=== PATIENT | female | born 1990 | race Caucasian/White ===

== ENCOUNTER 2019-11-03 09:09 | Outpatient (CLI) | payer OTHER, SELFPAY ==
[2019-11-03 09:45] LABS: Hemoglobin A1C 5.3 % (<5.7)
[2019-11-03 09:54] LABS: Cholesterol 170 mg/dL (0-200); HDL Direct 34 mg/dL; Triglycerides 166 mg/dL (<150)
[2019-11-03 10:05] LABS: LDL Cholesterol Direct 104 mg/dL
[2019-11-05 09:59] LABS: DHEA-Sulfate 110 mcg/dL (18-391)
[2019-11-05 21:03] LABS: FSH 3.7 mIU/mL (***); LH <0.2 mIU/mL (***); Progesterone 0.2 ng/mL (***); Prolactin 37.9 ng/mL (***)
[2019-11-06 15:07] LABS: Testosterone Free 1.1 pg/mL (0.1-6.4); Testosterone Total 6 ng/dL (2-45)
[2019-11-09 20:38] LABS: Estriol <0.10 ng/mL
== END 2019-11-03 09:10 | disposition home or self-care (01) ==
PROVIDERS: Visit Provider Obstetrics & Gynecology
DX: N92.1 Excessive and frequent menstruation with irregular cycle (principal)
CPT/HCPCS: 36415; 80061; 82627; 82677; 83001; 83002; 83036; 84144; 84146; 84402; 84403; 84443

== ENCOUNTER 2019-11-14 11:41 | Emergency (ER) | payer OTHER, SELFPAY ==
[2019-11-14 11:50] VITALS: BP 127/78; PULSE 91; RESP 16; TEMP 36.8; O2SAT 99
--- NOTE | 2019-11-14 12:21 | ED.EYEPROB ---
HPI - Eye Problem General Chief complaint: Eye Problems Stated complaint: eye redness Time Seen by Provider: 11/14/19 12:22 Source: patient and RN notes reviewed Mode of arrival: ambulatory Limitations: no limitations History of Present Illness HPI Narrative: 28 year old female who presents to [facility] care with 3 day history of redness and irritation to her right eye. Patient states that she has increase watering of her right eye but has not noted any purulent drainage. Patient states some burning and aching to her right eye but denies any acute sharp pain or decrease in her vision. Patient states that she does wear soft contact lens and removed them when she noticed the redness and irritation and has been wearing her glasses. MD chief complaint: eye pain, eye redness and other (watering) Onset (ago): day(s) (3) Onset description: gradual Duration: constant Location: right eye Eye Symptoms: burning, redness, pain and discharge Place: home Mechanism: none Severity: mild Severity scale (1-10): 3 If Pain, Quality: burning and aching Context: contact lens use Treatments Prior to Arrival: removed contact lens Related Data Patient tetanus UTD: Yes Home Medications Medication Instructions Recorded Confirmed vit no.[id number] 1 tablet PO DAILY 04/06/19 11/14/19 [Alive ] Allergies Allergy/AdvReac Type Severity Reaction Status Date / Time amoxicillin Allergy THROAT Verified 05/01/19 12:14 SWELLING cefadroxil [From Duricef] Allergy throat Verified 05/01/19 12:14 swelling Penicillins Allergy THROAT Verified 05/01/19 12:14 SWELLING POTASSIUM CLAVULANATE Allergy Mild throat Uncoded 05/01/19 12:14 swelling Review of Systems Review of Systems: Narrative: CONSTITUTIONAL: Denies fever, chills, or sweats. EYES: Denies visual changes,positive redness, and increase tearing of right eye ENT: Denies rhinorrhea, congestion, sore throat, or otalgia. CARDIOVASCULAR: Denies chest pain, palpitations, or edema. RESPIRATORY: Denies cough or dyspnea. GASTROINTESTINAL: Denies abdominal pain, nausea, vomiting, or diarrhea. GENITOURINARY: Denies dysuria or hematuria. SKIN: Denies rash or itching. MUSCULOSKELETAL: Denies back pain, joint pain, or myalgia. NEUROLOGIC: Denies headache, numbness, or weakness. PSYCHIATRIC: positive for history of anxiety or depression. All systems reviewed & are unremarkable except as noted in HPI and below PMFSH Past Medical History Medical History (Updated 11/15/19 @ 14:58 by Margarita John NP) Anxiety Asthma History of narcotic addiction in treatment now Migraine Surgical History Surgical History (Updated 11/15/19 @ 14:56 by Margarita John NP) Hx of myringotomy [place] teeth extracted Family History Family History Grandparent Breast cancer Mother Multiple sclerosis Parkinsonism Social History Social History (Updated 11/14/19 @ 13:02 by Margarita John NP) Smoking status: Former smoker Smoking end date: 02/04/19 Substance use: former Substance use type: amphetamines and opiates Living arrangements: with family Gender identity (if verbalized by the patient): Female Comments At time of signature, agree with nursing past medical, surgical, social history. There is no relevant family history pertinent to the presenting complaint Exam Narrative: Exam Narrative: GENERAL: Well-appearing, well-nourished, and in no acute distress. HEAD: Normocephalic, atraumatic. EYES: PERRLA and EOMI.redness to sclera of right eye and mild redness to conjunctiva of red eye, excessive watering with no purulent drainage noted ENT: Nares clear, no rhinorrhea or epistaxis. Mucous membranes moist. NECK: Supple. CHEST: Clear to auscultation. No respiratory distress. HEART: Regular rate and rhythm. No murmur heard. Normal peripheral pulses. ABDOMEN: Soft, nontender, nondistended, normal active mario
== END 2019-11-14 12:41 | disposition home or self-care (01) ==
PROVIDERS: Emergency Provider Registered Nurse
DX: H10.9 Unspecified conjunctivitis (principal); Z87.891 Personal history of nicotine dependence; J45.909 Unspecified asthma, uncomplicated
CPT/HCPCS: 99213; G0463

== ENCOUNTER 2020-01-29 16:49 | Outpatient (CLI) | payer OTHER, SELFPAY ==
[2020-01-29 18:31] LABS: Alanine Aminotransferase 23 U/L (4-35); Albumin Level 4.3 g/dL (3.5-5.1); Alkaline Phosphatase 103 U/L (38-126); Anion Gap 10 mmol/L (8-16); Aspartate Amino Transferase 28 U/L (14-36); Bilirubin,Total 0.3 mg/dL (0.2-1.3); Blood Urea Nitrogen 15 mg/dL (7-17); Carbon Dioxide 27 mmol/L (22-30); Chloride 104 mmol/L (98-107); Estimated Glomerular Filt Rate > 60; Glucose 101 mg/dL (65-105); Potassium 3.8 mmol/L (3.4-5.0); Sodium 141 mmol/L (137-145)
== END 2020-01-29 16:50 | disposition home or self-care (01) ==
PROVIDERS: Visit Provider Obstetrics & Gynecology
DX: M54.5 Low back pain (principal)
CPT/HCPCS: 36415; 80053

== ENCOUNTER 2020-06-12 15:50 | Emergency (ER) | payer OTHER, SELFPAY ==
[2020-06-12 16:00] VITALS: BP 116/72; PULSE 97; RESP 12; TEMP 36.8; O2SAT 99
--- NOTE | 2020-06-12 16:00 | ED.URI ---
HPI - URI/Sore Throat General Chief Complaint: Upper Respiratory Infection Stated Complaint: sore throat/earache Time Seen by Provider: 06/12/20 16:00 Source: patient and RN notes reviewed Mode of arrival: ambulatory Limitations: no limitations History of Present Illness HPI Narrative: 29 year old female who presents to [facility] care with complaints of sore throat, sinus drainage, and sinus pressure for the past 3-5 days with feelings of tightness in her chest with breathing today. Patient states that she has history of asthma and she has had to use her inhaler more for the past few days. Patient denies any fevers, chills, or sweats, denies any acute shortness of breath but tightness with deep inspiration, lungs clear to auscultation with SAO2 99% on room air. Patient states that her throat is increasingly sore with sinus pressure maxillary and frontal headache, has not taken any OTC pain medication or any sinus Meds. MD elicited complaint: sore throat, nasal congestion and sinus pain Pertinent past history: asthma Onset (ago): day(s) (3-5) Consistency: progressively worsening Severity: moderate Pain scale (0-10): 3 Description of mucous: clear Able to tolerate fluids by mouth: Yes Exacerbating factors: swallowing and deep breaths Relieving factors: nothing Associated symptoms: headache, rhinorrhea, nasal congestion, sore throat, cough and other (tight with breathing) Treatments prior to arrival: other (inhaler) Related Data Home Medications Medication Instructions Recorded Confirmed vit no.[id number] 1 tablet PO DAILY 04/06/19 11/14/19 [Alive ] albuterol sulfate INHALATION 06/12/20 fluticasone propion-salmeterol INHALATION 06/12/20 [Wixela Inhub] Allergies Allergy/AdvReac Type Severity Reaction Status Date / Time amoxicillin Allergy THROAT Verified 05/01/19 12:14 SWELLING cefadroxil [From Duricef] Allergy throat Verified 05/01/19 12:14 swelling Penicillins Allergy THROAT Verified 05/01/19 12:14 SWELLING POTASSIUM CLAVULANATE Allergy Mild throat Uncoded 05/01/19 12:14 swelling Review of Systems Review of Systems: Narrative: CONSTITUTIONAL: Denies fever, chills, or sweats. EYES: Denies visual changes, redness, or discharge. ENT: Positive rhinorrhea, congestion, sore throat, bilateral ear pressure CARDIOVASCULAR: Denies chest pain, palpitations, or edema, reports chest pressure with breathing RESPIRATORY: occasional dry cough denies acute dyspnea some tightness with deep breaths GASTROINTESTINAL: Denies abdominal pain, nausea, vomiting, or diarrhea. GENITOURINARY: Denies dysuria or hematuria. SKIN: Denies rash or itching. MUSCULOSKELETAL: Denies back pain, joint pain, or myalgia. NEUROLOGIC: Positive frontal headache,no numbness, or weakness. PSYCHIATRIC: Positive history anxiety or depression. All systems reviewed & are unremarkable except as noted in HPI and below PMFSH Past Medical History Medical History (Updated 06/12/20 @ 16:41 by Margarita John NP) Anxiety Asthma History of narcotic addiction in treatment now Migraine Surgical History Surgical History (Updated 06/12/20 @ 16:41 by Margarita John NP) Hx of myringotomy Hx of tonsillectomy [place] teeth extracted Family History Family History Grandparent Breast cancer Mother Multiple sclerosis Parkinsonism Social History Social History (Updated 06/12/20 @ 16:41 by Margarita John NP) Smoking status: Former smoker Smoking end date: 02/04/19 Substance use: former Substance use type: amphetamines and opiates Living arrangements: with family Gender identity (if verbalized by the patient): Female Comments At time of signature, agree with nursing past medical, surgical, social and family history. There is no relevant family history pertinent to the presenting complaint Exam Narrative: Exam Narrative: GENERAL: Well-appe
== END 2020-06-12 16:29 | disposition home or self-care (01) ==
PROVIDERS: Emergency Provider Registered Nurse
DX: J06.9 Acute upper respiratory infection, unspecified (principal); J02.9 Acute pharyngitis, unspecified; J45.20 Mild intermittent asthma, uncomplicated; Z87.891 Personal history of nicotine dependence
CPT/HCPCS: 87081; 87880; 99213; G0463

== ENCOUNTER 2020-08-12 09:38 | Emergency (ER) | payer OTHER, SELFPAY ==
[2020-08-12 09:52] VITALS: BP 117/77; PULSE 92; RESP 16; TEMP 37; O2SAT 99
--- NOTE | 2020-08-12 10:12 | ED.URI ---
HPI - URI/Sore Throat General Chief Complaint: Upper Respiratory Infection Stated Complaint: sinus issues/drainage/nasal pressure Time Seen by Provider: 08/12/20 10:02 Source: patient and RN notes reviewed Mode of arrival: ambulatory Limitations: no limitations History of Present Illness HPI Narrative: Patient presents today complaining of a 3-day history of postnasal drip, body aches, chest congestion, slight dry cough, tickling in the throat, nasal congestion, intermittent shortness of breath. History of asthma and seasonal allergies. States approximately 2 to 3 weeks ago she had similar symptoms for which she took Sudafed. States that that time her symptoms improved and she stopped taking the medication. Symptoms came back after she stopped taking the Sudafed. Denies fever, ear pain, nausea or vomiting, rhinorrhea, headache. States she takes a steroid inhaler for her asthma and Zyrtec daily for her allergies. MD elicited complaint: cough and nasal congestion Related Data Home Medications Medication Instructions Recorded Confirmed albuterol sulfate 90 mcg INHALATION PRN PRN 08/12/20 08/12/20 fluticasone propion-salmeterol 50 inh INHALATION DAILY 08/12/20 08/12/20 [Wixela Inhub] Allergies Allergy/AdvReac Type Severity Reaction Status Date / Time amoxicillin Allergy THROAT Verified 08/12/20 09:48 SWELLING cefadroxil [From Duricef] Allergy throat Verified 08/12/20 09:48 swelling Penicillins Allergy THROAT Verified 08/12/20 09:48 SWELLING POTASSIUM CLAVULANATE Allergy Mild throat Uncoded 08/12/20 09:48 swelling Review of Systems Review of Systems: Narrative: CONSTITUTIONAL: Denies fever, chills, or sweats. + Body aches EYES: Denies visual changes, redness, or discharge. ENT: Denies rhinorrhea, sore throat, or otalgia.+ Scratchy throat, nasal congestion, postnasal drip CARDIOVASCULAR: Denies chest pain, palpitations, or edema. RESPIRATORY:+ Slight dry cough, intermittent shortness of breath, chest congestion GASTROINTESTINAL: Denies abdominal pain, nausea, vomiting, or diarrhea. GENITOURINARY: Denies dysuria or hematuria. SKIN: Denies rash, itching, or wounds. MUSCULOSKELETAL: Denies back pain, joint pain, or myalgia. NEUROLOGIC: Denies headache, numbness, tingling, or weakness. PSYCH: Denies depression or anxiety. [facility] Past Medical History Medical History Anxiety Asthma History of narcotic addiction in treatment now Migraine Surgical History Surgical History Hx of myringotomy Hx of tonsillectomy [place] teeth extracted Family History Family History Grandparent Breast cancer Mother Multiple sclerosis Parkinsonism Social History Social History Smoking status: Former smoker Smoking end date: 02/04/19 Substance use: former Substance use type: amphetamines and opiates Gender identity (if verbalized by the patient): Female Comments At time of signature, I have reviewed and agree with nursing past medical, surgical, social and family history unless otherwise noted. Please see nursing chart for further information. There is no relevant family history pertinent to the presenting complaint Exam Narrative: Exam Narrative: GENERAL: Well-appearing, well-nourished, and in no acute distress. HEAD: Normocephalic, atraumatic. EYES: EOMI. No redness or drainage. Conjunctivae normal. ENT: Mucous membranes pink and moist. Nares mildly congested with rhinorrhea. Nasal turbinates mildly edematous. TMs normal bilaterally. Throat normal. Uvula midline. NECK: Normal AROM. Supple. No lymphadenopathy. CHEST: No respiratory distress. Clear to auscultation. HEART: Regular rate and rhythm. No murmur appreciated. Normal peripheral pulses. EXTRE
== END 2020-08-12 10:24 | disposition home or self-care (01) ==
PROVIDERS: Emergency Provider Nurse Practitioner
DX: J30.9 Allergic rhinitis, unspecified (principal); Z87.891 Personal history of nicotine dependence; J45.909 Unspecified asthma, uncomplicated
CPT/HCPCS: 99213; G0463

== ENCOUNTER 2020-09-09 16:47 | Emergency (ER) | payer OTHER, SELFPAY ==
[2020-09-09 16:56] VITALS: BP 122/81; PULSE 102; RESP 12; TEMP 37.2; O2SAT 99
--- NOTE | 2020-09-09 17:29 | ED.URI ---
HPI - URI/Sore Throat General Chief Complaint: Upper Respiratory Infection Stated Complaint: upper respiratory infection Time Seen by Provider: 09/09/20 17:13 Source: patient, RN notes reviewed and old records reviewed Mode of arrival: ambulatory Limitations: no limitations History of Present Illness HPI Narrative: Patient presents today complaint of a 2-day history of sore throat, congestion, postnasal drip, bilateral ear pressure, fatigue. Pain increases in her throat with swallowing. Currently rates her sore throat 3/10. She has been taking Zyrtec, Flonase, and Sudafed. She also uses a steroid inhaler for her asthma. She was seen 1 month ago at [facility] and diagnosed with allergic rhinitis. MD elicited complaint: sore throat Related Data Home Medications Medication Instructions Recorded Confirmed fluticasone propion-salmeterol 50 inh INHALATION DAILY 08/12/20 08/12/20 [Wixela Inhub] Allergies Allergy/AdvReac Type Severity Reaction Status Date / Time amoxicillin Allergy THROAT Verified 09/09/20 18:12 SWELLING cefadroxil [From Duricef] Allergy throat Verified 09/09/20 18:12 swelling Penicillins Allergy THROAT Verified 09/09/20 18:12 SWELLING POTASSIUM CLAVULANATE Allergy Severe throat Uncoded 09/09/20 18:12 swelling Review of Systems Review of Systems: Narrative: CONSTITUTIONAL: Denies body aches, fever, chills, or sweats.+ Fatigue EYES: Denies visual changes, redness, or discharge. ENT: + Throat, congestion, postnasal drip, bilateral ear pressure CARDIOVASCULAR: Denies chest pain, palpitations, or edema. RESPIRATORY: Denies cough or dyspnea. GASTROINTESTINAL: Denies abdominal pain, nausea, vomiting, or diarrhea. GENITOURINARY: Denies dysuria or hematuria. SKIN: Denies rash, itching, or wounds. MUSCULOSKELETAL: Denies back pain, joint pain, or myalgia. NEUROLOGIC: Denies headache, numbness, tingling, or weakness. PSYCH: Denies depression or anxiety. [facility] Past Medical History Medical History Anxiety Asthma History of narcotic addiction in treatment now Migraine Surgical History Surgical History Hx of myringotomy Hx of tonsillectomy [place] teeth extracted Family History Family History Grandparent Breast cancer Mother Multiple sclerosis Parkinsonism Social History Social History Smoking status: Former smoker Smoking end date: 02/04/19 Substance use: former Substance use type: amphetamines and opiates Gender identity (if verbalized by the patient): Female Comments At time of signature, I have reviewed and agree with nursing past medical, surgical, social and family history unless otherwise noted. Please see nursing chart for further information. There is no relevant family history pertinent to the presenting complaint Exam Narrative: Exam Narrative: GENERAL: Well-appearing, well-nourished, and in no acute distress. HEAD: Normocephalic, atraumatic. EYES: EOMI. No redness or drainage. Conjunctivae normal. ENT: Mucous membranes pink and moist. Nares mildly congested with clear rhinorrhea. Left-sided cerumen impaction. Right TM normal. Throat mildly erythematous without edema or exudate. Uvula midline. NECK: Normal AROM. Supple. No lymphadenopathy. CHEST: No respiratory distress. Clear to auscultation. HEART: Regular rate and rhythm. No murmur appreciated. Normal peripheral pulses. EXTREMITIES: Normal range of motion. No edema. SKIN: Warm, dry, no rash. Capillary refill normal. Normal skin turgor. NEURO: No focal deficits. Alert and oriented x3. Gait steady. PSYCH: Normal affect. No signs of depression or anxiety. Course Vital Signs Vital signs: Vital Signs Temperature 98.9 F 09/09/20 16:56 Pulse R
== END 2020-09-09 17:50 | disposition home or self-care (01) ==
PROVIDERS: Emergency Provider Nurse Practitioner
DX: J02.8 Acute pharyngitis due to other specified organisms (principal); J06.9 Acute upper respiratory infection, unspecified; Z20.822 Contact with and (suspected) exposure to COVID-19
CPT/HCPCS: 87081; 87426; 87880; 99213; C9803; G0463

== ENCOUNTER → 2020-12-02 00:41 | Outpatient (CLI) | payer OTHER, SELFPAY ==
[2020-12-02 17:06] LABS: SARS-CoV-2 RNA PCR Negative
== END ==
PROVIDERS: Visit Provider Otolaryngology
DX: Z01.812 Encounter for preprocedural laboratory examination (principal); Z20.822 Contact with and (suspected) exposure to COVID-19
CPT/HCPCS: C9803; U0003; U0005

== ENCOUNTER 2020-12-03 11:01 | Outpatient (CLI) | payer OTHER, SELFPAY | END 2020-12-03 11:02 | disposition home or self-care (01) | LOC: ANHBWCAUD 11:02 | PROVIDERS: Visit Provider Otolaryngology | DX: H66.90 Otitis media, unspecified, unspecified ear (principal) | CPT/HCPCS: 99199 ==

== ENCOUNTER 2020-12-05 00:32 | Day surgery (SDC) | payer OTHER, SELFPAY ==
[2020-11-27 15:00] VITALS: BMI 42.0
--- NOTE | 2020-12-03 06:38 | PM.HPGS ---
History of Present Illness History of Present Illness Consent: Risks, benefits, and alternatives have been discussed and questions answered. Patient agrees to proceed with procedure. Chief complaint: chronic otitis media Narrative: Yanci Charles is a 30 year old female with tubes present in both ears not functioning Review of Systems Review of Systems: All systems reviewed & are unremarkable except as noted in HPI and below PMFSH Past Medical History Medical History Anxiety Asthma History of narcotic addiction in treatment now Migraine Surgical History Surgical History Hx of myringotomy Hx of tonsillectomy [place] teeth extracted Family History Family History Grandparent Breast cancer Mother Multiple sclerosis Parkinsonism Social History Social History Smoking packs per day: 1 Smoking cigarettes per day: 20.0 Years smoked: 15 Smoking pack-years: 15.00 Smoking status: Current every day smoker Tobacco type: e-cigarettes/vaping Smoking end date: 02/04/19 Additional smoking assessment comments: stop smoking cigarettes jan Alcohol intake: never Substance use: former Substance use type: amphetamines and opiates Last use: 2 years in august Gender identity (if verbalized by the patient): Female Spiritual care concerns: No Meds Home Medications and Allergies Home Medications Medication Instructions Recorded Confirmed Type fluticasone propion-salmeterol 50 inh INHALATION DAILY 08/12/20 11/13/20 History [Wixela Inhub] albuterol sulfate INHALATION 11/27/20 History Allergies Allergy/AdvReac Type Severity Reaction Status Date / Time amoxicillin Allergy THROAT Verified 09/09/20 18:12 SWELLING cefadroxil [From Duricef] Allergy throat Verified 09/09/20 18:12 swelling Penicillins Allergy THROAT Verified 09/09/20 18:12 SWELLING POTASSIUM CLAVULANATE Allergy Severe throat Uncoded 09/09/20 18:12 swelling Exam Narrative: chest clear heart without murmurs abdomen soft tubes present in the ears but not function Assessment and Plan Additional Plan plan is removal tubes both ears
--- NOTE | 2020-12-04 09:46 | PM.HPGS ---
History of Present Illness History of Present Illness Consent: Risks, benefits, and alternatives have been discussed and questions answered. Patient agrees to proceed with procedure. Chief complaint: chronic otitis media Narrative: Yanci Charles is a 30 year old female side tubes for a long period of time with recurring infections having tubes removed Review of Systems Review of Systems: All systems reviewed & are unremarkable except as noted in HPI and below PMFSH Past Medical History Medical History Anxiety Asthma History of narcotic addiction in treatment now Migraine Surgical History Surgical History Hx of myringotomy Hx of tonsillectomy [place] teeth extracted Family History Family History Grandparent Breast cancer Mother Multiple sclerosis Parkinsonism Social History Social History Smoking packs per day: 1 Smoking cigarettes per day: 20.0 Years smoked: 15 Smoking pack-years: 15.00 Smoking status: Current every day smoker Tobacco type: e-cigarettes/vaping Smoking end date: 02/04/19 Additional smoking assessment comments: stop smoking cigarettes jan Alcohol intake: never Substance use: former Substance use type: amphetamines and opiates Last use: 2 years in august Gender identity (if verbalized by the patient): Female Spiritual care concerns: No Meds Home Medications and Allergies Home Medications Medication Instructions Recorded Confirmed Type fluticasone propion-salmeterol 50 inh INHALATION DAILY 08/12/20 11/13/20 History [Hola Inhub] albuterol sulfate INHALATION 11/27/20 History Allergies Allergy/AdvReac Type Severity Reaction Status Date / Time amoxicillin Allergy THROAT Verified 09/09/20 18:12 SWELLING cefadroxil [From Duricef] Allergy throat Verified 09/09/20 18:12 swelling Penicillins Allergy THROAT Verified 09/09/20 18:12 SWELLING POTASSIUM CLAVULANATE Allergy Severe throat Uncoded 09/09/20 18:12 swelling Exam Narrative: chest clear other murmurs abdomen soft sent extremities negative tubes in place on both sides Assessment and Plan Additional Plan removal bilateral myringotomy tubes
--- NOTE | 2020-12-04 14:48 | P.PNAN_ITS ---
Anes - Initial Pre Proc Eval Procedure: Operation Date: 12/05/20 10:15 Proposed Procedures p Removal Bilateral Myringotomy Tubes - Alverto Menon MD Date/Time: 12/04/20 14:48 Surgeon: Alverto Menon MD Pre Op Diagnosis: chronic otitis media Patient Data Age: 30 Gender: F Height: 1.52 m Weight: 97.7 kg Allergies Allergy/AdvReac Type Severity Reaction Status Date / Time amoxicillin Allergy THROAT Verified 12/05/20 08:56 SWELLING cefadroxil [From Duricef] Allergy throat Verified 12/05/20 08:56 swelling Penicillins Allergy THROAT Verified 12/05/20 08:56 SWELLING POTASSIUM CLAVULANATE Allergy Severe throat Uncoded 12/05/20 08:56 swelling Home Medications Medication Instructions Recorded Confirmed Type fluticasone propion-salmeterol 50 inh INHALATION DAILY 08/12/20 12/05/20 History [Wixela Inhub] albuterol sulfate 2 inh INHALATION Q2H PRN 11/27/20 12/05/20 History multivit with min-folic acid 1 tablet PO DAILY 12/05/20 12/05/20 History [Adult Multivitamin Gummies] Patient hx anesthesia problems: none Family hx anesthesia problems: none PMFSH Past Medical History Medical History Anxiety Asthma History of narcotic addiction in treatment now Migraine Surgical History Surgical History Hx of myringotomy Hx of tonsillectomy [place] teeth extracted Family History Family History Grandparent Breast cancer Mother Multiple sclerosis Parkinsonism Social History Social History Smoking packs per day: 1 Smoking cigarettes per day: 20.0 Years smoked: 15 Smoking pack-years: 15.00 Smoking status: Current every day smoker Tobacco type: e-cigarettes/vaping Smoking end date: 02/04/19 Additional smoking assessment comments: stop smoking cigarettes jan Alcohol intake: never Substance use: former Substance use type: amphetamines and opiates Last use: 2 years in august Living arrangements: with family Gender identity (if verbalized by the patient): Female Sexual Orientation (if Verbalized by the Patient): Straight or Heterosexual Spiritual care concerns: No Anes - Eval Final PreProcedure Day of Procedure 12/04/20 14:48 Patient weight: morbidly obese Heart: regular rate and rhythm Lungs: clear to auscultation and normal air movement Airway: Mallampati scale Neurological: alert and oriented Last oral intake: >/= 8 hours ASA classification: III Emergent: no Anesthetic plan: proceed Anesthesia type and monitoring: general GIVS and LMA Informed Consent: The patient's anesthetic plan and its attendant risks and benefits were discussed with the patient/family/POA. Questions were solicited and answers provided to the satisfaction of the patient/family/POA.
[2020-12-05] VITALS (8 sets, daily range): BP systolic 111–128; BP diastolic 64–80; PULSE 77–87; RESP 12–18; TEMP 36.6; O2SAT 98–100
--- NOTE | 2020-12-05 06:10 | WPDHPUPDATE1 ---
History and Physical Update Update Date/Time: 12/05/20 06:10 History and Physical has been reviewed, including an updated exam of the patient. There are NO changes in the patient's condition. Risks, benefits, and alternatives have been discussed and questions answered. Patient agrees to proceed with procedure.
[2020-12-05] MEDS: LACTATED RINGERS 1,000 ML 30 ML IV CONT (08:47)
--- NOTE | 2020-12-05 10:19 | W.PM.PROC2 ---
Procedure Note - Detailed Date of Procedure 12/05/20 Pre-op Diagnosis chronic otitis media Post-op Diagnosis same Procedure Performed removal tubes both sides Surgeon Alverto Menon MD Description of Procedure patient was prepped and draped fashion general anesthesia the right ear was inspected wax and a tube was removed tube had obviously the broken into pieces cell removed the left side wax and a T-tube was removed patient awakened returned to recovery in good condition
== END 2020-12-05 11:46 | disposition home or self-care (01) ==
PROVIDERS: Visit Provider Otolaryngology
PROC: (CPT 69424; principal; 2020-12-05 10:15)
DX: Z45.82 Encounter for adjustment or removal of myringotomy device (stent) (tube) (principal); T85.898A Other specified complication of other internal prosthetic devices, implants and grafts, initial encounter; Y83.8 Other surgical procedures as the cause of abnormal reaction of the patient, or of later complication, without mention of misadventure at the time of the procedure; J45.909 Unspecified asthma, uncomplicated; Z79.51 Long term (current) use of inhaled steroids; F17.290 Nicotine dependence, other tobacco product, uncomplicated; E66.01 Morbid (severe) obesity due to excess calories; Z68.41 Body mass index [BMI] 40.0-44.9, adult
CPT/HCPCS: 69424; J2250; J2405; J2704; J7120

== ENCOUNTER 2020-12-28 15:33 | Emergency (ER) | payer OTHER, SELFPAY ==
[2020-12-28 15:41] VITALS: BP 138/77; PULSE 108; RESP 16; TEMP 36.9; O2SAT 99
--- NOTE | 2020-12-28 16:42 | ED.BACK ---
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 Patient states she still a feeling popping sensation and since has noted some spasm-like sensations when she perform certain motions. Patient states when she flexes it seems to stretch out the most only helped the discomfort. Patient denies loss of bowel or bladder function or saddle paresthesia. Patient denies loss of range of motion. Patient denies any other symptoms or injuries. Related Data Home Medications Medication Instructions Recorded Confirmed fluticasone propion-salmeterol 50 inh INHALATION DAILY 08/12/20 12/28/20 [Wixela Inhub] albuterol sulfate 2 inh INHALATION Q2H PRN 11/27/20 12/28/20 Adult Multivitamin Gummies 1 tablet PO DAILY 12/05/20 12/28/20 Allergies Allergy/AdvReac Type Severity Reaction Status Date / Time amoxicillin Allergy THROAT Verified 12/28/20 15:49 SWELLING cefadroxil [From Duricef] Allergy throat Verified 12/28/20 15:49 swelling Penicillins Allergy THROAT Verified 12/28/20 15:49 SWELLING POTASSIUM CLAVULANATE Allergy Severe throat Uncoded 12/28/20 15:49 swelling Review of Systems Review of Systems: CONSTITUTIONAL: Denies fever, chills, or sweats. EYES: Denies visual changes, redness, or discharge. ENT: Denies rhinorrhea, congestion, sore throat, or otalgia. CARDIOVASCULAR: Denies chest pain, palpitations, or edema. RESPIRATORY: Denies cough or dyspnea. GASTROINTESTINAL: Denies abdominal pain, nausea, vomiting, or diarrhea. GENITOURINARY: Denies dysuria or hematuria. SKIN: Denies rash or itching. MUSCULOSKELETAL: Reports low back pain, denies joint pain, or myalgia. NEUROLOGIC: Denies headache, numbness, dizziness, or weakness. PSYCHIATRIC: Denies anxiety or depression. [facility] Past Medical History Medical History Anxiety Asthma History of narcotic addiction in treatment now Migraine Surgical History Surgical History Hx of myringotomy Hx of tonsillectomy [place] teeth extracted Family History Family History Grandparent Breast cancer Mother Multiple sclerosis Parkinsonism Social History Social History Smoking packs per day: 1 Smoking cigarettes per day: 20.0 Years smoked: 15 Smoking pack-years: 15.00 Smoking status: Current every day smoker Tobacco type: e-cigarettes/vaping Smoking end date: 02/04/19 Additional smoking assessment comments: stop smoking cigarettes jan Alcohol intake: never Substance use: former Substance use type: amphetamines and opiates Last use: 2 years in august Gender identity (if verbalized by the patient): Female Sexual Orientation (if Verbalized by the Patient): Straight or Heterosexual Spiritual care concerns: No Exam Narrative: GENERAL: Well-appearing, well-nourished, and in no acute distress. HEAD: Normocephalic, atraumatic. EYES: PERRLA and EOMI. NECK: Supple. No adenopathy or masses. CHEST: Clear to auscultation. No respiratory distress. No wheezes rales or rhonchi HEART: Regular rate and rhythm. No murmur heard. Normal peripheral pulses. BACK: No step-offs palpated. Flexion and extension intact. Rotation strength. There is diffuse tenderness to palpation to the lumbar area greater on the left side consistent with muscle spasming. EXTREMITIES: Normal range of motion. No edema. SKIN: Warm, dry, no rash. NEURO: No focal deficits. Alert and oriented x3. PSYCH: Ramila
== END 2020-12-28 16:59 | disposition home or self-care (01) ==
PROVIDERS: Emergency Provider General Practice; PCP Emergency Medicine
DX: S39.012A Strain of muscle, fascia and tendon of lower back, initial encounter (principal); J45.909 Unspecified asthma, uncomplicated; Z87.891 Personal history of nicotine dependence; X50.0XXA Overexertion from strenuous movement or load, initial encounter
CPT/HCPCS: 99283

== ENCOUNTER 2021-02-25 10:47 | Emergency (ER) | payer OTHER, SELFPAY ==
--- NOTE | 2021-02-25 10:54 | ED.URI ---
HPI - URI/Sore Throat General Chief Complaint: Upper Respiratory Infection Stated Complaint: Cough,Fever,Chest Congestion,Shortness of Breath Time Seen by Provider: 02/25/21 10:54 Source: patient, RN notes reviewed and old records reviewed Mode of arrival: ambulatory Limitations: no limitations History of Present Illness HPI Narrative: 30-year-old female presents to the [facility] with complaints of I think I have a sinus infection. Patient has a history of anxiety, migraines and asthma. Reports that she is a smoker/vapor. Patient reports that for the last week or so she has had mucus, intermittent runny nose and nasal congestion with facial pressure. Positive productive cough, chest tightness with coughing. Has tried Mucinex, Advil, DayQuil and allergy relief. States she is used her albuterol inhaler once daily for the last week with minimal improvement. Reports fevers of 100 a couple of days ago. Patient appears nontoxic. MD elicited complaint: cough, rhinorrhea, nasal congestion and sinus pain Related Data Home Medications Medication Instructions Recorded Confirmed fluticasone propion-salmeterol 50 inh INHALATION DAILY 08/12/20 02/25/21 [Wixela Inhub] albuterol sulfate 2 inh INHALATION Q2H PRN 11/27/20 02/25/21 Adult Multivitamin Gummies 1 tablet PO DAILY 12/05/20 02/25/21 Allergies Allergy/AdvReac Type Severity Reaction Status Date / Time amoxicillin Allergy THROAT Verified 02/25/21 11:22 SWELLING cefadroxil [From Duricef] Allergy throat Verified 02/25/21 11:22 swelling Penicillins Allergy THROAT Verified 02/25/21 11:22 SWELLING POTASSIUM CLAVULANATE Allergy Severe throat Uncoded 02/25/21 11:22 swelling Review of Systems Review of Systems: All systems reviewed & are unremarkable except as noted in HPI and below Constitutional: Constitutional: Reports as per HPI and Reports fever(s) Eyes: Eyes: Reports no additional eye complaints ENT: Reports as per HPI and Reports nasal congestion Cardiovascular: Cardiovascular: Reports no additional cardiovascular complaints Respiratory: Respiratory: Reports as per HPI, Reports chest congestion, Reports cough, Reports dyspnea and Reports wheezing Gastrointestinal: Gastrointestinal: Reports no additional gastrointestinal complaints, Denies abdominal pain, Denies nausea and Denies vomiting Musculoskeletal: Musculoskeletal: Reports no additional musculoskeletal complaints Integumentary/Breasts: Skin/Breast: Reports system reviewed and no additional complaints, except as docu Neurologic: Reports system reviewed and no additional complaints, except as documented Psychiatric: Psychiatric: Reports no additional psychiatric complaints Allergic/Immunologic: Allergic/Immunologic: Reports no additional allergic/immunologic complaints PMFSH Past Medical History Medical History Anxiety Asthma History of narcotic addiction in treatment now Migraine Surgical History Surgical History Hx of myringotomy Hx of tonsillectomy [place] teeth extracted Family History Family History Grandparent Breast cancer Mother Multiple sclerosis Parkinsonism Social History Social History Smoking packs per day: 1 Smoking cigarettes per day: 20.0 Years smoked: 15 Smoking pack-years: 15.00 Smoking status: Current every day smoker Tobacco type: e-cigarettes/vaping Smoking end date: 02/04/19 Additional smoking assessment comments: stop smoking cigarettes jan Alcohol intake: never Substance use: former Substance use type: amphetamines and opiates Last use: 2 years in august Gender identity (if verbalized by the patient): Female Sexual Orientation (if Verbalized by the Patient): Straight or Heterosexual Spiritual care concerns: No Com
[2021-02-25 10:57] VITALS: BP 126/83; PULSE 96; RESP 20; TEMP 36.9; O2SAT 99
[2021-02-25 11:04] VITALS: BP 126/83; PULSE 96; RESP 20; TEMP 36.9; O2SAT 99
[2021-02-25] MEDS: predniSONE 20 MG TABLET 60 MG PO (11:08)
[2021-02-25] MEDS: IPRATROPIUM BR 0.02% INH SOLN 0.5 MG/2.5 ML VIAL INHALATION (11:10)
[2021-02-25] MEDS: ALBUTEROL SULFATE NEB 2.5 MG/3 ML INH INHALATION (11:10)
[2021-02-26 17:35] LABS: SARS-CoV-2 RNA PCR Positive
== END 2021-02-25 11:54 | disposition home or self-care (01) ==
PROVIDERS: Emergency Provider Nurse Practitioner
DX: U07.1 COVID-19 (principal); F17.200 Nicotine dependence, unspecified, uncomplicated; J45.909 Unspecified asthma, uncomplicated
CPT/HCPCS: 87081; 87880; 99213; C9803; G0463; J7512; U0003; U0005

== ENCOUNTER 2021-03-18 11:50 | Emergency (ER) | payer OTHER, SELFPAY ==
--- NOTE | ~2021-03-18 | CT_ITS ---
EXAMINATION: CT brain wo [facility] EXAM DATE: 03/18/2021 13:22 INDICATION: Fall, head injury, headache. TECHNIQUE: Spiral CT of the head was performed without contrast. Axial, coronal and sagittal images were reviewed. The dose-length product (DLP) for this examination was 605.33 mGy-cm. The exposure w as tailored according to patient size, and iterative reconstruction (ASIR) was used as additional dos e reduction technique. There is no prior study for comparison. FINDINGS: There is no acute intraparenchymal hemorrhage. No evidence of intraparenchymal brain mass lesion. No evidence of acute infarction. There is no mass effect or midline shift. The ventricles are normal in size. There are no extra-axial collections. There are no acute calvarial fractures. T he orbits are unremarkable. Soft tissue is unremarkable. The visualized sinuses and mastoid air noe ls are well aerated. IMPRESSION: 1. Normal head CT examination. Reviewed, dictated and finalized at location B. [employer] MACHINE OPERATOR
[2021-03-18 11:57] VITALS: BP 108/87; PULSE 111; RESP 20; TEMP 35.8; O2SAT 100
[2021-03-18] MEDS: ONDANSETRON HCL ODT 4 MG TABLET PO (13:38)
--- NOTE | 2021-03-18 14:10 | ED.GENADULT ---
HPI - General Adult General Chief complaint: Headache Stated complaint: MIGRAINE H/A, HIT HEAD SAT. Time Seen by Provider: 03/18/21 12:37 Source: patient Mode of arrival: ambulatory Limitations: no limitations History of Present Illness HPI narrative: Patient is a 30-year-old female presenting with chief complaint of worsening headache that began 3 days ago after accidentally striking her head on a dryer. Patient denies loss of consciousness. Patient reports some photophobia, nausea and 2 episodes of vomiting. Patient reports when she concentrates she notices the headaches worsening. Patient reports a history of migraines but denies this being like her previous migraines. Patient reports she has taken ibuprofen for her discomfort. She denies any changes to hearing. She denies any neurological deficits to her speech or upper or lower extremities. Patient denies neck pain. Related Data Home Medications Medication Instructions Recorded Confirmed fluticasone propion-salmeterol 50 inh INHALATION DAILY 08/12/20 02/25/21 [Wixela Inhub] albuterol sulfate 2 inh INHALATION Q2H PRN 11/27/20 02/25/21 Adult Multivitamin Gummies 1 tablet PO DAILY 12/05/20 02/25/21 Allergies Allergy/AdvReac Type Severity Reaction Status Date / Time clavulanic acid Allergy Severe Potassium Verified 03/18/21 13:05 Clavulanate=throat swelling amoxicillin Allergy THROAT Verified 03/18/21 12:23 SWELLING cefadroxil [From Duricef] Allergy throat Verified 03/18/21 12:23 swelling Penicillins Allergy THROAT Verified 03/18/21 12:23 SWELLING POTASSIUM CLAVULANATE Allergy Severe throat Uncoded 03/18/21 12:23 swelling Review of Systems Review of Systems: CONSTITUTIONAL: Denies fever, chills, or sweats. EYES: Reports photophobia denies visual changes, redness, or discharge. ENT: Denies rhinorrhea, congestion, sore throat, or otalgia. CARDIOVASCULAR: Denies chest pain, palpitations, or edema. RESPIRATORY: Denies cough or dyspnea. GASTROINTESTINAL: Reports nausea and vomiting denies abdominal pain or diarrhea. GENITOURINARY: Denies dysuria or hematuria. SKIN: Denies rash or itching. MUSCULOSKELETAL: Denies back pain, joint pain, or myalgia. NEUROLOGIC: Reports headache, denies numbness, dizziness, or weakness. PSYCHIATRIC: Denies anxiety or depression. [facility] Past Medical History Medical History Anxiety Asthma History of narcotic addiction in treatment now Migraine Surgical History Surgical History Hx of myringotomy Hx of tonsillectomy [place] teeth extracted Family History Family History Grandparent Breast cancer Mother Multiple sclerosis Parkinsonism Social History Social History Smoking packs per day: 1 Smoking cigarettes per day: 20.0 Years smoked: 15 Smoking pack-years: 15.00 Smoking status: Current every day smoker Tobacco type: e-cigarettes/vaping Smoking end date: 02/04/19 Additional smoking assessment comments: stop smoking cigarettes jan Alcohol intake: never Substance use: former Substance use type: amphetamines and opiates Last use: 2 years in august Gender identity (if verbalized by the patient): Female Sexual Orientation (if Verbalized by the Patient): Straight or Heterosexual Spiritual care concerns: No Exam Narrative: GENERAL: Well-appearing, well-nourished, and in no acute distress. HEAD: Abrasion with contusion to the frontal left aspect of patient's forehead. No divot palpated. EYES: PERRLA and EOMI. ENT: Nares clear, no rhinorrhea or epistaxis. Mucous membranes moist. Oropharynx without tonsillar hypertrophy exudate or other lesions. Bilateral TMs pearly aiken nonbulging. No hemotympanum. NECK: Supple. No adenopathy or masses. CHEST: Clear to auscultation.
[2021-03-18] MEDS: methylPREDNISolone SOD SUCC 125 MG VIAL IM (14:29)
[2021-03-18] MEDS: KETOROLAC (*BKC) 60 MG/2 ML VIAL IM (14:31)
[2021-03-18 15:01] VITALS: TEMP 35.8
== END 2021-03-18 15:22 | disposition home or self-care (01) ==
PROVIDERS: Emergency Provider Emergency Medicine
DX: G44.309 Post-traumatic headache, unspecified, not intractable (principal); F07.81 Postconcussional syndrome; J45.909 Unspecified asthma, uncomplicated; F17.290 Nicotine dependence, other tobacco product, uncomplicated
CPT/HCPCS: 70450; 96372; 99284; A9270; J1885; J2930

== ENCOUNTER 2021-06-03 09:10 | Outpatient (CLI) | payer OTHER, SELFPAY ==
[2021-06-03 11:08] LABS: Basophils Absolute Auto 0.1 K/mm3 (0.0-0.1); Eosinophils Absolute Auto 0.2 K/mm3 (0-0.3); Eosinophils Percent Auto 2.2 % (0-4.4); Hemoglobin 13.7 g/dL (12.0-15.0); Immature Granulocyte Absolute 0.04 K/mm3 (0.00-0.031); Immature Granulocyte Percent A 0.5 % (0-0.5); Lymphocytes Absolute Auto 2.34 K/mm3 (0.9-3.2); Lymphocytes Percent Auto 28.8 % (18.3-44.2); Mean Corpuscular HGB Conc 33.4 g/dl (32-36); Mean Corpuscular Hemoglobin 30.4 pg (26-34); Mean Corpuscular Volume 91.1 fl (80-100); Mean Platelet Volume 9.8 fl (7.4-10.4); Monocytes Absolute Auto 0.5 K/mm3 (0.1-0.6); Monocytes Percent Auto 5.9 % (2.6-8.5); Neutrophils Percent Auto 61.6 % (45.5-73.1); Platelet Count Result 319 k/mm3 (150-375); Red Cell Distribution Width 12.6 % (11.5-14.5); White Blood Count 8.1 K/mm3 (4.5-10.0)
[2021-06-03 11:24] LABS: Hemoglobin A1C 4.8 % (<5.7)
[2021-06-03 11:49] LABS: Cholesterol 173 mg/dL (0-200); HDL Direct 47 mg/dL; Triglycerides 87 mg/dL (<150)
[2021-06-03 11:59] LABS: Albumin Level 4.4 g/dL (3.5-5.1)
[2021-06-03 12:01] LABS: LDL Cholesterol Direct 104 mg/dL
[2021-06-05 12:53] LABS: DHEA-Sulfate 53 mcg/dL (18-391); Sex Hormone Binding Globulin 23 nmol/L (17-124)
[2021-06-06 06:40] LABS: FSH 3.9 mIU/mL (***); Prolactin 6.4 ng/mL (***)
[2021-06-07 13:27] LABS: Testosterone Free 2.1 pg/mL (0.1-6.4); Testosterone Total 14 ng/dL (2-45)
[2021-06-07 22:57] LABS: Estradiol, Ultrasensitive 68 pg/mL
== END 2021-06-03 09:11 | disposition home or self-care (01) ==
PROVIDERS: Visit Provider Obstetrics & Gynecology
DX: N92.6 Irregular menstruation, unspecified (principal)
CPT/HCPCS: 36415; 80061; 82040; 82627; 82670; 83001; 83002; 83036; 83498; 84146; 84270; 84402; 84403; 84443; 85025

== ENCOUNTER 2022-03-06 10:14 | Emergency (ER) | payer OTHER, SELFPAY ==
--- NOTE | ~2022-03-06 | XR_ITS ---
EXAMINATION: XR elbow LT min 3V DATE: 03/06/2022 10:49 INDICATION: Left elbow injury. TECHNIQUE: 4 views of left elbow were obtained. COMPARISON: None. FINDINGS: Bone alignment is normal. No fracture. Joint spaces are normal. No elbow joint effusion. IMPRESSION: 1. No fracture. Reviewed, dictated and finalized at location A. IMPRESSION: 1. No fracture.
[2022-03-06 10:32] VITALS: BP 132/78; PULSE 97; RESP 16; TEMP 37.1; O2SAT 99
--- NOTE | 2022-03-06 10:56 | PC.NURSE ---
Patient to the ED with complaints of left elbow pain after hitting it in her car this morning. Patient has no visible injury. Pulses intact. Patient complains of pain when extending arm
--- NOTE | 2022-03-06 11:12 | ED.GENADULT ---
HPI - General Adult General Chief complaint: Extremity Injury, Upper Stated complaint: L. elbow injury Time Seen by Provider: 03/06/22 10:50 History of Present Illness HPI narrative: this is a 31-year-old female presenting ED with elbow pain. Patient was getting in her car when she struck her elbow on the doorjamb. She says her elbow hurts when she moves it. There is no deformity or swelling. Related Data Home Medications Medication Instructions Recorded Confirmed fluticasone 250 mcg-salmeterol 50 50 inh inhalation DAILY 08/12/20 07/03/21 mcg/dose blistr powdr for inhalation (Wixela Inhub) albuterol sulfate 90 mcg/actuation 2 inh inhalation Q2H PRN Shortness 11/27/20 07/03/21 aerosol inhaler Of Breath multivitamin with minerals-folic 1 tablet PO DAILY 12/05/20 07/03/21 acid 200 mcg chewable tablet (Adult Multivitamin Gummies) Allergies Allergy/AdvReac Type Severity Reaction Status Date / Time clavulanic acid Allergy Severe Potassium Verified 10/16/21 09:44 Clavulanate=throat swelling amoxicillin Allergy THROAT Verified 10/16/21 09:44 SWELLING cefadroxil [From Duricef] Allergy throat Verified 10/16/21 09:44 swelling Penicillins Allergy THROAT Verified 10/16/21 09:44 SWELLING POTASSIUM CLAVULANATE Allergy Severe throat Uncoded 10/16/21 09:44 swelling Review of Systems Review of Systems: CONSTITUTIONAL: Denies night sweats. EYES: No eye pain ENT: Denies rhinorrhea CARDIOVASCULAR: Denies palpitations RESPIRATORY: Denies hemoptysis GASTROINTESTINAL: Denies hematemesis GENITOURINARY: Denies hematuria. SKIN: Denies rash MUSCULOSKELETAL: Denies myalgia. NEUROLOGIC: Denies weakness. PSYCHIATRIC: Denies delusions PMFSH Past Medical History Medical History Anxiety Asthma History of narcotic addiction in treatment now Migraine Surgical History Surgical History History of placement of ear tubes History of tubal ligation Hx of myringotomy Hx of tonsillectomy [place] teeth extracted Family History Family History Grandparent Breast cancer Mother Multiple sclerosis Parkinsonism Social History Social History Smoking packs per day: 1 Smoking cigarettes per day: 20.0 Years smoked: 15 Smoking pack-years: 15.00 Smoking status: Current every day smoker Tobacco type: e-cigarettes/vaping Smoking end date: 02/04/19 Additional smoking assessment comments: stop smoking cigarettes jan Alcohol intake: never Substance use: former Substance use type: amphetamines and opiates Last use: 2 years in august Gender identity (if verbalized by the patient): Female Sexual Orientation (if Verbalized by the Patient): Straight or Heterosexual Spiritual care concerns: No Exam Narrative: APPEARANCE: No apparent distress. Head atraumatic. EYES: PERRLA/EOMI, NOSE: Normal no drainage NECK: Supple, Trachea midline RESPIRATORY: CTAB, No increased work of breathing. CARDIOVASCULAR: S1S2 appreciated ABDOMINAL: Soft, nontender, nondistended, MUSCULOSKELETAl: No obvious deformities Bruising or swelling to the left elbow. There is point tenderness over the tip of the elbow. There is some pain with range of movement. Pulses are +2 cap refills less than 2 seconds. NEURO: Alert. Moving 4/4 extremities SKIN:: Warm, dry. Normal color PSYCHIATRIC: Normal affect Course Vital Signs Vital signs: Vital Signs Temperature 98.7 F 03/06/22 10:32 Pulse Rate 97 03/06/22 10:32 Respiratory Rate 16 03/06/22 10:32 Blood Pressure 132/78 03/06/22 10:32 Pulse Oximetry 99 03/06/22 10:32 Oxygen Delivery Room Air 03/06/22 10:32 Temperature 98.7 F 03/06/22 10:32 Pulse Rate 97 03/06/22 10:32 Respiratory Rate 16 03/06/22
[2022-03-06] MEDS: IBUPROFEN 400 MG TABLET 800 MG PO (11:19)
[2022-03-06] MEDS: ACETAMINOPHEN 500 MG TABLET 1000 MG PO (11:19)
== END 2022-03-06 11:37 | disposition home or self-care (01) ==
PROVIDERS: Emergency Provider Emergency Medicine
DX: S59.902A Unspecified injury of left elbow, initial encounter (principal); J45.909 Unspecified asthma, uncomplicated; F17.290 Nicotine dependence, other tobacco product, uncomplicated; W22.8XXA Striking against or struck by other objects, initial encounter
CPT/HCPCS: 73080; 99283; A9270

== ENCOUNTER 2022-10-25 11:24 | Emergency (ER) | payer OTHER, SELFPAY ==
[2022-10-25 11:30] VITALS: BP 113/71; PULSE 91; RESP 18; TEMP 37.1; O2SAT 100
--- NOTE | 2022-10-25 12:09 | ED.GENADULT ---
HPI - General Adult General Chief complaint: Upper Respiratory Infection Stated complaint: Sore Throat/Cough Source: patient Mode of arrival: ambulatory Limitations: no limitations History of Present Illness HPI narrative: Patient presents for evaluation of sore throat for the last 4 days. 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 She has experience sinus congestion and some shortness of breath. She is asthmatic. She has nebulizer solution at home but does not have an albuterol inhaler. No fever, chills, nausea, vomiting, diarrhea. She smokes marijuana and uses an electronic cigarette. She is not taking any medication for her symptoms. Related Data Home Medications Medication Instructions Recorded Confirmed fluticasone 250 mcg-salmeterol 50 50 inh inhalation DAILY 08/12/20 10/25/22 mcg/dose blistr powdr for inhalation (Yaquelinxsegundo Inhub) albuterol sulfate 90 mcg/actuation 2 inh inhalation Q2H PRN Shortness 11/27/20 10/25/22 aerosol inhaler Of Breath multivitamin with minerals-folic 1 tablet PO DAILY 12/05/20 10/25/22 acid 200 mcg chewable tablet (Adult Multivitamin Gummies) acetazolamide 500 mg 500 mg PO BID 10/25/22 10/25/22 capsule,extended release vilazodone 10 mg tablet 10 mg PO DAILY 10/25/22 10/25/22 Allergies Allergy/AdvReac Type Severity Reaction Status Date / Time clavulanic acid Allergy Severe Potassium Verified 10/25/22 11:48 Clavulanate=throat swelling amoxicillin Allergy THROAT Verified 10/25/22 11:48 SWELLING cefadroxil [From Duricef] Allergy throat Verified 10/25/22 11:48 swelling Penicillins Allergy THROAT Verified 10/25/22 11:48 SWELLING POTASSIUM CLAVULANATE Allergy Severe throat Uncoded 10/25/22 11:48 swelling Review of Systems Review of Systems: CONSTITUTIONAL: Denies fever, chills, or sweats. EYES: Denies visual changes, redness, or discharge. ENT: Reports sore throat and sinus congestion. Denies ear pain CARDIOVASCULAR: Denies chest pain, palpitations, or edema. RESPIRATORY: Reports SOB. Denies cough GASTROINTESTINAL: Denies abdominal pain, nausea, vomiting, or diarrhea. GENITOURINARY: Denies dysuria or hematuria. SKIN: Denies rash or itching. MUSCULOSKELETAL: Denies back pain, joint pain, or myalgia. NEUROLOGIC: Denies headache, numbness, dizziness, or weakness. PSYCHIATRIC: Denies anxiety or depression. [facility] INCLUDES [facility] Past Medical History Medical History Anxiety Asthma History of narcotic addiction in treatment now Migraine Surgical History Surgical History History of placement of ear tubes History of tubal ligation Hx of myringotomy Hx of tonsillectomy [place] teeth extracted Family History Family History Grandparent Breast cancer Mother Multiple sclerosis Parkinsonism Social History Social History Smoking packs per day: 1 Smoking cigarettes per day: 20.0 Years smoked: 15 Smoking pack-years: 15.00 Smoking status: Current every day smoker Tobacco type: e-cigarettes/vaping Smoking end date: 02/04/19 Additional smoking assessment comments: stop smoking cigarettes jan Alcohol intake: never Substance use: former Substance use type: amphetamines and opiates Last use: 2 years in august Living arrangements: with family Gender identity (if verbalized by the patient): Female Sexual Orientation (if Verbalized by the Patient): Straight or Heterosexual Spiritual care concerns: No Exam Narrative: GENERAL: Well-appearing, well-nourished, and in no acute distress. HEAD: Normocephalic, atraumatic. EYES: PERRLA and EOMI. ENT: Nares clear, no rhinorrhea or epistaxis. Mucous membranes moist. Posterior pharyngeal erythema without exudate. Uvula is midline. Bila
== END 2022-10-25 12:05 | disposition home or self-care (01) ==
PROVIDERS: Emergency Provider Nurse Practitioner
DX: J02.0 Streptococcal pharyngitis (principal); J45.909 Unspecified asthma, uncomplicated; F17.290 Nicotine dependence, other tobacco product, uncomplicated; F41.9 Anxiety disorder, unspecified; F12.90 Cannabis use, unspecified, uncomplicated
CPT/HCPCS: 87880; 99213; G0463

== ENCOUNTER 2022-11-24 11:39 | Emergency (ER) | payer OTHER, SELFPAY ==
--- NOTE | 2022-11-24 11:45 | ED.URI ---
HPI - URI/Sore Throat General Chief Complaint: Upper Respiratory Infection Stated Complaint: poss pink eye/sore throat Source: patient and RN notes reviewed Mode of arrival: ambulatory Limitations: no limitations History of Present Illness HPI Narrative: Patient is a 32-year-old female who presents to the [facility] with multiple complaints. Patient reports the redness and eye drainage to her right eye that has been present for 4 days. Patient states that she wakes up with the eye matted shut. Her friend's kids recently had pinkeye, so she has been using their eyedrops for the past 4 days without relief. Patient also reports sore throat, nasal congestion, and nasal drainage for the past 4 days. States that she gets strep frequently. She denies chest pain or shortness of breath. Denies abdominal pain, nausea, vomiting, diarrhea. Denies recent fevers. Related Data Home Medications Medication Instructions Recorded Confirmed fluticasone 250 mcg-salmeterol 50 50 inh inhalation DAILY 08/12/20 11/24/22 mcg/dose blistr powdr for inhalation (Wixela Inhub) albuterol sulfate 90 mcg/actuation 2 inh inhalation Q2H PRN Shortness 11/27/20 11/24/22 aerosol inhaler Of Breath multivitamin with minerals-folic 1 tablet PO DAILY 12/05/20 11/24/22 acid 200 mcg chewable tablet (Adult Multivitamin Gummies) fluticasone 100 mcg-salmeterol 50 inhalation 11/24/22 mcg/dose blistr powdr for inhalation (Advair Diskus) vilazodone 10 mg tablet mg 11/24/22 Allergies Allergy/AdvReac Type Severity Reaction Status Date / Time amoxicillin Allergy THROAT Verified 11/24/22 12:09 SWELLING cefadroxil [From Duricef] Allergy throat Verified 11/24/22 12:09 swelling clavulanic acid Allergy Swelling Verified 11/24/22 12:09 [From Augmentin] Penicillins Allergy THROAT Verified 11/24/22 12:09 SWELLING Review of Systems Review of Systems: CONSTITUTIONAL: Denies fever, chills, or sweats. EYES: Denies visual changes. Reports right eye redness and drainage. ENT: Reports sore throat, nasal congestion, and nasal drainage. CARDIOVASCULAR: Denies chest pain, palpitations, or edema. RESPIRATORY: Denies cough or dyspnea. GASTROINTESTINAL: Denies abdominal pain, nausea, vomiting, or diarrhea. GENITOURINARY: Denies dysuria or hematuria. SKIN: Denies rash or itching. MUSCULOSKELETAL: Denies back pain, joint pain, or myalgia. NEUROLOGIC: Denies headache, numbness, or weakness. Pertinent positives per HPI. [facility] Past Medical History Medical History Anxiety Asthma History of narcotic addiction in treatment now Migraine Surgical History Surgical History History of placement of ear tubes History of tubal ligation Hx of myringotomy Hx of tonsillectomy [place] teeth extracted Family History Family History Grandparent Breast cancer Mother Multiple sclerosis Parkinsonism Social History Social History Smoking packs per day: 1 Smoking cigarettes per day: 20.0 Years smoked: 15 Smoking pack-years: 15.00 Smoking status: Current every day smoker Tobacco type: e-cigarettes/vaping Smoking end date: 02/04/19 Additional smoking assessment comments: stop smoking cigarettes jan Alcohol intake: never Substance use: former Substance use type: amphetamines and opiates Last use: 2 years in august Living arrangements: with family Gender identity (if verbalized by the patient): Female Sexual Orientation (if Verbalized by the Patient): Straight or Heterosexual Spiritual care concerns: No Comments At the time of my signature, I reviewed and agree with the nursing past medical, surgical, social, and family history. There is no relevant family history pertinent to
[2022-11-24 11:46] VITALS: BP 116/66; PULSE 93; RESP 20; TEMP 36.9; O2SAT 99
== END 2022-11-24 12:33 | disposition home or self-care (01) ==
PROVIDERS: Emergency Provider Nurse Practitioner
DX: H10.31 Unspecified acute conjunctivitis, right eye (principal); Z20.822 Contact with and (suspected) exposure to COVID-19; F17.290 Nicotine dependence, other tobacco product, uncomplicated
CPT/HCPCS: 87081; 87426; 87880; 99213; C9803; G0463

== ENCOUNTER 2023-01-04 14:11 | Emergency (ER) | payer OTHER, SELFPAY ==
[2023-01-04 14:19] VITALS: BP 107/66; PULSE 86; RESP 16; TEMP 36.6; O2SAT 100
--- NOTE | 2023-01-04 14:35 | ED.EAR ---
HPI - Ear Problem General Chief complaint: Ear Stated complaint: Cough/Left Ear Pain Time Seen by Provider: 01/04/23 14:35 Source: patient Mode of arrival: ambulatory Limitations: no limitations History of Present Illness HPI Narrative: 32-year-old female presents with complaint of nasal congestion, dry cough, postnasal drainage for 3-4 days. Reports left ear pain starting yesterday. Afebrile. Taking Zyrtec daily. No other complaints today. All systems reviewed and negative except as noted above. Related Data Home Medications Medication Instructions Recorded Confirmed fluticasone 250 mcg-salmeterol 50 50 inh inhalation DAILY 08/12/20 01/04/23 mcg/dose blistr powdr for inhalation (Wixela Inhub) albuterol sulfate 90 mcg/actuation 2 inh inhalation Q2H PRN Shortness 11/27/20 01/04/23 aerosol inhaler Of Breath vilazodone 10 mg tablet 10 mg PO DIRECTED 11/24/22 01/04/23 Diamox 1,500 mg PO DIRECTED 01/04/23 01/04/23 Allergies Allergy/AdvReac Type Severity Reaction Status Date / Time amoxicillin Allergy THROAT Verified 01/04/23 14:39 SWELLING cefadroxil [From Duricef] Allergy throat Verified 01/04/23 14:39 swelling clavulanic acid Allergy Swelling Verified 01/04/23 14:39 [From Augmentin] Penicillins Allergy THROAT Verified 01/04/23 14:39 SWELLING Review of Systems Review of Systems: CONSTITUTIONAL: Denies fever, chills, or sweats. EYES: Denies visual changes, redness, or discharge. ENT: Reports rhinorrhea, congestion. Denies sore throat, or otalgia. CARDIOVASCULAR: Denies chest pain, palpitations, or edema. RESPIRATORY: Reports cough. Denies dyspnea. GASTROINTESTINAL: Denies abdominal pain, nausea, vomiting, or diarrhea. GENITOURINARY: Denies dysuria or hematuria. SKIN: Denies rash or itching. MUSCULOSKELETAL: Denies back pain, joint pain, or myalgia. NEUROLOGIC: Denies headache, numbness, or weakness. PSYCHIATRIC: Denies anxiety or depression. All other systems reviewed are negative, except as documented in HPI. [facility] Past Medical History Medical History Anxiety Asthma History of narcotic addiction in treatment now Migraine Surgical History Surgical History History of placement of ear tubes History of tubal ligation Hx of myringotomy Hx of tonsillectomy [place] teeth extracted Family History Family History Grandparent Breast cancer Mother Multiple sclerosis Parkinsonism Social History Social History Smoking packs per day: 1 Smoking cigarettes per day: 20.0 Years smoked: 15 Smoking pack-years: 15.00 Smoking status: Current every day smoker Tobacco type: e-cigarettes/vaping Smoking end date: 02/04/19 Additional smoking assessment comments: stop smoking cigarettes jan Alcohol intake: never Substance use: former Substance use type: amphetamines and opiates Last use: 2 years in august Living arrangements: with family Gender identity (if verbalized by the patient): Female Sexual Orientation (if Verbalized by the Patient): Straight or Heterosexual Spiritual care concerns: No Comments At time of signature, agree with nursing past medical, surgical, social and family history. There is no relevant family history pertinent to the presenting complaint. Exam Narrative: GENERAL: This is a well-nourished, well-developed patient, in no apparent distress. HEAD: normocephalic, atraumatic. EYES: PERRL. Sclera clear/white. Vision is grossly intact. EARS: External ears normal, auditory canals clear and without drainage, fluid to left TM with mild erythema, bulging. No perforation bilaterally. Right TM normal. NOSE: External nose normal with clear nasal drainage, moderate congestion, mild erythema and swel
== END 2023-01-04 14:53 | disposition home or self-care (01) ==
PROVIDERS: Emergency Provider Nurse Practitioner Family
DX: J01.00 Acute maxillary sinusitis, unspecified (principal); H65.02 Acute serous otitis media, left ear; F17.290 Nicotine dependence, other tobacco product, uncomplicated; J45.909 Unspecified asthma, uncomplicated
CPT/HCPCS: 99213; G0463

== ENCOUNTER 2023-03-08 17:43 | Emergency (ER) | payer OTHER, SELFPAY ==
[2023-03-08 18:00] VITALS: BP 118/70; PULSE 81; RESP 16; TEMP 37; O2SAT 100
--- NOTE | 2023-03-08 18:33 | ED.URI ---
HPI - URI/Sore Throat General Chief Complaint: Upper Respiratory Infection Stated Complaint: heavy chest/throat History of Present Illness HPI Narrative: 32-year-old female presented for complaint of bilateral ear pressure and popping, cough, sore throat. Onset last night. Also reports a history of asthma and says she feels she cannot take a full deep breath. Has been using nebulizers at home and using Advair as directed. She reports the disposable vapes that she uses have affected her asthma recently. Denies wheezing, nausea, vomiting, diarrhea, fevers or chills. Denies sick contacts. Related Data Home Medications Medication Instructions Recorded Confirmed fluticasone 250 mcg-salmeterol 50 50 inh inhalation DAILY 08/12/20 03/08/23 mcg/dose blistr powdr for inhalation (Wixela Inhub) albuterol sulfate 90 mcg/actuation 2 inh inhalation Q2H PRN Shortness 11/27/20 03/08/23 aerosol inhaler Of Breath vilazodone 10 mg tablet 10 mg PO DAILY 11/24/22 03/08/23 acetazolamide 500 mg 500 mg PO DIRECTED 03/08/23 03/08/23 capsule,extended release Allergies Allergy/AdvReac Type Severity Reaction Status Date / Time amoxicillin Allergy THROAT Verified 03/08/23 17:59 SWELLING cefadroxil [From Duricef] Allergy throat Verified 03/08/23 17:59 swelling clavulanic acid Allergy Swelling Verified 03/08/23 17:59 [From Augmentin] Penicillins Allergy THROAT Verified 03/08/23 17:59 SWELLING Review of Systems Review of Systems: CONSTITUTIONAL: Denies body aches, fever, chills, or sweats. EYES: Denies visual changes, redness, or discharge. ENT: reports rhinorrhea, congestion, sore throat, or otalgia. CARDIOVASCULAR: Denies chest pain, palpitations, or edema. RESPIRATORY: Reports cough Denies dyspnea or wheezing GASTROINTESTINAL: Denies abdominal pain, nausea, vomiting, or diarrhea. SKIN: Denies rash, itching, or wounds. MUSCULOSKELETAL: Denies back pain, joint pain, or myalgia. NEUROLOGIC: Denies headache PMFSH Past Medical History Medical History Anxiety Asthma History of narcotic addiction in treatment now Migraine Surgical History Surgical History History of placement of ear tubes History of tubal ligation Hx of myringotomy Hx of tonsillectomy [place] teeth extracted Family History Family History Grandparent Breast cancer Mother Multiple sclerosis Parkinsonism Social History Social History Smoking packs per day: 1 Smoking cigarettes per day: 20.0 Years smoked: 15 Smoking pack-years: 15.00 Smoking status: Current every day smoker Tobacco type: e-cigarettes/vaping Smoking end date: 02/04/19 Additional smoking assessment comments: stop smoking cigarettes jan Alcohol intake: never Substance use: former Substance use type: amphetamines and opiates Last use: 2 years in august Living arrangements: with family Gender identity (if verbalized by the patient): Female Sexual Orientation (if Verbalized by the Patient): Straight or Heterosexual Spiritual care concerns: No Exam Narrative: GENERAL: mildly Ill-appearing, no acute distress. EYES: conjunctivae clear ENT: Mucous membranes moist. Left TM pearly aiken with normal light reflex; Right TM erythematous, bulging and intact, clear effusion; canal not erythematous, No drainage no tragal tenderness. Oropharynx erythematous without lesions. Tonsils absent No drooling, no hoarseness, no trismus, uvula midline. No tripod positioning, hot potato voice, or soft palate swelling. NECK: Supple. No lymphadenopathy CHEST: Clear to auscultation, breath sounds equal. No respiratory distress, speaks in full sentences. HEART: Regular rate and rhythm. No murmur heard. SKIN: Warm, dry, no
== END 2023-03-08 18:46 | disposition home or self-care (01) ==
PROVIDERS: Emergency Provider Nurse Practitioner Family
DX: H66.91 Otitis media, unspecified, right ear (principal); J40 Bronchitis, not specified as acute or chronic; F17.290 Nicotine dependence, other tobacco product, uncomplicated; J45.909 Unspecified asthma, uncomplicated; F41.9 Anxiety disorder, unspecified
CPT/HCPCS: 87081; 87880; 99213; G0463

== ENCOUNTER 2023-07-02 15:10 | Emergency (ER) | payer OTHER, SELFPAY ==
[2023-07-02 15:19] VITALS: BP 133/83; PULSE 86; RESP 18; TEMP 37.1; O2SAT 100
--- NOTE | 2023-07-02 15:21 | ED.GENADULT ---
HPI - General Adult General Chief complaint: Environmental Exposure Stated complaint: Rash/Sore Throat Time Seen by Provider: 07/02/23 15:40 Mode of arrival: ambulatory Limitations: no limitations History of Present Illness HPI narrative: 32-year-old female presents with concern for rash and sore throat. Reports yesterday she was exposed to a cockroach fall [place] in her home. Reports she was exposed for approximately 1 hour. She reports she developed a rash yesterday. She reports she has not showered since she was exposed. She reports yesterday she did not have any lip swelling, tongue swelling, shortness of breath. She reports she wants to come in to document the incident. She has not used any Benadryl. She reports she takes Zyrtec on a daily basis. MD complaint: Rash Related Data Home Medications Medication Instructions Recorded Confirmed fluticasone 250 mcg-salmeterol 50 50 inh inhalation DAILY 08/12/20 03/08/23 mcg/dose blistr powdr for inhalation (Wixela Inhub) vilazodone 10 mg tablet 10 mg PO DAILY 11/24/22 03/08/23 acetazolamide 500 mg 500 mg PO DIRECTED 03/08/23 03/08/23 capsule,extended release fluticasone 100 mcg-salmeterol 50 inhalation 07/02/23 mcg/dose blistr powdr for inhalation (Advair Diskus) lisdexamfetamine 30 mg capsule mg 07/02/23 (Vyvanse) Allergies Allergy/AdvReac Type Severity Reaction Status Date / Time amoxicillin Allergy THROAT Verified 07/02/23 15:23 SWELLING cefadroxil [From Duricef] Allergy throat Verified 07/02/23 15:23 swelling clavulanic acid Allergy Swelling Verified 07/02/23 15:23 [From Augmentin] Penicillins Allergy THROAT Verified 07/02/23 15:23 SWELLING Review of Systems Review of Systems: CONSTITUTIONAL: Denies malaise, chills, sweats, or fever. EYES: Denies visual changes, redness, or discharge. ENT: Denies rhinorrhea, congestion, sinus pain, otalgia. Reports sore throat. Denies swollen lips, swollen tongue CARDIOVASCULAR: Denies chest pain, palpitations, or edema. RESPIRATORY: Denies cough or dyspnea. GASTROINTESTINAL: Denies abdominal pain, nausea, vomiting, diarrhea, bloody, or mucous stools. GENITOURINARY: Denies dysuria or hematuria. SKIN: Reports rash on her left shoulder MUSCULOSKELETAL: Denies back pain, joint pain, or myalgia. NEUROLOGIC: Denies numbness, weakness, or headache. PSYCHIATRIC: Denies anxiety or depression. All systems reviewed & are unremarkable except as noted in HPI and below PMFSH Past Medical History Medical History Anxiety Asthma History of narcotic addiction in treatment now Migraine Surgical History Surgical History History of placement of ear tubes History of tubal ligation Hx of myringotomy Hx of tonsillectomy [place] teeth extracted Family History Family History Grandparent Breast cancer Mother Multiple sclerosis Parkinsonism Social History Social History Smoking packs per day: 1 Smoking cigarettes per day: 20.0 Years smoked: 15 Smoking pack-years: 15.00 Smoking status: Current every day smoker Tobacco type: e-cigarettes/vaping Smoking end date: 02/04/19 Additional smoking assessment comments: stop smoking cigarettes jan Alcohol intake: never Substance use: former Substance use type: amphetamines and opiates Last use: 2 years in august Living arrangements: with family Gender identity (if verbalized by the patient): Female Sexual Orientation (if Verbalized by the Patient): Straight or Heterosexual Spiritual care concerns: No Comments At time of signature, agree with nursing past medical, surgical, social and family history. There is no relevant family history pertinent to the presenting complaint Exam Narrative:
[2023-07-02 15:25] VITALS: BP 133/83; PULSE 86; RESP 18; TEMP 37.1; O2SAT 100
== END 2023-07-02 15:57 | disposition home or self-care (01) ==
PROVIDERS: Emergency Provider Nurse Practitioner
DX: L25.9 Unspecified contact dermatitis, unspecified cause (principal); F17.290 Nicotine dependence, other tobacco product, uncomplicated; J45.909 Unspecified asthma, uncomplicated
CPT/HCPCS: 99211; G0463

== ENCOUNTER 2023-08-05 13:43 | Emergency (ER) | payer OTHER, SELFPAY ==
--- NOTE | ~2023-08-05 | XR_ITS ---
EXAMINATION: XR chest 2V DATE: 08/05/2023 14:32 INDICATION: Cough and right-sided wheezing on expiration TECHNIQUE: PA and lateral views of the chest were obtained. COMPARISON: Chest radiograph dated 12/07/2018 FINDINGS: The lungs remain clear with no focal airspace opacities, pulmonary edema, pleural effusion or pneumot horax. The cardiomediastinal silhouette is normal. Visualized bones and soft tissues are unremarkable . IMPRESSION: 1. No acute cardiopulmonary disease. Reviewed, dictated and finalized at location A.
[2023-08-05 13:58] VITALS: BP 124/80; PULSE 83; RESP 18; TEMP 36.8; O2SAT 99
--- NOTE | 2023-08-05 14:03 | ED.GENADULT ---
HPI - General Adult General Chief complaint: Upper Respiratory Infection Stated complaint: Headache/Back Pain Time Seen by Provider: 08/05/23 14:03 Source: patient, RN notes reviewed and old records reviewed Mode of arrival: ambulatory Limitations: no limitations History of Present Illness HPI narrative: 32-year-old female to [facility] with complaint of generalized body aches, headache, nausea, chest congestion, bilateral ear discomfort for 4 days. patient denies shortness of breath, pain, fever. Patient able to tolerate fluids by mouth. Related Data Home Medications Medication Instructions Recorded Confirmed vilazodone 10 mg tablet 10 mg PO DAILY 11/24/22 08/05/23 lisdexamfetamine 30 mg capsule 30 mg PO DAILY 07/02/23 08/05/23 (Vyvanse) fluticasone 100 mcg-salmeterol 50 inh inhalation DAILY 08/05/23 mcg/dose blistr powdr for inhalation (Advair Diskus) Allergies Allergy/AdvReac Type Severity Reaction Status Date / Time amoxicillin Allergy THROAT Verified 08/05/23 14:07 SWELLING cefadroxil [From Duricef] Allergy throat Verified 08/05/23 14:07 swelling clavulanic acid Allergy Swelling Verified 08/05/23 14:07 [From Augmentin] Penicillins Allergy THROAT Verified 08/05/23 14:07 SWELLING Review of Systems Review of Systems: All systems reviewed & are unremarkable except as noted in HPI and below Constitutional: Constitutional: Reports as per HPI, Reports body ache(s) and Reports headache(s) Eyes: Eyes: Reports no additional eye complaints ENT: Reports otalgia ( bilateral) Cardiovascular: Cardiovascular: Reports no additional cardiovascular complaints, Denies chest pain and Denies dyspnea Respiratory: Respiratory: Reports no additional respiratory complaints, Reports cough and Denies dyspnea Gastrointestinal: Gastrointestinal: Reports nausea Musculoskeletal: Musculoskeletal: Reports as per HPI and Reports myalgias Neurologic: Reports system reviewed and no additional complaints, except as documented Psychiatric: Psychiatric: Reports no additional psychiatric complaints PMFSH Past Medical History Medical History Anxiety Asthma History of narcotic addiction in treatment now Migraine Surgical History Surgical History History of placement of ear tubes History of tubal ligation Hx of myringotomy Hx of tonsillectomy [place] teeth extracted Family History Family History Grandparent Breast cancer Mother Multiple sclerosis Parkinsonism Social History Social History Smoking packs per day: 1 Smoking cigarettes per day: 20.0 Years smoked: 15 Smoking pack-years: 15.00 Smoking status: Current every day smoker Tobacco type: e-cigarettes/vaping Smoking end date: 02/04/19 Additional smoking assessment comments: stop smoking cigarettes jan Alcohol intake: never Substance use: former Substance use type: amphetamines and opiates Last use: 2 years in august Living arrangements: with family Gender identity (if verbalized by the patient): Female Sexual Orientation (if Verbalized by the Patient): Straight or Heterosexual Spiritual care concerns: No Comments At the time of my signature, I reviewed and agree with the nursing past medical, surgical, social, and family history. There is no relevant family history pertinent to the patient complaint. Exam Const: General: cooperative, comfortable, no acute distress, alert, ill appearing, uncomfortable and well nourished Nutritional Appearance: well nourished Orientation/consciousness: patient oriented x3 Limitations: no limitations HENMT: Head: normal to inspection Ears: external ears normal Face/Nose/Sinus: Normal external nose present, Normal nares p
== END 2023-08-05 14:59 | disposition home or self-care (01) ==
PROVIDERS: Emergency Provider Nurse Practitioner Family
DX: J10.1 Influenza due to other identified influenza virus with other respiratory manifestations (principal); Z20.822 Contact with and (suspected) exposure to COVID-19; F17.290 Nicotine dependence, other tobacco product, uncomplicated; J45.909 Unspecified asthma, uncomplicated
CPT/HCPCS: 71046; 87081; 87426; 87804; 87880; 99213; G0463

== ENCOUNTER 2023-12-26 12:57 | Emergency (ER) | payer OTHER, SELFPAY ==
[2023-12-26 13:20] VITALS: BP 113/72; PULSE 87; RESP 20; TEMP 37.2; O2SAT 98
--- NOTE | 2023-12-26 13:33 | ED.URI ---
HPI - URI/Sore Throat General Chief Complaint: Upper Respiratory Infection Stated Complaint: strep test History of Present Illness HPI Narrative: PATIENT PRESENTS WITH A SORE THROAT. NO FEVER NO COUGH NO RUNNY NOSE NO TROUBLE SWALLOWING NO DROOLING. Related Data Allergies Allergy/AdvReac Type Severity Reaction Status Date / Time amoxicillin Allergy THROAT Verified 11/29/23 14:53 SWELLING cefadroxil [From Duricef] Allergy throat Verified 11/29/23 14:53 swelling clavulanic acid Allergy Swelling Verified 11/29/23 14:53 [From Augmentin] Penicillins Allergy THROAT Verified 11/29/23 14:53 SWELLING Review of Systems Review of Systems: CONSTITUTIONAL: DENIES CHILLS, OR SWEATS. REPORTS FEVER AND GENERALIZED BODY ACHES EYES: DENIES VISUAL CHANGES, REDNESS, OR DISCHARGE. ENT: DENIES OTALGIA. REPORTS NASAL CONGESTION RUNNY NOSE AND SORE THROAT CARDIOVASCULAR: DENIES CHEST PAIN, PALPITATIONS, OR EDEMA. RESPIRATORY: DENIES DYSPNEA. REPORTS OCCASIONAL COUGH GASTROINTESTINAL: DENIES ABDOMINAL PAIN, NAUSEA, VOMITING, OR DIARRHEA. GENITOURINARY: DENIES DYSURIA OR HEMATURIA. SKIN: DENIES RASH OR ITCHING. MUSCULOSKELETAL: DENIES BACK PAIN, JOINT PAIN, OR MYALGIA. REPORTS GENERALIZED BODY ACHES NEUROLOGIC: DENIES HEADACHE, NUMBNESS, OR WEAKNESS. PSYCHIATRIC: DENIES ANXIETY OR DEPRESSION. [facility] Past Medical History Medical History Anxiety Asthma History of narcotic addiction in treatment now Migraine Surgical History Surgical History History of placement of ear tubes History of tubal ligation Hx of myringotomy Hx of tonsillectomy [place] teeth extracted Family History Family History Grandparent Breast cancer Mother Multiple sclerosis Parkinsonism Social History Social History (Updated 11/29/23 @ 14:55 by Veronica Catherine CMA) Smoking packs per day: 1 Smoking cigarettes per day: 20.0 Years smoked: 15 Smoking pack-years: 15.00 Smoking status: Current every day smoker Tobacco type: e-cigarettes/vaping Smoking end date: 02/04/19 Additional smoking assessment comments: stop smoking cigarettes jan Alcohol intake: never Substance use: current Substance use type: marijuana Last use: 2 years in august Living arrangements: with family Gender identity (if verbalized by the patient): Female Sexual Orientation (if Verbalized by the Patient): Straight or Heterosexual Spiritual care concerns: No Comments AT TIME OF SIGNATURE, AGREE WITH NURSING PAST MEDICAL, SURGICAL, SOCIAL AND FAMILY HISTORY. THERE IS NO RELEVANT FAMILY HISTORY PERTINENT TO THE PRESENTING COMPLAINT Exam Narrative: THE PATIENT IS A WELL-DEVELOPED, WELL-NOURISHED IN NO ACUTE DISTRESS. SKIN: SKIN IS WARM AND DRY WITHOUT ERYTHEMA, SWELLING OR EXUDATE. THERE IS GOOD TURGOR. NO TENTING. HEAD: ATRAUMATIC. NORMOCEPHALIC. NO TEMPORAL OR SCALP TENDERNESS. EYES: MOIST AND BRIGHT. SCLERA AND CONJUNCTIVAE NORMAL. NO DISCHARGE. PERRLA. EXTRAOCULAR MOTIONS INTACT. GROSS VISUAL ACUITY INTACT. EARS: PINNA IS NORMAL SHAPE AND CONTOUR. CLEAR EXTERNAL AUDITORY CANALS. TM PEARLY LEBLANC WITH GOOD CONE OF LIGHT, NO ERYTHEMA OR SUPPURATION. BILATERAL CERUMEN NOTED NO GROSS HEARING DEFICIT. NOSE: PINK, MOIST MUCOSA WITH GOOD AIR MOVEMENT. CLEAR RHINORRHEA WITHOUT NASAL FLARING. SEPTUM MIDLINE. MOUTH: MOIST MUCOUS MEMBRANES. THROAT; MILD ERYTHEMA NOTED TO POSTERIOR OROPHARYNX WITH MODERATE POSTNASAL DRAINAGE. WITHOUT EXUDATE OR ULCERATION.. UVULA MIDLINE. NORMAL MOVEMENT OF SOFT PALATE. NECK: SUPPLE AND NONTENDER WITH FULL RANGE OF MOTION WITHOUT DISCOMFORT. NO MENINGEAL SIGNS. LUNGS: EQUAL AND BILATERAL BREATH SOUNDS WITHOUT WHEEZES, RALES OR RHONCHI. CHEST: THE CHEST WALL IS WITHOUT RETRACTIONS OR USE OF ACCESSORY MUSCLES. HEART: HAS A REGULAR RATE AND RHYTHM WITH
[2023-12-26 13:41] LABS: EDSTREPNEGPOS1 Positive
== END 2023-12-26 13:52 | disposition home or self-care (01) ==
PROVIDERS: Emergency Provider Nurse Practitioner Family
DX: J02.9 Acute pharyngitis, unspecified (principal); F17.290 Nicotine dependence, other tobacco product, uncomplicated; F12.90 Cannabis use, unspecified, uncomplicated; J45.909 Unspecified asthma, uncomplicated
CPT/HCPCS: 87880; 99213; G0463

== ENCOUNTER 2024-08-14 13:41 | Emergency (ER) | payer MEDICAID, SELFPAY ==
[2024-08-14 13:50] VITALS: BP 144/91; PULSE 124; RESP 20; TEMP 36.6; O2SAT 100
--- NOTE | 2024-08-14 14:15 | ED_ITS ---
HPI - Eye Problem General Chief complaint: Eye Problems Stated complaint: Foreign Body in Eye's Time Seen by Provider: 08/14/24 14:00 Source: patient Mode of arrival: ambulatory Limitations: no limitations History of Present Illness HPI Narrative: 33 yo F presents with pain and light sensitivity to both eyes. Dropped a candle and pieces of glass came up towards pt's face. i feel glass under R upper eyelid . c/o blurry vision. arrived wearing sunglasses. All systems reviewed and negative except as noted above. Related Data Home Medications ?Medication ?Instructions ?Recorded ?Confirmed ?Last Taken ?Type albuterol sulfate 2.5 mg/3 mL mg 08/14/24 Unknown History (0.083 %) solution for nebulization albuterol sulfate 90 mcg/actuation inhalation 08/14/24 Unknown History aerosol inhaler lisdexamfetamine 40 mg capsule mg 08/14/24 Unknown History (Vyvanse) vilazodone 40 mg tablet mg 08/14/24 Unknown History Allergies Allergy/AdvReac Type Severity Reaction Status Date / Time amoxicillin Allergy THROAT Verified 08/14/24 13:57 SWELLING cefadroxil (From Duricef) Allergy throat Verified 08/14/24 13:57 swelling clavulanic acid (From Allergy Swelling Verified 08/14/24 13:57 Augmentin) Penicillins Allergy THROAT Verified 08/14/24 13:57 SWELLING Review of Systems Review of Systems: CONSTITUTIONAL: Denies fever, chills, or sweats. EYES: Denies visual changes, redness, or discharge.Reports pain, photophobia to bilateral eyes ENT: Denies rhinorrhea, congestion, sore throat, or otalgia. CARDIOVASCULAR: Denies chest pain, palpitations, or edema. RESPIRATORY: Denies cough or dyspnea. GASTROINTESTINAL: Denies abdominal pain, nausea, vomiting, or diarrhea. GENITOURINARY: Denies dysuria or hematuria. SKIN: Denies rash or itching. MUSCULOSKELETAL: Denies back pain, joint pain, or myalgia. NEUROLOGIC: Denies headache, numbness, or weakness. PSYCHIATRIC: Denies anxiety or depression. All other systems reviewed are negative, except as documented in HPI. 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 Migraine Surgical History Surgical History History of placement of ear tubes History of tubal ligation Hx of myringotomy Hx of tonsillectomy [place] teeth extracted Family History Family History Grandparent Breast cancer Mother Multiple sclerosis Parkinsonism Social History Social History (Updated 11/29/23 @ 14:55 by Veronica Catherine [facility]) Smoking packs per day: 1 Smoking cigarettes per day: 20.0 Years smoked: 15 Smoking pack-years: 15.00 Smoking status: Current every day smoker Tobacco type: e-cigarettes/vaping Smoking end date: 02/04/19 Additional smoking assessment comments: stop smoking cigarettes jan Alcohol intake: never Substance use: current Substance use type: marijuana Last use: 2 years in august Living arrangements: with family Gender identity (if verbalized by the patient): Female Sexual Orientation (if Verbalized by the Patient): Straight or Heterosexual Spiritual care concerns: No Comments At time of signature, agree with nursing past medical, surgical, social and family history. There is no relevant family history pertinent to the presenting complaint. Exam Narrative: GENERAL: This is a well-nourished, well-developed patient, in no apparent distress. HEAD: normocephalic, atraumatic. EYES: PERRL. Sclera clear/white. Topical anesthetic was instilled with good anesthesia using 1gtt of opth anesthetic agent (tetracaine). Fluorescein stain of the both eyes was performed. corneal abrasion noted to right eye, no definite foreign body. Upper lid was everted and no FB or lesions were noted. Normal saline irrigation eye solution was performed and the patient tolerated the procedure well, no adverse reaction or complications. EARS: External ears normal NOSE: External nose normal NECK: Neck supple, non-tender without lymphadenopathy, masses or thyromegaly. CARDIOVASCULAR: Regular rate and rhythm without murmurs, gallops, or rubs. RESPIRATORY: Clear to auscultation. Breath sounds equal bilaterally. No wheezes, rales, or rhonchi. SKIN: warm, Dry, intact with no suspicious lesions or rash, good texture and turgor. NEURO: awake, alert, and oriented to person, place and time. There were no obvious focal neurologic abnormalities. EXTREMITIES: No joint tenderness, effusion, or edema noted. Course Course Level of Care: Express Care Visit Vital Signs Vital signs: Vital Signs Temperature 36.6 C 08/14/24 13:50 Pulse Rate 124 H 08/14/24 13:50 Respiratory Rate 20 08/14/24 13:50 Blood Pressure 144/91 H 08/14/24 13:50 Pulse Oximetry 100 08/14/24 13:50 Oxygen Delivery Room Air 08/14/24 13:50 Temperature 36.6 C 08/14/24 13:50 Pulse Rate 124 H 08/14/24 13:50 Respiratory Rate 20 08/14/24 13:50 Blood Pressure 144/91 H 08/14/24 13:50 Pulse Oximetry 100 08/14/24 13:50 Oxygen Delivery Room Air 08/14/24 13:50 Reviewed MDM - Eye Problem MDM Narrative Medical decision making narrative: corneal abrasion noted to right eye. No definite foreign body noted. Patient difficult to evaluate, moving around during exam. Reports pain when moving right eyelids. She feels glass under right eyelids .called [facility] and scheduled an appointment for patient to be seen today at 3:00 p.m.. Patient has been seen here in the past for cataract surgery. Please be advised this is a medical document. It is intended for cpti-[id number] communication. It is written in medical language and may contain unfamiliar abbreviations or verbiage. Medical documents are intended to carry relevant information, facts as evident, and the clinical opinion of the practitioner at the time of the encounter. This report may have been done utilizing a voice recognition system. Attempts have been made to correct errors. However, there may be uncorrected grammatical, spelling, and recognition errors present. The file time of this note does not necessarily represent the time of service. Discharge Plan Discharge Clinical Impression: Foreign body of right eye Qualifiers: Encounter type: initial encounter Qualified Code(s): T15.91XA - Foreign body on external eye, part unspecified, right eye, initial encounter Corneal abrasion, right Qualifiers: Encounter type: initial encounter Qualified Code(s): S05.01XA - Injury of conjunctiva and corneal abrasion without foreign body, right eye, initial encounter Patient Disposition: Home Condition: Stable Additional Instructions: Go directly to [facility] [place], [place] [address] [facility], [place] [address] Your appointment is a 3:05p. Patient Language: Ugandan Prescriptions: No Action albuterol sulfate 2.5 mg /3 mL (0.083 %) solution for nebulization albuterol sulfate 90 mcg/actuation HFA aerosol inhaler INHALATION lisdexamfetamine [Vyvanse] 40 mg capsule vilazodone 40 mg tablet Follow-up/Referrals: PHYSICIAN NOT ON STAFF,NONSTAFF [Primary Care Provider] - Time of Disposition: 14:23
[2024-08-14 14:30] VITALS: BP 130/94
--- OUTSIDE RECORDS SUMMARY | 2024-08-14 15:06 | XMS_ITS | Clinical Summary ---
Author Organization [facility] Address [address] [address] Care Team Providers Care Roofer Gypsum Name Role Phone Ebony Gunter MD Unavailable [phone] Source Comments [facility],non-owned Affiliates and Associated Physician Practices is amultiple site organization consisting of ambulatory clinics and hospital sitesin [place], [place], [place] and [place]. This disclosure is being madepursuant to the Care Everywhere program and may not contain all information available regarding this patient. Last updated 18.[facility] Allergies Active Allergy Reactions Criticality Noted Date Comments Amoxicillin 04/29/2016 Augmentin Swelling 07/20/2016 Cefadroxil Swelling 07/20/2016 Medications * This document contains information received from the source organization and may not represent a complete record from that organization. * Be aware that medications may not be up to date on this document. Alwaysverify current medications with the patient. Vit-Fe Fumarate-FA (BL VITAMINS PO) Take 1 Tab by mouth once daily Active VENTOLIN HFA 108 (90 BASE) MCG/ACT inhalerIndicati ons:Asthma Inhale 1 puff by mouth every 6 hours as needed for Shortness of Breath Reasons: Asthma 1 Inhaler 8 Active Additional Information Patient not taking.Reported on 10/27/2018 Vit-Fe Fumarate-FA ( VITAMIN) 28-0.8 MG tablet Take 1 tablet by mouth once daily 60 tablet 3 9 Active Active Problems Patient Care Coordination No te Formatting of this note migh t be different from the original. [facility] 12/2018 Problem Noted Date Diagnosed Date Supervision of high risk in second formerly [facility] 10/09/2018 Dysuria 10/06/2018 History of drug abuse 09/21/2016 Hepatitis C antibody test positive 09/21/2016 Herpes infection 09/21/2016 Suspected problem with growth not found Low grade squamous intraepit h lesion on cytologic smear cervix (lgsil) 09/21/2016 Asthma affecting , antepartum 7 Suspected abnormality affecting management of mother, antepartum Family history of congenital heart defect Resolved Problems Problem Noted Date Diagnosed Date Resolved Date Supervision of normal 09/21/2016 11/06/2016 Hydronephrosis of fetus on p renatal ultrasound 09/21/2016 11/06/2016 Tobacco smoking affecting pr egnancy in third trimester 09/21/2016 11/06/2016 Immunizations Immunization Administration Dates Next Due TDAP (7yrs+) 03/20/2020,09/04/2016 Family History Medical History Relation Name Comments Cancer - Pancreatic Maternal Grandmother Lupus Maternal Grandmother Multiple Sclerosis Mother Parkinson's Disease Paternal Grandmother Congenital Heart defect Son VSD Other Son clubfoot Relation Name Status Comments Maternal Grandmother Mother Paternal Grandmother Son Social History Tobacco Use Types Packs/Day Years Used Date Smoking Tobacco: Every Day Cigarettes Tobacco Cessation:Ready to Q uit: No; Counseling Given: Yes Alcohol Use Standard Drinks/Week Comments No 0 (1 standard drink = 0.6 oz pur e alcohol) Comments No Sex and Gender Information Value Date Recorded Sex Assigned at Female 07/13/2021 12:29 PM CDT 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2 10/27/2018 11:25 AM CDT Plan of Treatment Health Maintenance Due Date Last Done Comments HEPATITIS B VACCINE (1 of 3 - 19+ 3-dose series) 2009 COVID-19 VACCINE ( - 2023-2 5 season) 2024 DEPRESSION SCREENING 05/03/2024 INFLUENZA VACCINE (Season Ended) 2025 DTAP/TDAP/TD VACCINES (3 - T d or Tdap) 03/20/2030 03/20/2020, 09/04/2016 ZOSTER VACCINE (1 of 2) 2040 HIV SCREENING Completed 09/04/2016 HEPATITIS C SCREENING Completed 09/21/2016 , 09/18/2016 HIB VACCINE Aged Out No longer eligi ble based on patient's age to complete this topic HPV VACCINE Aged Out No longer eligi ble based on patient's age to complete this topic MENINGOCOCCAL (Group B) VACCINE SHARED DECISION-MAKING Aged Out No longer eligible based on patient's age to complete this topic MENINGOCOCCAL GROUPS A/C/Y/W VACCINE Aged Out No longer eligible b ased on patient's age to complete this topic PNEUMOCOCCAL VACCINE Aged Out No long er eligible based on patient's age to complete this topic Procedures Procedure Name Priority Date/Time Associated Diagnosis Comments HEPATITIS C RNA QUANTITATIVE STAT 09/21/2016 9:59 PM CDT HIV-1 HIV-2 ANTIGEN/ANTIBODY W RFLX Routine 09/04/2016 2:26 PM CDT Supervision of high risk in third trimester from Last 3 Months or Most Recently Relevant to Health Maintenance Results * HEPATITIS C RNA QUANTITATIVE PCR (09/21/2016 9:59 PM CDT) Hepatitis C Virus Quantitation HCV Not Detected IU/mL 09/23/2016 6:10 PM CDT [facility] ([facility]) Test Information Comment 09/24/19 17 6:10 PM CDT [facility] ([facility]) Comment:The quantitative ran ge of this assay is 15 IU/mL to 100 million IU/mL. Blood BLOOD SPECIMEN / Unknown Venipuncture / Unknown 09/21/2016 9:59 PM CDT 09/21/2016 10:08 PM CDT Narrative [facility] ([facility]) - 09/23/2016 6:10 PM CDT Performed at: [facility] [id number] Tobacco Hanger: Robert Peraza MD, Phone: [phone] us Aimee Mullen MD LAB - CHEMISTRY ORDERABLES F inal Result [facility] ([facility]) [address] [place] [address] * HIV-1 HIV-2 ANTIGEN/ANTIBODY W RFLX (PO) (09/04/2016 2:26 PM CDT) [facility] Signature HIV Screen 4th Generation w Reflex Non Reactive Non Reactive [facility] ACCOUNT BILL Blood BLOOD SPECIMEN / Unknown 09/04/2016 2:26 PM CDT 09/04/2016 Narrative Resulting Agency Comment [facility] [address] [phone] us Ebony Gunter MD LAB - SEROLOGY ORDERABLES Fi nal Result [facility] ACCOUNT BILL [address] [place] [address] from Last 3 Months or Most Recently Relevant to Health Maintenance Insurance [facility] [place] [address] Member Subscriber Plan / Payer (Ef fective for All Dates) Name:Yanci Charles Relation to Subscriber:Self Name:YARITZAESTUARDOELEAZAR MCBRIDEESTHER Dow Payer ID:[id number] (NAIC) Group ID:Not on file Type:Medicaid Managed Care Address: [facility] CLAIMS DEPARTMENT [address] [id number] MEDICAID - OUT OF [facility] MEDICAID - [place] MEDICAID [facility] Advance Directives * Full Code (Latest Code Status on File) Date Activated Date Inactivated Comments 09/21/2016 8:29 PM 09/24/2016 3:40 PM Care Teams Roofer Gypsum Relationship Specialty Start Date End Date Ebony Gunter MD Obstetrics and Gynecology 09/04/16
--- OUTSIDE RECORDS SUMMARY | 2024-08-14 15:06 | XMS_ITS | Encounter Summary ---
Author Organization [facility] Address [address] [place] [address] Phone Care Team Providers Care Ski Molder Name Role Phone Loraine Williamson APRN, CNP Unavailable Loraine Williamson APRN, JONAS Primary Care P rovider Tania Patino APRN, PATHOLOGY TECH Unavailable [phone] Jer Vines MD Unavailable [phone] Willie Saenz MD Unavailable Rena Ding MD Unavailable Reason for Visit * Reason Comments Medication Refill Encounter Details Date Type Department Care Team (Late st Contact Info) Description 02/05/[address] [facility] - [facility] Care - [place] [address] [place] [address] Loraine Williamson APRN, PATHOLOGY TECH [address] [place] [address] Medication Refill Social History Tobacco Use Types Packs/Day Years Used Date Smoking Tobacco: Never Smokeless Tobacco: Never Alcohol Use Standard Drinks/Week Comments Not Currently 0 (1 standard drink = 0.6 oz pur e alcohol) Education Answer Date Recorded What is the highest level of school you have completed or the highest degree you have received? 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 - Neurology - [place] [address] [place] [address] Jer Vines MD [address] [place] [address] 09/04/2024 10:30 AM CDT Office Visit [facility] - Orthopedic Surgery - [place] [address] [place] [address] Rena Ding MD [address] [address] documented as of this encounter Visit Diagnoses Not on filedocumented in this encounter Additional Health Concerns Infection Onset Date Last Indicated Resolved Time COVID - 19 04/07/2024 04/07/2024 04/07/2024 11:5 0 AM MUSIC SOUND LIGHT TECHNICIAN Respiratory Rule-Out 06/25/2024 06/25/2024 025 12:40 PM MUSIC SOUND LIGHT TECHNICIAN COVID - 19 06/25/2024 06/25/2024 06/25/2024 12:4 5 PM MUSIC SOUND LIGHT TECHNICIAN Influenza 06/25/2024 06/25/2024 07/02/2024 12:1 6 AM MUSIC SOUND LIGHT TECHNICIAN documented as of this encounter Care Teams Ski Molder Relationship Specialty Start Date End Date Loraine Williamson APRN, PATHOLOGY TECH [address] [place] [address] PCP - General Advanced Practice Nurse 03/20/21 Loraine Williamson APRN, PATHOLOGY TECH [address] [place] [address] Nurse Practitioner Advanced Practice Nurse 02/26/21 Tania Patino APRN, PATHOLOGY TECH [address] [facility] [address] [place] [address] Nurse Practitioner Advanced Practice Nurse 02/17/22 Jer Vines MD [address] [place] [id number] Consulting Physician Neurology 05/25/22 Willie Saenz MD [address] [facility] [address] [place] [address] Consulting Physician Colon and Rectal Surgery 07/12/23 Rena Ding MD [address] [facility] [address] [place] [address] Consulting Physician Orthopaedic Surgery 07/03/24 documented as of this encounter
--- OUTSIDE RECORDS SUMMARY | 2024-08-14 15:06 | XMS_ITS | Clinical Summary ---
Author Organization [facility] Address [address] [place] [address] Phone Care Team Providers Care Cleat Layer Name Role Phone Loraine Williamson APRN, JONAS Unavailable Loraine Williamson APRN, JONAS Primary Care P rovider Tania Patino APRN, INSULATION WORKER FURNACE INSTALLER Unavailable [phone] Jer Vines MD Unavailable [phone] Willie Saenz MD Unavailable Rena Ding MD Unavailable Allergies Active Allergy Reactions Criticality Noted Date Comments Amoxicillin-Pot Clavulanate Swelling 01/28/20 Cefadroxil Swelling 07/20/2016 Cephalosporins Swelling 01/27/2021 Penicillins Swelling 01/27/2021 Medications Cetirizine HCl (ZYRTEC PO) Take by mouth. Act flako levonorgestrel (Mirena, 52 MG,) 20 MCG/DAY IUD 1 Intra Uterine Device by Intrauterine route once. Active SUMAtriptan (IMITREX) 20 MG/ACT Solution [place] the entire contents of one sprayer into a nostril soon after the onset of a migraine headache. A second dose may be prayed into the other notrsil after at least 2 hours if the headache persists. Use no more than 2 sprays in a day. 8 Each 1 11/10/19 23 Active Vyvanse 20 MG Capsule TAKE 1 CAPSULE BY MOUTH IN THE MORNING 03/19/20 23 Active chlorhexidine (HIBICLENS) 4 % LiquidIndication s:Abscess of axillary region Use to axillary area twice a week to abscess areas, use daily if active abscess. 240 mL 07/08/19 24 Active Additional Information Patient not taking.Reported on 07/07/2024 Vyvanse 40 MG Capsule 04/04/20 24 Active Vilazodone HCl 40 MG Tablet Take 40 mg by mouth daily. 03/04/20 24 Active albuterol 108 (90 Base) MCG/ACT Aerosol SolutionIndicati ons:Moderate persistent asthma without complication take 2 Puffs by inhalation every 4 hours as needed for Wheezing. 18 g 1 04/27/20 24 Active albuterol (PROVENTIL, VENTOLIN) (2.5 MG/3ML) 0.083% Nebulizer SolnIndications: Moderate persistent asthma with acute exacerbation 3 mL by Nebulization route every 4 hours as needed for Wheezing, Shortness of Breath or Cough. 150 mL 06/25/19 25 Active topiramate (Topamax) 25 MG Tablet Take 1 Tablet by mouth 2 times daily for 15 days, THEN 2 Tablets 2 times daily for 75 days. 330 Tablet 07/08/19 25 025 Active Advair Diskus 100-50 MCG/ACT AEROSOL POWDER, BREATH ACTIVATED take 1 Puff by inhalation 2 times daily. 180 Each 1 07/27/19 25 Active Advair Diskus 100-50 MCG/ACT AEROSOL POWDER, BREATH ACTIVATED take 1 Puff by inhalation 2 times daily. 180 Each 04/27/20 24 025 Discontin ued(Reord er) Active Problems Problem Noted Date Diagnosed Date Episodic mood disorder 06/16/2022 Suspected sleep apnea 02/17/2022 Class 3 severe obesity due t o excess calories without serious comorbidity with body mass index (BMI) of 40.0 to 44.9 in adult 02/17/2022 Excessive daytime sleepiness 02/17/2022 Snoring 02/17/2022 Hepatitis C antibody test positive 09/21/2016 Herpes infection 09/21/2016 History of drug abuse 09/21/2016 Encounters Date Type Department Care Team Description 08/11/2024 Telephone [facility] - [place] [address] [place] [address] Jer Vines MD 08/09/2024 Telephone [facility] [place] [address] [place] [address] Jer Vines MD 07/26/2024 MyChart RX Renewal [facility] [place] [address] [place] [id number] Loraine Williamson APRN, INSULATION WORKER FURNACE INSTALLER Medication Renewal Reviewed 07/18/2024 Telephone [facility] [place] [address] [place] [address] Jer Vines MD 07/17/2024 2:[address] [facility] [address] [place] [address] Rena Ding MD Carpal tunnel syndrome, bilateral; Cubital tunnel syndrome, right Discharge Disposition: Discharged to home or Selfcare 07/17/2024 Travel 07/13/2024 Telephone [facility] [place] [address] [place] [address] Jer Vines MD 07/07/2024 1:00 PM DIRECTOR RADIO Office Visit [facility] [place] [address] [place] [address] Jer Vines MD Intractable migraine without aura and without status migrainosus (Primary Dx) Discharge Disposition: Discharged to home or Selfcare 07/07/2024 Travel 07/06/2024 Telephone [facility] [place] [address] [place] [address] Jer Vines MD 07/03/2024 10:00 AM DIRECTOR RADIO Office Visit [facility] - [facility]opedic Surgery - [place] [address] [place] [address] Rena Ding MD Carpal tunnel syndrome, bilateral (Primary Dx); Cubital tunnel syndrome, right; Ganglion cyst of volar aspect of right wrist Discharge Disposition: Discharged to home or Selfcare 07/02/2024 Travel 06/28/2024 Telephone [facility] [address] [place] [address] Loraine Williamson APRN, INSULATION WORKER FURNACE INSTALLER Letter for School/Work 06/25/2024 12:00 PM DIRECTOR RADIO Urgent Care Visit [facility] [place] [address] [place] [address] Amadou Mackenzie APRN, CNP Influenza A (Primary Dx); Moderate persistent asthma with acute exacerbation; Chills Discharge Disposition: Discharged to home or Selfcare 06/25/2024 Travel 06/21/2024 Telephone [facility] [place] [address] [place] [address] Jer Vines MD 05/16/2024 Results Follow-Up [facility] - [place] [address] [place] [address] Jer Vines MD from Last 3 Months Immunizations Immunization Administration Dates Next Due TDAP Vaccine 03/20/2020,09/04/2016 Family History Medical History Relation Name Comments Rheumatoid Arthritis Father No Known Problems Half-Sister 1 No Known Problems Half-Sister 2 No Known Problems Half-Sister 3 Cancer Maternal Grandmother Pancrea tic Multiple Sclerosis Mother Osteoporosis Mother Parkinsonism Paternal Grandmother Sbxe-Stmaxygxq-Kmxez Syndrome Paternal Grandmother ADD / ADHD Son 1 Asthma Son 1 No Known Problems Son 2 No Known Problems Son 3 Relation Name Status Comments Father Alive Half-Sister 1 Alive Half-Sister 2 Alive Half-Sister 3 Alive Maternal Grandmother Mother Alive Paternal Grandfather Alive Paternal Grandmother Son 1 Alive Son 2 Alive Son 3 Alive Social History Tobacco Use Types Packs/Day Years Used Date Smoking Tobacco: Some Days Cigarettes Started: 2001 Smokeless Tobacco: Never Tobacco Cessation:Ready to Q uit: Not Asked; Counseling Given: Not Answered Comments:Has one here and there. Last time bought a pack was 2020. Dose use vape Alcohol Use Standard Drinks/Week Comments Not Currently 0 (1 standard drink = 0.6 oz pur e alcohol) [facility] Utilities Answer Date Recorded In the past 12 months has th e [place], gas, oil, or water company threatened to shut off services in your home? No 07/07/2023 Social Connection and Isolat ion Panel [NHANES] Answer Date Recorded In a typical week, how many times do you talk on the phone with family, friends, or neighbors? More than three times a week 07/07/2023 How often do you get togethe r with friends or relatives? Twice a week 07/07/2023 How often do you attend chur ch or hindu services? Patient declined 07/07/2023 Do you belong to any clubs o r organizations such as anabaptism groups, unions, fraternal or athletic groups, or school groups? Patient declined 07/07/2023 How often do you attend meet ings of the clubs or organizations you belong to? Patient declined 07/07/2023 Are you , , di vorced, , never , or living with a partner? Never 07/07/2023 AUDIT-C Answer Date Recorded Q1: How often do you have a drink containing alcohol? Never 07/07/2023 Q2: How many drinks containi ng alcohol do you have on a typical day when you are drinking? Patient does not drink Q3: How often do you have si x or more drinks on one occasion? Never 07/07/2023 Overall Financial Resource Strain (CARDIA) Answe r Date Recorded How hard is it for you to pa y for the very basics like food, housing, medical care, and heating? Patient declined 07/07/2023 [facility] of Occupat ional Health - Occupational Stress Questionnaire Answer Date Recorded Do you feel stress - tense, restless, nervous, or anxious, or unable to sleep at night because your mind is troubled all the time - these days? Only a little 07/07/2023 Exercise Vital Sign Answer Date Recorde d On average, how many days pe r week do you engage in moderate to strenuous exercise (like a brisk walk)? 4 days 07/07/2023 On average, how many minutes do you engage in exercise at this level? 30 min 07/07/2023 Hunger Vital Sign Answer Date Recorded Within the past 12 months, y ou worried that your food would run out before you got the money to buy more. Patient declined Within the past 12 months, t he food you bought just didn't last and you didn't have money to get more. Patient declined 10/2023 PRAPARE - Transportation Answer Date Re corded In the past 12 months, has l ack of transportation kept you from medical appointments or from getting medications? No 10/2023 In the past 12 months, has l ack of transportation kept you from meetings, work, or from getting things needed for daily living? No 07/07/2023 Housing Stability Vital Sign Answer Marck e Recorded In the last 12 months, was t here a time when you were not able to pay the mortgage or rent on time? Patient declined 07/07/19 24 In the last 12 months, how many places have you lived? 1 07/07/2023 In the last 12 months, was t here a time when you did not have a steady place to sleep or slept in a fpc (including now)? No 07/07/2023 Education Answer Date Recorded What is the highest level of school you have completed or the highest degree you have received? Some college, no degree 02/03/2022 Sexually Active Control Partners Comments Yes Male Comments No Sex and Gender Information Value Date Recorded Sex Assigned at Female 07/09/2023 11:32 AM DIRECTOR RADIO Legal Sex Female 11:13 PM CDT Gender Identity Female 07/09/2023 11:32 AM DIRECTOR RADIO Sexual Orientation Not on file Last Filed Vital Signs Vital Sign Reading Time Taken Comments Blood Pressure 138/92 07/07/2024 1:12 PM DIRECTOR RADIO Pulse 111 07/07/2024 1:12 PM DIRECTOR RADIO Temperature 35.9 C (96.7 F) 07/07/2024 1:12 PM DIRECTOR RADIO Respiratory Rate 16 07/07/2024 1:12 PM DIRECTOR RADIO Oxygen Saturation 99% 07/07/2024 1:12 PM DIRECTOR RADIO Inhaled Oxygen Concentration - - Weight 84.8 kg (187 lb) 07/07/2024 1:12 PM DIRECTOR RADIO Height 154.9 cm (5' 1 ) 07/07/2024 1:12 PM DIRECTOR RADIO Body Mass Index 35.33 07/07/2024 1:12 PM DIRECTOR RADIO Plan of Treatment Upcoming Encounters Date Type Department Care Team (Late st Contact Info) Description 08/28/2024 1:00 PM CDT Office Visit [facility] - [facility] - [place] [address] [place] [address] Jer Vines MD [address] [place] [address] 09/04/2024 10:30 AM CDT Office [facility] - Orthopedic Surgery - [place] [address] [place] [address] Rena Ding MD [address] [address] Health Maintenance Due Date Last Done Comments Hepatitis B Immunization (1 of 3 - 19+ 3-dose series) 2009 Pneumococcal Immunization Combined (1 of 2 - PCV) 2009 Pap Smear 09/05/2019 09/04/2016 Cervical Cancer Screening (CCS) 2020 HPV/Cotest 2020 SARS-COV-2 Immunization (2 - season) 2024 04/29/2021 Influenza Immunization (Season Ended) 2025 Td Immunization Every 10 Years (Adults With 1 Tdap) 03/20/2030 03/20/2020, 09/04/2016 Respiratory Syncytial Virus (RSV) Immunization (Adult) (1 - 1-dose 75+ series) 2065 Hepatitis C Virus (HCV) Screening Completed 09/21/2016 DTaP/Tdap/Td Immunization Discontinued 2019, 09/04/2016 Meningococcal Immunization (ACWY) Aged Out No longer eligible based on patient's age to complete this topic Rotavirus Immunization Aged Out No lo nger eligible based on patient's age to complete this topic Procedures Procedure Name Priority Date/Time Associated Diagnosis Comments EMG Routine 07/17/2024 2:30 PM CDT Carpal tunnel syndrome, bilateral Cubital tunnel syndrome, right NERVE CONDUCTION STUDY 07/17/2024 12:00 AM CDT VISUAL TEST 07/05/2024 12:00 AM DIRECTOR RADIO [facility] CARPAL TUNNEL BILATERAL Routine 07/03/2024 10:47 AM DIRECTOR RADIO Carpal tunnel syndrome, bilateral POC SARS-COV-2 BY MOLECULAR Routine 06/25/2024 12:34 PM DIRECTOR RADIO Chills POC INFLUENZA A AND B BY MOLECULAR Routine 06/25/2024 12:24 PM DIRECTOR RADIO Chills from Last 3 Months Results * EMG (07/17/2024 2:30 PM CDT) Narrative Jer Vines MD - 07/17/2024 2:30 PM CDT Jer Vines MD 07/19/2024 10:52 AM Electromyogram Procedure Note Date of Procedure: 07/17/2024 Pre-operative Diagnosis: bilateral upper extremity numbness, tingling and pain. Post-operative Diagnosis: Indications: Diagnostic Procedure Details Motor Nerve Conduction Studies: The bilateral median motor nerve shows normal distal motor latency, normal motor amplitude and normal conduction velocity. The bilateral ulnar motor nerve shows normal distal motor latency, normal motor amplitude and normal conduction velocity. F waves: F wave latencies for the bilateral median nerve were normal. F wave latencies for the bilateral ulnar nerve were normal. Sensory Nerve Conduction Studies: The bilateral radial sensory nerve shows normal sensory nerve peak latency and normal sensory amplitude. Median ulnar comparisons were prolonged, bilaterally. Median radial comparisons were prolonged, bilaterally. The bilateral median sensory nerve shows prolonged sensory nerve peak latency and decreased sensory amplitude. The bilateral ulnar sensory nerve shows normal sensory nerve peak latency and normal sensory amplitude. 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 There was little change since last study on 03/25/2022. Clinical correlation is recommended. us Rena Ding MD NEUROLOGY ORDERABLES V2 Final Re sult * NERVE CONDUCTION STUDY (07/17/2024 12:00 AM CDT) 07/17/2024 Rena Ding MD NEUROLOGY ORDERABLES Final Resul t SCAN * VISUAL TEST (07/05/2024 12:00 AM DIRECTOR RADIO) 07/05/2024 us Provider Scan OPHTHALMOLOGY SERVICES ORDERABLE S Final Result SCAN * [facility] CARPAL TUNNEL BILATERAL (07/03/2024 10:47 AM DIRECTOR RADIO) Narrative Rena Ding MD - 07/03/2024 10:47 AM DIRECTOR RADIO Rena Ding MD 07/03/2024 10:50 AM Hand/Upper Ext INJ/ASP: bilateral carpal tunnel Date/Time: 07/03/2024 10:47 AM Performed by: Rena Ding MD Authorized by: Rena Ding MD Procedure: carpal tunnel injection Laterality: Bilateral Site: Bilateral carpal tunnel Medication (Right): 40 mg triamcinolone acetonide 40 MG/ML; 10 mL bupivacaine (PF) 0.5 % Medication (Left): 40 mg triamcinolone acetonide 40 MG/ML; 10 mL bupivacaine (PF) 0.5 % Rena Ding MD OUTPT PROCEDURE ORDERABLES Final Result * POC SARS-COV-2 BY MOLECULAR (06/25/2024 12:34 PM DIRECTOR RADIO) SARSCOV2 Negative Negative, INVALID PROCEDURE CONTROL Valid 06/25/2024 12:3 4 PM DIRECTOR RADIO Amadou Mackenzie APRN, INSULATION WORKER FURNACE INSTALLER POINT OF CARE TE STING (MANUAL) Final Result * (ABNORMAL) POC INFLUENZA A AND B BY MOLECULAR (06/25/2024 12:24 PM DIRECTOR RADIO) INFLUENZA A RNA Positive(A) Negative, Invalid INFLUENZA B RNA Negative Negative, Invalid PROCEDURE CONTROL Valid 06/25/2024 12:2 4 PM DIRECTOR RADIO Amadou Mackenzie APRN, CNP POINT OF CARE TE STING (MANUAL) Final Result from Last 3 Months Insurance MEDICAID [employer] Care Teams Cleat Layer Relationship Specialty Start Date End Date Loraine Williamson APRN, CNP [address] [place] [address] PCP - General Advanced Practice Nurse 03/20/21 Loraine Williamson APRN, CNP [address] [place] [address] Nurse Practitioner Advanced Practice Nurse 02/26/21 Tania Patino APRN, CNP [address] [address] Nurse Practitioner Advanced Practice Nurse 02/17/22 Jer Vines MD [address] [place] [address] Consulting Physician Neurology 05/25/22 Willie Saenz MD [address] [address] Consulting Physician Colon and Rectal Surgery 07/12/23 Rena Ding MD #[address] [address] Consulting Physician Orthopaedic Surgery 07/03/24
--- OUTSIDE RECORDS SUMMARY | 2024-08-14 15:06 | XMS_ITS | Clinical Summary ---
Author Organization [facility] Address [address] [place] [address] Care Team Providers Care Associate Dentist Name Role Phone Loraine Williamson NP Primary Care Provide r Allergies Active Allergy Reactions Criticality Noted Date Comments Amoxicillin-Pot Clavulanate Medium Cefadroxil Low Penicillins Unknown 08/10/2022 Medications ARIPiprazole (ABILIFY) 10 mg tablet Take 1 tablet (10 mg total) by mouth daily 3 Active levonorgestreL (Mirena) IUD 1 Intra Uterine Device by intrauterine route once Active cetirizine (ZyrTEC) 10 mg tablet Take by mouth Active acetaZOLAMIDE (DIAMOX) 250 mg tablet Take 1 tablet (250 mg total) by mouth 2 (two) times a day Active Active Problems Problem Noted Date Diagnosed Date Episodic mood disorder 06/16/2022 Excessive daytime sleepiness 02/17/2022 Suspected sleep apnea 02/17/2022 Asthma 11/25/2018 Hepatitis C antibody test positive 09/21/2016 Herpes infection 09/21/2016 History of drug abuse 09/21/2016 Low grade squamous intraepit h lesion on cytologic smear cervix (lgsil) 09/21/2016 Social History Tobacco Use Types Packs/Day Years Used Date Smoking Tobacco: Never Smokeless Tobacco: Never Personal Safety Answer Date Recorded Getting School Help Needed Not on file 05/02 Comments Unknown Sex and Gender Information Value Date Recorded Sex Assigned at Not on file Legal Sex Female 1:38 AM ENVIRONMENTAL SERVICES SUPERVISOR Gender Identity Not on file Sexual Orientation Not on file Obstetrics History Last Filed Vital Signs Vital Sign Reading Time Taken Comments Blood Pressure 113/77 08/10/2022 10:42 AM CDT Pulse 78 08/10/2022 10:42 AM CDT Temperature 37.1 C (98.8 F) 02/01/2017 6:19 PM CDT Respiratory Rate - - Oxygen Saturation 97% 08/10/2022 10:42 AM CDT Inhaled Oxygen Concentration - - Weight 98.5 kg (217 lb 3.2 oz) 08/10/2022 10:42 AM CDT Height 152.4 cm (5') 08/10/2022 10:42 AM CDT Body Mass Index 42.42 08/10/2022 10:42 AM CDT Plan of Treatment Health Maintenance Due Date Last Done Comments Cervical Cancer Screening 1990 Depression Screening 1990 Hepatitis C Screening 1990 Varicella Vaccines (1 of 2 - 13+ 2-dose series) 11/22/2003 Hepatitis B Screening 2008 Regular Well Visit/Exam 18-64 2008 Pneumococcal vaccine <65 (1 of 2 - PCV) 2009 Covid-19 Vaccine (2 - 2023-2 5 season) 2024 04/29/2021 Influenza Vaccine (Season Ended) 2025 DTaP/Tdap/Td Vaccine (3 - Td or Tdap) 03/20/2030 03/20/2020, 09/04/2016 HPV Vaccines Aged Out No longer eligi ble based on patient's age to complete this topic Insurance [facility] Care Teams Associate Dentist Relationship Specialty Start Date End Date Loraine Williamson NP [address] [place] [address] PCP - General Emergency Medicine 06/19/22
--- OUTSIDE RECORDS SUMMARY | 2024-08-14 15:06 | XMS_ITS | Encounter Summary ---
Author Organization [facility] Address [address] [place] [address] Phone Care Team Providers Care Grain Picker Name Role Phone Loraine Williamson APRN, CNP Unavailable Loraine Williamson APRN, JONAS Primary Care P rovider Tania Patino APRN, RUBBER FACTORY WORKER Unavailable [phone] Jer Vines MD Unavailable [phone] Willie Saenz MD Unavailable Rena Ding MD Unavailable Reason for Visit * Reason Comments Medication Refill Encounter Details Date Type Department Care Team (Late st Contact Info) Description 05/04/2024 Refill [facility] - [facility] - [place] [address] [place] [address] Loraine Williamson APRN, RUBBER FACTORY WORKER [address] [place] [address] Medication Refill Social History Tobacco Use Types Packs/Day Years Used Date Smoking Tobacco: Some Days Cigarettes Started: 2001 Smokeless Tobacco: Never Comments:Has one here and th ere. Last time bought a pack was 2020. Dose use vape Alcohol Use Standard Drinks/Week Comments Not Currently 0 (1 standard drink = 0.6 oz pur e alcohol) [facility] Utilities Answer Date Recorded In the past 12 months has th e electric, gas, oil, or water company threatened to [...] often do you attend chur ch or denominational services? Patient declined 07/07/2023 Do you belong to any clubs o r organizations such as zoroastrian groups, unions, fraternal or athletic groups, or [...] medical care, and heating? Patient declined 07/07/2023 [facility] of Occupat ional Health - Occupational Stress [...] place to sleep or slept in a skilled nursing (including now)? No 07/07/2023 Education Answer Date Recorded What is the highest level of school you have completed or the highest degree you have received? Some college, no degree 02/03/2022 Sexually Active Control Partners Comments Yes Male Comments No Sex and Gender Information Value Date Recorded Sex Assigned at Female 07/09/2023 11:32 AM ORACLE APPLICATIONS ANALYST Legal Sex Female 11:13 PM CDT Gender Identity Female 07/09/2023 11:32 AM ORACLE APPLICATIONS ANALYST Sexual Orientation Not on file documented as of this encounter Miscellaneous Notes * Telephone Encounter - Margarita Nicole RN - 05/04/2024 9:45 AM CST Duplicate request. LE APPLICATIONS ANALYST documented in this encounter Plan of Treatment Upcoming Encounters Date Type Department Care Team (Late st Contact Info) Description 08/28/2024 1:00 PM CDT Office Visit [facility] - Neurology [facility] [address] [place] [address] Jer Vines MD [address] [place] [address] 09/04/2024 10:30 AM CDT Office Visit [facility] - Orthopedic Surgery [facility] [address] [place] [address] Rena Ding MD [address] [address] documented as of this encounter Visit Diagnoses Not on filedocumented in this encounter Additional Health Concerns Infection Onset Date Last Indicated Resolved Time Respiratory Rule-Out 06/25/2024 06/25/2024 025 12:40 PM ORACLE APPLICATIONS ANALYST COVID - 19 06/25/2024 06/25/2024 06/25/2024 12:4 5 PM ORACLE APPLICATIONS ANALYST Influenza 06/25/2024 06/25/2024 07/02/2024 12:1 6 AM ORACLE APPLICATIONS ANALYST documented as of this encounter Care Teams Grain Picker Relationship Specialty Start Date End Date Loraine Williamson APRN, RUBBER FACTORY WORKER [address] [place] [address] PCP - General Advanced Practice Nurse 03/20/21 Loraine Williamson APRN, RUBBER FACTORY WORKER [address] [place] [address] Nurse Practitioner Advanced Practice Nurse 02/26/21 Tania Patino APRN, RUBBER FACTORY WORKER [address] [address] Nurse Practitioner Advanced Practice Nurse 02/17/22 Jer Vines MD [address] [place] [address] Consulting Physician Neurology 05/25/22 Willie Saenz MD [address] [address] Consulting Physician Colon and Rectal Surgery 07/12/23 Rena Ding MD [address] [address] Consulting Physician Orthopaedic Surgery 07/03/24 documented as of this encounter
--- OUTSIDE RECORDS SUMMARY | 2024-08-14 15:06 | XMS_ITS | Patient Health Record ---
Author Organization [facility] Address [address] [place] [address] Care Team Providers Care Supervisor Knitting Name Role Phone Nikko Aguilarel Primary Care Provider [phone] Allergies Allergen (clinical drug ingredient) Drug/Non Drug Allergy documented on EMR Reaction Allergy Type Onset Date Status amoxicillin / clavulanate Augmentin anaphylaxis Drug Allergy Active cefadroxil Cefadroxil anaphylaxis Drug Allergy Act flako Reason For Referral No Information Medications Medication SIG (Take, Route, Frequency, Duration) Notes Start Date End Date Status Abilify 10 MG 1 tablet Orally Once a day for 30 day(s) 05/05/2022 Active All Day Allergy 10 MG 1 tablet Orally On ce a day Active Biotin 10 MG 1 tablet Orally Once a day Active Vraylar 1.5 MG 1 capsule Orally Onc e a day for 30 day(s) Active Propranolol HCl 10 MG 1 tablet Orally th ree times daily as needed for anxiety Active Multivitamin - 1 tablet Orally Once a day Active Advair Diskus 250-50 MCG/ACT 1 puff Inhalation Twice a day Active Social History Tobacco Use: Social History Observation Description Date Details (start date - stop date) Unknown Sex Assigned At : Social History Observation Description Sex Assigned At Female Dont use, Tobacco Use/Smoking Question Answer Notes Are you a Uses tobacco in other forms Additional Findings: Tobacco User e-Cigarette Problems Problem Type SNOMED Code ICD Code Onset Dates Problem Status W/U Status Risk Notes Problem Tobacco user (670501088) Nicotine dependence, unspecified, uncomplicated (F17.200) Active confirmed Problem Mood disorder (77290062) Mood disorder (F39) Active confirmed Plan Of Treatment No Information Insurance Providers Payer Name Payer Address Payer Phone Subscriber Number Group Number Insured Name Patient Relationship to Insured Coverage Start Date Coverage End Date [facility] Attn Claims Department [address] [place] [address] [phone] [id number] Yanci Charles Self - patient is the insured 2 [facility] Attn Claims Department [address] [place] [address] [phone] [id number] Yanci Charles Self - patient is the insured 2 Medical (General) History Medical History History ICD Code sleep apnea Surgical History Surgery Date(Month/Year) tubal ligation 06/2019 tonsillectomy
--- OUTSIDE RECORDS SUMMARY | 2024-08-14 15:06 | XMS_ITS | Encounter Summary ---
Author Organization [facility] Address [address] [place] [address] Phone Care Team Providers Care Retail Sales Specialist Name Role Phone Loraine Williamson APRN, CNP Unavailable Loraine Williamson APRN, JONAS Primary Care P rovider Tania Patino APRN, ELECTROMECHANICAL TECHNICIAN Unavailable [phone] Jer Vines MD Unavailable [phone] Willie Saenz MD Unavailable Rena Ding MD Unavailable Reason for Visit * Reason Comments Medication Refill Encounter Details Date Type Department Care Team (Late st Contact Info) Description 08/26/2023 Refill [facility] - Primary Care - [place] [address] [place] [address] Loraine Williamson APRN, ELECTROMECHANICAL TECHNICIAN [address] [place] [address] Medication Refill Social History Tobacco Use Types Packs/Day Years Used Date Smoking Tobacco: Some Days Cigarettes Started: 2001 Smokeless Tobacco: Never Comments:Has one here and th ere. Last time bought a pack was 2020. Dose use vape Alcohol Use Standard Drinks/Week Comments Not Currently 0 (1 standard drink = 0.6 oz pur e alcohol) [facility] Utilities Answer Date Recorded In the past [...] often do you attend chur ch or oriental orthodox services? Patient declined 07/07/2023 Do you belong to any clubs o r organizations such as jainism groups, unions, fraternal or athletic groups, or [...] medical care, and heating? Patient declined 07/07/2023 [facility] - Occupational Stress [...] place to sleep or slept in a residential (including now)? No 07/07/2023 Education Answer Date Recorded What is the highest level of school you have completed or the highest degree you have received? Some college, no degree 02/03/2022 Sexually Active Control Partners Comments Yes Male Comments No Sex and Gender Information Value Date Recorded Sex Assigned at Female 07/09/2023 11:32 AM WATER PLANT PUMP OPERATOR SUPERVISOR Legal Sex Female 11:13 PM CDT Gender Identity Female 07/09/2023 11:32 AM WATER PLANT PUMP OPERATOR SUPERVISOR Sexual Orientation Not on file documented as of this encounter Miscellaneous Notes * Telephone Encounter - John Thomas RN - 08/26/2023 3:48 PM CDT Medication(s) refilled and signed per [facility] Chronic Medication Refill Standing Order for Pediatricand Adult Patients. Requested Prescriptions Pending Prescriptions Disp Refills Advair Diskus 100-50 MCG/ACT AEROSOL POWDER, BREATH ACTIVATED [Pharmacy Med Name: ADVAIR DISKUS 100/50MCG (GREEN)60S] 180 Each 0 Sig: INHALE 1 PUFF BY MOUTH TWICE DAILY Inhaled Combinations Protocol Passed - 08/26/2023 3:39 PM Passed - Visit with relevant provider in past 12 months or upcoming 90 days Recent Visits Date Type Provider Dept 07/08/23 Office Visit Loraine Williamson APRN, JONAS [facility] Showing recent visits within past 365 days and meeting all other requirements Future Appointments No visits were found meeting these conditions. Showing future appointments within next 90 days and meeting all other requirements Passed - Active short-acting beta agonist prescription documented in this encounter Plan of Treatment Upcoming Encounters Date Type Department Care Team (Late st Contact Info) Description 08/28/2024 1:00 PM CDT Office Visit [facility] - Neurology - [place] [address] [place] [address] Jer Vines MD [address] [place] [address] 09/04/2024 10:30 AM CDT Office Visit [facility] - Orthopedic Surgery - [place] [address] [place] [address] Rena Ding MD [address] [address] documented as of this encounter Visit Diagnoses Not on filedocumented in this encounter Additional Health Concerns Infection Onset Date Last Indicated Resolved Time COVID - 19 04/07/2024 04/07/2024 04/07/2024 11:5 0 AM WATER PLANT PUMP OPERATOR SUPERVISOR Respiratory Rule-Out 06/25/2024 06/25/2024 025 12:40 PM WATER PLANT PUMP OPERATOR SUPERVISOR COVID - 19 06/25/2024 06/25/2024 06/25/2024 12:4 5 PM WATER PLANT PUMP OPERATOR SUPERVISOR Influenza 06/25/2024 06/25/2024 07/02/2024 12:1 6 AM WATER PLANT PUMP OPERATOR SUPERVISOR documented as of this encounter Care Teams Retail Sales Specialist Relationship Specialty Start Date End Date Loraine Williamson APRN, ELECTROMECHANICAL TECHNICIAN [address] [place] [address] PCP - General Advanced Practice Nurse 03/20/21 Loraine Williamson APRN, ELECTROMECHANICAL TECHNICIAN [address] [place] [address] Nurse Practitioner Advanced Practice Nurse 02/26/21 Tania Patino APRN, ELECTROMECHANICAL TECHNICIAN [address]2 [facility] [address] [place] [address] Nurse Practitioner Advanced Practice Nurse 02/17/22 Jer Vines MD [address] [place] [address] Consulting Physician Neurology 05/25/22 Willie Saenz MD #[address] [address] Consulting Physician Colon and Rectal Surgery 07/12/23 Rena Ding MD #[address] [address] Consulting Physician Orthopaedic Surgery 07/03/24 documented as of this encounter
--- OUTSIDE RECORDS SUMMARY | 2024-08-14 15:06 | XMS_ITS | Encounter Summary ---
Author Organization [facility] Address [address] [place] [address] Phone Care Team Providers Care Cook Soup Name Role Phone Loraine Williamson APRN, CNP Unavailable Loraine Williamson APRN, JONAS Primary Care P rovider Tania Patino APRN, DEVELOPMENT EXECUTIVE Unavailable [phone] Jer Vines MD Unavailable [phone] Willie Saenz MD Unavailable Rena Ding MD Unavailable Reason for Visit * Reason Comments Medication Refill Encounter Details Date Type Department Care Team (Late st Contact Info) Description 05/11/2023 Refill [facility] - Primary Care - [place] [address] [place] [address] Loraine Williamson APRN, DEVELOPMENT EXECUTIVE [address] [place] [address] Medication Refill Social History Tobacco [...] Sex Assigned at Female 07/09/2023 11:32 AM PRINT PROJECT MANAGER Legal Sex Female 11:13 PM CDT Gender Identity Female 07/09/2023 11:32 AM PRINT PROJECT MANAGER Sexual Orientation Not on file documented as of this encounter Miscellaneous Notes * Telephone Encounter - John Thomas RN - 05/11/2023 8:23 AM CST Refill requested too soon. T PROJECT MANAGER documented in this encounter Plan of Treatment Upcoming Encounters Date Type Department Care Team (Late st Contact Info) Description 08/28/2024 1:00 PM CDT Office Visit [facility] - Neurology - [place] [address] [place] [address] Jer Vines MD [address] [place] [address] 09/04/2024 10:30 AM CDT [facility] [address] [place] [address] Rena Ding MD #[address] [address] documented as of this encounter Visit Diagnoses Not on filedocumented in this encounter Additional Health Concerns Infection Onset Date Last Indicated Resolved Time COVID - 19 04/07/2024 04/07/2024 04/07/2024 11:5 0 AM PRINT PROJECT MANAGER Respiratory Rule-Out 06/25/2024 06/25/2024 025 12:40 PM PRINT PROJECT MANAGER COVID - 19 06/25/2024 06/25/2024 06/25/2024 12:4 5 PM PRINT PROJECT MANAGER Influenza 06/25/2024 06/25/2024 07/02/2024 12:1 6 AM PRINT PROJECT MANAGER documented as of this encounter Care Teams Cook Soup Relationship Specialty Start Date End Date Loraine Williamson APRN, JONAS [address] [place] [address] PCP - General Advanced Practice Nurse 03/20/21 Loraine Williamson APRN, DEVELOPMENT EXECUTIVE [address] [place] [address] Nurse Practitioner Advanced Practice Nurse 02/26/21 Tania Patino APRN, JONAS [address]2 [facility] [address] [place] [address] Nurse Practitioner Advanced Practice Nurse 02/17/22 Jer Vines MD [address] [place] [address] Consulting Physician Neurology 05/25/22 Willie Saenz MD #[address] [address] Consulting Physician Colon and Rectal Surgery 07/12/23 Rena Ding MD #[address] [address] Consulting Physician Orthopaedic Surgery 07/03/24 documented as of this encounter
--- OUTSIDE RECORDS SUMMARY | 2024-08-14 15:06 | XMS_ITS | Encounter Summary ---
Author Organization [facility] Address [address] [place] [address] Phone Care Team Providers Care Woods Boss Name Role Phone Loraine Williamson APRN, CNP Unavailable Loraine Williamson APRN, JONAS Primary Care P rovider Tania Patino APRN, LINUX ADMIN Unavailable [phone] Jer Vines MD Unavailable [phone] Willie Saenz MD Unavailable Rena Ding MD Unavailable Reason for Visit * Reason Comments Medication Refill Encounter Details Date Type Department Care Team (Late st Contact Info) Description 06/06/2023 Refill [facility] - Primary Care - [place] [address] [place] [address] Loraine Williamson APRN, LINUX ADMIN [address] [place] [address] Medication Refill Social History Tobacco [...] Sex Assigned at Female 07/09/2023 11:32 AM BROADCASTING EQUIPMENT MECHANIC Legal Sex Female 11:13 PM CDT Gender Identity Female 07/09/2023 11:32 AM BROADCASTING EQUIPMENT MECHANIC Sexual Orientation Not on file documented as of this encounter Miscellaneous Notes * Telephone Encounter - John Thomas RN - 06/07/2023 9:32 AM CST Duplicate Request DCASTING EQUIPMENT MECHANIC documented in this encounter Plan of Treatment Upcoming Encounters Date Type Department Care Team (Late st Contact Info) Description 08/28/2024 1:00 PM CDT Office Visit [facility] - Neurology - [place] [address] [place] [address] Jer Vines MD [address] [place] [address] 09/04/2024 10:30 AM CDT Office Visit [facility] Group - Orthopedic Surgery [facility] [address] [place] [address] Rena Ding MD #[address] [address] documented as of this encounter Visit Diagnoses Not on filedocumented in this encounter Additional Health Concerns Infection Onset Date Last Indicated Resolved Time COVID - 19 04/07/2024 04/07/2024 04/07/2024 11:5 0 AM BROADCASTING EQUIPMENT MECHANIC Respiratory Rule-Out 06/25/2024 06/25/2024 025 12:40 PM BROADCASTING EQUIPMENT MECHANIC COVID - 19 06/25/2024 06/25/2024 06/25/2024 12:4 5 PM BROADCASTING EQUIPMENT MECHANIC Influenza 06/25/2024 06/25/202407/0207/02/2024 12:1 6 AM BROADCASTING EQUIPMENT MECHANIC documented as of this encounter Care Teams Woods Boss Relationship Specialty Start Date End Date Loraine Williamson APRN, JONAS [address] [place] [address] PCP - General Advanced Practice Nurse 03/20/21 Loraine Williamson APRN, LINUX ADMIN [address] [place] [address] Nurse Practitioner Advanced Practice Nurse 02/26/21 Tania Patino APRN, JONAS #[address] [address] Nurse Practitioner Advanced Practice Nurse 02/17/22 Jer Vines MD #[address] [place] [address] Consulting Physician Neurology 05/25/22 Willie Saenz MD #[address] [address] Consulting Physician Colon and Rectal Surgery 07/12/23 Rena Ding MD #[address] [address] Consulting Physician Orthopaedic Surgery 07/03/24 documented as of this encounter
--- OUTSIDE RECORDS SUMMARY | 2024-08-14 15:06 | XMS_ITS | Encounter Summary ---
Author Organization [facility] Address [address] [place] [address] Phone Care Team Providers Care Ranch Rider Name Role Phone Loraine Williamson APRN, CNP Unavailable Loraine Williamson APRN, JONAS Primary Care P rovider Tania Patino APRN, HYDROMETER FINISHER Unavailable [phone] Jer Vines MD Unavailable [phone] Willie Saenz MD Unavailable Rena Ding MD Unavailable Reason for Visit * Reason Comments Medication Refill Encounter Details Date Type Department Care Team (Late st Contact Info) Description 02/21/2022 Refill [facility] - Primary Care - [place] [address] [place] [address] Loraine Williamson APRN, HYDROMETER FINISHER [address] [place] [address] Medication Refill Social History Tobacco [...] Sex Assigned at Female 07/09/2023 11:32 AM STROBOSCOPE OPERATOR Legal Sex Female 11:13 PM CDT Gender Identity Female 07/09/2023 11:32 AM STROBOSCOPE OPERATOR Sexual Orientation Not on file COVID-19 Exposure Response Date Recorded In the last 10 days, have yo u been in contact with someone who was confirmed or suspected to have Coronavirus/COVID-19? No / Unsure 02/18/2022 10:14 AM CDT documented as of this encounter Miscellaneous Notes * Telephone Encounter - Stephy Solano RN - 02/23/2022 10:52 AM CDT Medication discontinued on 10/02/21. documented in this encounter Plan of Treatment Upcoming Encounters Date Type Department Care Team (Late st Contact Info) Description 08/28/2024 1:00 PM CDT Office Visit [facility] - Neurology - [place] [address] [place] [address] Jer Vines MD #[address] [place] [address] 09/04/2024 10:30 AM CDT Office Visit [facility] - Orthopedic Surgery - [place] [address] [place] [address] Rnea Ding MD #[address] [address] documented as of this encounter Visit Diagnoses Diagnosis Moderate persistent asthma without complication Unspecified asthma documented in this encounter Additional Health Concerns Infection Onset Date Last Indicated Resolved Time COVID - 19 04/15/2022 04/15/2022 04/25/2022 12:1 6 AM STROBOSCOPE OPERATOR Respiratory Rule-Out 04/15/2022 04/15/2022 022 10:53 AM STROBOSCOPE OPERATOR COVID - 19 05/10/2022 05/10/2022 05/20/2022 12:1 6 AM STROBOSCOPE OPERATOR COVID - 19 04/07/2024 04/07/2024 04/07/2024 11:5 0 AM STROBOSCOPE OPERATOR Respiratory Rule-Out 06/25/2024 06/25/2024 025 12:40 PM STROBOSCOPE OPERATOR COVID - 19 06/25/2024 06/25/2024 06/25/2024 12:4 5 PM STROBOSCOPE OPERATOR Influenza 06/25/2024 06/25/2024 07/02/2024 12:1 6 AM STROBOSCOPE OPERATOR documented as of this encounter Care Teams Ranch Rider Relationship Specialty Start Date End Date Loraine Williamson APRN, HYDROMETER FINISHER [address] [place] [address] PCP - General Advanced Practice Nurse 03/20/21 Loraine Williamson APRN, HYDROMETER FINISHER [address] [place] [address] Nurse Practitioner Advanced Practice Nurse 02/26/21 Tania Patino APRN, HYDROMETER FINISHER #[address] [address] Nurse Practitioner Advanced Practice Nurse 02/17/22 Jer Vines MD #[address] [place] [address] Consulting Physician Neurology 05/25/22 Willie Saenz MD #[address] [address] Consulting Physician Colon and Rectal Surgery 07/12/23 Rena Ding MD #[address] [address] Consulting Physician Orthopaedic Surgery 07/03/24 documented as of this encounter
--- OUTSIDE RECORDS SUMMARY | 2024-08-14 15:06 | XMS_ITS | Referral Summary ---
Author Organization [facility] Medical Office [address] Address [address] [place] [address] Care Team Providers Care Scout Sniper Name Role Phone Loraine Williamson NP Primary [...] on file Legal Sex Female 1:38 AM SUPERVISOR FILTRATION Gender Identity Not on file Sexual Orientation Not on file Last Filed [...] 08/10/2022 10:42 AM CDT Plan of Treatment Not on file Insurance Care Teams Scout Sniper Relationship Specialty Start Date End Date Loraine Williamson NP [address] [place] [address] PCP - General Emergency Medicine 06/19/22
== END 2024-08-14 14:30 | disposition home or self-care (01) ==
PROVIDERS: Emergency Provider Nurse Practitioner Family
DX: T15.91XA Foreign body on external eye, part unspecified, right eye, initial encounter (principal); S05.01XA Injury of conjunctiva and corneal abrasion without foreign body, right eye, initial encounter; W44.C0XA Glass unspecified, entering into or through a natural orifice, initial encounter; H53.8 Other visual disturbances; F17.210 Nicotine dependence, cigarettes, uncomplicated
CPT/HCPCS: 99213; A9270; G0463

== ENCOUNTER 2024-12-18 10:43 | Emergency (ER) | payer OTHER, SELFPAY ==
[2024-12-18 11:12] VITALS: BP 127/82; PULSE 94; RESP 16; TEMP 36.7; O2SAT 100
[2024-12-18 11:33] LABS: EDSTREPNEGPOS1 Negative (Negative)
--- NOTE | 2024-12-18 11:44 | ED_ITS ---
HPI - URI/Sore Throat General Chief Complaint: Upper Respiratory Infection Stated Complaint: strep symptoms Time Seen by Provider: 12/18/24 11:30 Source: patient and RN notes reviewed Mode of arrival: ambulatory Limitations: no limitations History of Present Illness HPI Narrative: 34-year-old female presents [facility] complaining of upper respiratory symptoms for proximally 3 days. Patient reports congestion, sore throat, cough, earache. Patient denies any fevers, body aches, chills, chest pain, shortness of breath, nausea vomiting diarrhea, or any other symptoms. Patient has not been taking the help with symptoms. Patient has a significant past medical history. Related Data Home Medications ?Medication ?Instructions ?Recorded ?Confirmed ?Last Taken ?Type albuterol sulfate 2.5 mg/3 mL mg 08/14/24 Unknown History (0.083 %) solution for nebulization albuterol sulfate 90 mcg/actuation inhalation 08/14/24 Unknown History aerosol inhaler lisdexamfetamine 40 mg capsule mg 08/14/24 Unknown History (Vyvanse) vilazodone 40 mg tablet mg 08/14/24 Unknown History metoprolol succinate 25 mg mg PO 12/18/24 Unknown History tablet,extended release 24 hr Allergies Allergy/AdvReac Type Severity Reaction Status Date / Time amoxicillin Allergy THROAT Verified 08/14/24 13:57 SWELLING cefadroxil (From Duricef) Allergy throat Verified 08/14/24 13:57 swelling clavulanic acid (From Allergy Swelling Verified 08/14/24 13:57 Augmentin) Penicillins Allergy THROAT Verified 08/14/24 13:57 SWELLING Review of Systems Review of Systems: CONSTITUTIONAL: Denies fever, chills, body aches, or sweats. EYES: Denies visual changes, redness, or discharge. ENT: Positive for congestion, sore throat, or otalgia. Denies rhinorrhea. CARDIOVASCULAR: Denies chest pain, palpitations, or edema. RESPIRATORY: Positive for cough. Negative for dyspnea or wheezing. GASTROINTESTINAL: Denies abdominal pain, nausea, vomiting, or diarrhea. GENITOURINARY: Denies dysuria or hematuria. SKIN: Denies rash or itching. MUSCULOSKELETAL: Denies back pain, joint pain, or myalgia. NEUROLOGIC: Denies headache, numbness, or weakness. PSYCHIATRIC: Denies anxiety or depression. All other systems reviewed are negative, except as documented in HPI. [facility] Past Medical History Medical History History of narcotic addiction in treatment now Anxiety Migraine Asthma Surgical History Surgical History History of placement of ear tubes History of tubal ligation Hx of tonsillectomy [place] teeth extracted Hx of myringotomy Family History Family History Grandparent Breast cancer Mother Multiple sclerosis Parkinsonism Social History Social History Smoking packs per day: 1 Smoking cigarettes per day: 20.0 Years smoked: 15 Smoking pack-years: 15.00 Smoking status: Current every day smoker Tobacco type: e-cigarettes/vaping Smoking end date: 02/04/19 Additional smoking assessment comments: stop smoking cigarettes jan Alcohol intake: never Substance use: current Substance use type: marijuana Last use: 2 years in august Living arrangements: with family Gender identity (if verbalized by the patient): Female Sexual Orientation (if Verbalized by the Patient): Straight or Heterosexual Spiritual care concerns: No Comments At the time of my signature, I reviewed and agree with the nursing past medical, surgical, social, and family history. There is no relevant family history pertinent to the patient complaint. Exam Narrative: GENERAL: This is a well-nourished, well-developed adult, in no apparent distress. They are non ill-appearing, nontoxic appearing. HEAD: normocephalic, atraumatic. EYES: Sclera clear/white. Vision is grossly intact. Conjunctiva normal bilaterally. Extraocular movements intact. EARS: External ears normal, auditory canals clear and without drainage, TMs without erythema or perforation. Hearing grossly intact. NOSE: External nose normal with no obvious nasal discharge, nasal turbinates erythematous, no rhinorrhea. THROAT: Mucous membranes moist, posterior pharynx erythematous without exudate. Uvula is midline. Postnasal drip present. NECK: Neck supple, non-tender without lymphadenopathy, masses or thyromegaly. CARDIOVASCULAR: Regular rate and rhythm without murmurs, gallops, or rubs. RESPIRATORY: Clear to auscultation. Breath sounds equal bilaterally. No wheezes, rales, or rhonchi. SKIN: warm, Dry, intact with no suspicious lesions or rash, good texture and turgor. NEURO: awake, alert, and oriented to person, place and time. There were no obvious focal neurologic abnormalities. EXTREMITIES: No joint tenderness, effusion, or edema noted. BACK: Nontender without deformity. Course Course Emergency Course: Portions of this record may have been created with voice recognition software Level of Care: [facility] Visit Vital Signs Vital signs: Vital Signs Temperature 98.1 F 12/18/24 11:12 Pulse Rate 94 12/18/24 11:12 Respiratory Rate 16 12/18/24 11:12 Blood Pressure 127/82 12/18/24 11:12 Pulse Oximetry 100 12/18/24 11:12 Oxygen Delivery Room Air 12/18/24 11:12 Temperature 98.1 F 12/18/24 11:12 Pulse Rate 94 12/18/24 11:12 Respiratory Rate 16 12/18/24 11:12 Blood Pressure 127/82 12/18/24 11:12 Pulse Oximetry 100 12/18/24 11:12 Oxygen Delivery Room Air 12/18/24 11:12 MDM - URI/Sore Throat MDM Narrative Medical decision making narrative: Rapid COVID and flu are negative. Strep negative. Throat culture pending. Symptoms likely viral etiology. Discussed physical exam findings. Advised supportive measures and signs/symptoms to go to the ER. Pt is appropriate for outpt treatment and f/u. Differential Diagnosis Differential diagnosis: Likely upper respiratory infection, sinusitis, viral infection and pharyngitis Lab Data Attestation: I reviewed the patient's lab results. Labs: Lab Results 12/18/24 12/18/24 Range/Units 11:20 11:59 POC Influenza A Ag Negative (Negative) POC Influenza B Ag Negative (Negative) POC SARS CoV-2 Ag Negative (Negative) POC Grp A Strep Screen Negative (Negative) Discharge Plan Discharge Clinical Impression: Upper respiratory infection Qualifiers: URI type: unspecified viral URI Qualified Code(s): J06.9 - Acute upper respiratory infection, unspecified Patient Disposition: Home Condition: Stable Instructions: Antibiotic Form, Upper Respiratory Infection (ED) Additional Instructions: Your rapid strep swab, COVID, and flu are negative today at [facility]. You will be notified in a few days if the culture comes back positive for strep, and appropriate antibiotics will be called in for you at that time. Your symptoms are likely due to a viral illness, which is not treated with antibiotics. Viral symptoms can be present for up to 10-14 days. Take Tylenol or ibuprofen for fever or pain. Follow the instructions on the bottle. Rest and stay hydrated. Follow up with your PCP in 3-5 days if symptoms are not improving. Go to the ER immediately if you develop difficulty breathing or swallowing Patient Language: Estonian Prescriptions: No Action albuterol sulfate 2.5 mg /3 mL (0.083 %) solution for nebulization albuterol sulfate 90 mcg/actuation HFA aerosol inhaler INHALATION lisdexamfetamine [Vyvanse] 40 mg capsule vilazodone 40 mg tablet metoprolol succinate 25 mg tablet extended release 24 hr PO Follow-up/Referrals: PHYSICIAN NOT ON STAFF,NONSTAFF [Primary Care Provider] - Time of Disposition: 12:12
[2024-12-18 12:01] LABS: EDCOVIDSCREEN Negative (Negative); EDINFLUASCREEN Negative (Negative); EDINFLUBSCREEN Negative (Negative)
--- OUTSIDE RECORDS SUMMARY | 2024-12-18 12:22 | XMS_ITS | Encounter Summary ---
Author Organization [facility] Address [address] [place] [address] Phone Care Team Providers Care Supervisor Purification Name Role Phone Loraine Williamson APRN, CNP Unavailable Loraine Williamson APRN, JONAS Primary Care P rovider Tania Patino APRN, ON SITE NURSE Unavailable [phone] Jer Vines MD Unavailable [phone] Willie Saenz MD Unavailable Rena Ding MD Unavailable Reason for Visit * Reason Comments Medication Refill Encounter Details Date Type Department Care Team (Late st Contact Info) Description 05/11/2023 Refill [facility] - Primary Care - [place] [address] [place] [address] Loraine Williamson APRN, ON SITE NURSE [address] [place] [address] Medication Refill Social History Tobacco [...] Sex Assigned at Female 07/09/2023 11:32 AM DERRICK WORKER WELL SERVICE Legal Sex Female 11:13 PM CDT Gender Identity Female 07/09/2023 11:32 AM DERRICK WORKER WELL SERVICE Sexual Orientation Not on file documented as of this encounter Miscellaneous Notes * Telephone Encounter - John Thmoas RN - 05/11/2023 8:23 AM CST Refill requested too soon. ICK WORKER WELL SERVICE documented in this encounter Plan of Treatment Upcoming Encounters Date Type Department Care Team (Late st Contact Info) Description 12/25/2024 3:00 PM CDT Office Visit [facility] Medical [facility] - Pulmonology & Sleep Medicine [facility] [address] [place] [address] Tania Patino APRN, ON SITE NURSE #2 [facility] [address] [place] [address] 12/28/2024 5:00 PM CDT [facility]ointment [facility] [address] [place] [address] Loraine Williamson, SLOT ROUTER, ON SITE NURSE [address] [place] [address] Discharge Disposition: Discharged to home or Selfcare 01/03/2025 1:30 PM CDT Office Visit [facility] Medical [facility] - Cardiology [facility] [address] [place] [address] Godwin Zarate MD [address] [address] 01/30/2025 11:00 AM CDT Office Visit [facility] - Primary Care - [place] [address] [place] [address] Loraine Williamson APRN, ON SITE NURSE [address] [place] [address] documented as of this encounter Visit Diagnoses Not on filedocumented in this encounter Additional Health Concerns Infection Onset Date Last Indicated Resolved Time COVID - 19 04/07/2024 04/07/2024 04/07/2024 11:5 0 AM DERRICK WORKER WELL SERVICE Respiratory Rule-Out 06/25/2024 06/25/2024 025 12:40 PM DERRICK WORKER WELL SERVICE COVID - 19 06/25/2024 06/25/2024 06/25/2024 12:4 5 PM DERRICK WORKER WELL SERVICE Influenza 06/25/2024 06/25/2024 07/02/2024 12:1 6 AM DERRICK WORKER WELL SERVICE documented as of this encounter Care Teams Supervisor Purification Relationship Specialty Start Date End Date Loraine Williamson APRN, ON SITE NURSE [address] [place] [address] PCP - General Advanced Practice Nurse 03/20/21 Loraine Williamson APRN, ON SITE NURSE [address] [place] [address] Nurse Practitioner Advanced Practice Nurse 02/26/21 Tania Patino APRN, ON SITE NURSE #[address] [address] Nurse Practitioner Advanced Practice Nurse 02/17/22 Jer Vines MD [address]2 [place] [address] Consulting Physician Neurology 05/25/22 Willie Saenz MD #[address] [address] Consulting Physician Colon and Rectal Surgery 07/12/23 Rena Ding MD #[address] [address] Consulting Physician Orthopaedic Surgery 07/03/24 documented as of this encounter
--- OUTSIDE RECORDS SUMMARY | 2024-12-18 12:22 | XMS_ITS | Encounter Summary ---
Author Organization [facility] Address [address] [place] [address] Phone Care Team Providers Care Medical Accounts Receivable Specialist Name Role Phone Loraine Williamson APRN, JONAS Unavailable Loraine Williamson APRN, TRAINING GENERALIST Primary Care P rovider Tania Patino APRN, TRAINING GENERALIST Unavailable [phone] Jer Vines MD Unavailable [phone] Willie Saenz MD Unavailable Rena Ding MD Unavailable Reason for Visit * Reason Comments Medication Refill Encounter Details Date Type Department Care Team (Late st Contact Info) Description 08/26/2023 Refill [facility] - Primary Care - [place] [address] [place] [address] Loraine Williamson APRN, TRAINING GENERALIST [address] [place] [address] Medication Refill Social History Tobacco Use Types Packs/Day Years Used Date Smoking Tobacco: Some Days Cigarettes Started: 2001 Smokeless Tobacco: Never Comments:Has one here and th ere. Last time bought a pack was 2020. Dose use vape Alcohol Use Standard Drinks/Week Comments Not Currently 0 (1 standard drink = 0.6 oz pur e alcohol) [facility] Utilities Answer Date Recorded In the past 12 months has th e electric, gas, oil, or water company threatened to shut off services in your home? No 07/07/2023 Social Connection and Isolation Panel Answer Date Recorded In a typical week, how many times do you talk on the phone with family, friends, or neighbors? More than three times a week 07/07/2023 How often do you get togethe r with friends or relatives? Twice a week 07/07/2023 How often do you attend chur ch or holiness services? Patient declined 07/07/2023 Do you belong to any clubs o r organizations such as hoahaoism groups, unions, fraternal or athletic groups, or [...] medical care, and heating? Patient declined 07/07/2023 [facility] Occupat ional Health - Occupational [...] place to sleep or slept in a nursing home (including now)? No 07/07/2023 Education Answer Date Recorded What is the highest level of school you have completed or the highest degree you have received? Some college, no degree 02/03/2022 Sexually Active Control Partners Comments Yes Male Comments No Sex and Gender Information Value Date Recorded Sex Assigned at Female 07/09/2023 11:32 AM COMPLIANCE PROFESSIONAL Legal Sex Female 11:13 PM CDT Gender Identity Female 07/09/2023 11:32 AM COMPLIANCE PROFESSIONAL Sexual Orientation Not on file documented as [...] 07/08/23 Office Visit Loraine Williamson APRN, JONAS [facility] Showing recent visits within past 365 [...] Description 12/25/2024 3:00 PM CDT Office Visit [facility] - Pulmonology & Sleep Medicine - [place] [address] [place] [address] Tania Patino APRN, JONAS [address]2 [facility] [address] [place] [address] 12/28/2024 5:00 PM CDT Appointment [facility] Cardiology Services [address] [place] [address] Loraine Williamson APRN, JONAS [address] [place] [address] Discharge Disposition: Discharged to home or Selfcare 01/03/2025 1:30 PM CDT Office Visit [facility] - Cardiology - [place] [address] [place] [phone] Godwin Zarate MD [address] [address] 01/30/2025 11:00 AM CDT Office Visit [facility] - Primary Care - [place] [address] [place] [address] Loraine Williamson APRN, TRAINING GENERALIST [address] [place] [address] documented as of this encounter Visit Diagnoses Not on filedocumented in this encounter Additional Health Concerns Infection Onset Date Last Indicated Resolved Time COVID - 19 04/07/2024 04/07/2024 04/07/2024 11:5 0 AM COMPLIANCE PROFESSIONAL Respiratory Rule-Out 06/25/2024 06/25/2024 025 12:40 PM COMPLIANCE PROFESSIONAL COVID - 19 06/25/2024 06/25/2024 06/25/2024 12:4 5 PM COMPLIANCE PROFESSIONAL Influenza 06/25/2024 06/25/2024 07/02/2024 12:1 6 AM COMPLIANCE PROFESSIONAL documented as of this encounter Care Teams Medical Accounts Receivable Specialist Relationship Specialty Start Date End Date Loraine Williamson APRN, JONAS [address] [place] [address] PCP - General Advanced Practice Nurse 03/20/21 Loraine Williamson APRN, TRAINING GENERALIST [address] [place] [address] Nurse Practitioner Advanced Practice Nurse 02/26/21 Tania Patino APRN, TRAINING GENERALIST #2 [facility] [address] [place] [address] Nurse Practitioner Advanced Practice Nurse 02/17/22 Jer Vines MD #2 [place] [address] Consulting Physician Neurology 05/25/22 Willie Saenz MD #2 [facility] [address] [place] [address] Consulting Physician Colon and Rectal Surgery 07/12/23 Rena Ding MD #2 [place] [address] Consulting Physician Orthopaedic Surgery 07/03/24 documented as of this encounter
--- OUTSIDE RECORDS SUMMARY | 2024-12-18 12:22 | XMS_ITS | Encounter Summary ---
Author Organization [facility] Address [address] [place] [address] Phone Care Team Providers Care Deliverer Food Name Role Phone Loraine Williamson APRN, CNP Unavailable Loraine Williamson APRN, DIRECTOR OF SEARCH ENGINE MARKETING Primary Care P rovider Tania Patino APRN, DIRECTOR OF SEARCH ENGINE MARKETING Unavailable [phone] Jer Vines MD Unavailable [phone] Willie Saenz MD Unavailable Rena Ding MD Unavailable Encounter Details Date Type Department Care Team (Late st Contact Info) Description 10/19/2024 Results Follow-Up [facility] - Primary Care - [place] [address] [place] [address] Loraine Williamson APRN, DIRECTOR OF SEARCH ENGINE MARKETING [address] [place] [address] HOLTER MONITOR RECORDING & ANALYSIS-48 HOUR, CMP (COMPREHENSIVE METABOLIC PANEL), LIPID PANEL, Additional followed-up results: 4 Social History Tobacco Use Types Packs/Day Years Used Date Smoking Tobacco: Some Days Cigarettes Started: 2001 Smokeless Tobacco: Never Comments:Has one here and th ere. Last time bought a pack was 2020. Dose use vape Alcohol Use Standard Drinks/Week Comments Not Currently 0 (1 standard drink = 0.6 oz pur e alcohol) [facility] Utilities Answer Date Recorded In the [...] 07/07/2023 How often do you attend chur or sabianist services? Patient declined 07/07/2023 Do you belong to any clubs o r organizations such as judaism groups, unions, fraternal or athletic groups, or [...] medical care, and heating? Patient declined 07/07/2023 PHQ-2 Answer Date Recorded Total Score - Questions 1-9 0 06/2024 [facility] of Occupat ional Health - Occupational Stress [...] place to sleep or slept in a group home (including now)? No 07/07/2023 Education Answer Date Recorded What is the highest level of school you have completed or the highest degree you have received? Some college, no degree 02/03/2022 Sexually Active Control Partners Comments Yes Male Comments No Sex and Gender Information Value Date Recorded Sex Assigned at Female 07/09/2023 11:32 AM LIGHTING ENGINEER Legal Sex Female 11:13 PM CDT Gender Identity Female 07/09/2023 11:32 AM LIGHTING ENGINEER Sexual Orientation Not on file documented as of this encounter Miscellaneous Notes * Telephone Encounter - Loraine Williamson APRN, CNP - 11/06/2024 10:08 AM CDT You cannot see the C-Spine on MRI BRAIN or CT Head/Brain * Telephone Encounter - Loraine Williamson APRN, DIRECTOR OF SEARCH ENGINE MARKETING - 11/01/2024 12:21 PM CDT Depends where at exactly and how severe . documented in this encounter Plan of Treatment Upcoming Encounters Date Type Department Care Team (Late st Contact Info) Description 12/25/2024 3:00 PM CDT Office Visit [facility] - Pulmonology & Sleep Medicine [facility] [address] [place] [address] Tania Patino APRN, JONAS [address] [address] 12/28/2024 5:00 PM CDT Appointment [facility] Cardiology Services [address] [place] [address] Loraine Williamson APRN, CNP [address] [place] [address] Discharge Disposition: Discharged to home or Selfcare 01/03/2025 1:30 PM CDT Office Visit [facility] - Cardiology - [place] [address] [place] [phone] Godwin Zarate MD [address] [address] 01/30/2025 11:00 AM CDT Office Visit [facility] - Primary Care - [place] [address] [place] [address] Loraine Williamson APRN, DIRECTOR OF SEARCH ENGINE MARKETING [address] [place] [place] [address] documented as of this encounter Visit Diagnoses Not on filedocumented in this encounter Additional Health Concerns Assessment Noted Time PHQ-9 Depression Total Score: 0 10/03/19 25 11:03 AM CDT documented as of this encounter Care Teams Deliverer Food Relationship Specialty Start Date End Date Loraine Williamson APRN, DIRECTOR OF SEARCH ENGINE MARKETING [address] [place] [address] PCP - General Advanced Practice Nurse 03/20/21 Loraine Williamson APRN, DIRECTOR OF SEARCH ENGINE MARKETING [address] [place] [address] Nurse Practitioner Advanced Practice Nurse 02/26/21 Tania Patino APRN, DIRECTOR OF SEARCH ENGINE MARKETING #2 [facility] [address] [place] [address] Nurse Practitioner Advanced Practice Nurse 02/17/22 Jer Vines MD #2 [place] [address] Consulting Physician Neurology 05/25/22 Willie Saenz MD #2 [facility] [address] [place] [address] Consulting Physician Colon and Rectal Surgery 07/12/23 Rena Ding MD #2 [facility] [address] [place] [address] Consulting Physician Orthopaedic Surgery 07/03/24 documented as of this encounter
--- OUTSIDE RECORDS SUMMARY | 2024-12-18 12:22 | XMS_ITS | Clinical Summary ---
Author Organization [facility] Address [address] [place] [address] Phone Care Team Providers Care Crtt Name Role Phone Loraine Williamson APRN, JONAS Unavailable Loraien Williamson APRN, JONAS Primary Care P rovider Tania Patino APRN, OSTEOLOGIST Unavailable Jer Vines MD Unavailable [phone] Willie Saenz MD Unavailable Rena Ding MD Unavailable Allergies Active Allergy Reactions Criticality Noted Date Comments Amoxicillin-Pot Clavulanate Swelling 01/28/20 Cefadroxil Swelling 07/20/2016 Cephalosporins Swelling 01/27/2021 Penicillins Swelling 01/27/2021 Medications Cetirizine HCl (ZYRTEC PO) Take by mouth. Act flako levonorgestrel (Mirena, 52 MG,) 20 MCG/DAY IUD 1 Intra Uterine Device by Intrauterine route once. Active SUMAtriptan (IMITREX) 20 MG/ACT Solution [place] the entire contents of one sprayer into a nostril soon after the onset of a migraine headache. A second dose may be prayed into the other notrsil after at least 2 hours if the headache persists. Use no more than 2 sprays in a day. 8 Each 1 3 Active Vyvanse 20 MG Capsule 3 Active Vilazodone HCl 40 MG Tablet Take 40 mg by mouth daily. 4 Active albuterol 108 (90 Base) MCG/ACT Aerosol SolutionIndicati ons:Moderate persistent asthma without complication take 2 Puffs by inhalation every 4 hours as needed for Wheezing. 18 g 1 4 Active albuterol (PROVENTIL, VENTOLIN) (2.5 MG/3ML) 0.083% Nebulizer SolnIndications: Moderate persistent asthma with acute exacerbation 3 mL by Nebulization route every 4 hours as needed for Wheezing, Shortness of Breath or Cough. 150 mL 5 Active metoprolol Succinate (TOPROL-XL) 25 MG TABLET SR 24 HRIndications:II H (idiopathic intracranial hypertension),Ta chycardia Take 0.5 Tablets by mouth daily. 45 Tablet 1 5 Active budesonide-formo terol fumarate (Symbicort) 160-4.5 MCG/ACT AerosolIndicatio ns:Moderate persistent asthma without complication take 2 Puffs by inhalation 2 times daily. 60.6 g 1 5 Active Active Problems Problem Noted Date Diagnosed Date Vasovagal syncope 10/30/2024 IIH (idiopathic intracranial hypertension) 10/30 Moderate persistent asthma without complication 10/30/2024 Tachycardia 10/30/2024 Oral thrush 10/30/2024 Episodic mood disorder 06/16/2022 Suspected sleep apnea 02/17/2022 Class 3 severe obesity due t o excess calories without serious comorbidity with body mass index (BMI) of 40.0 to 44.9 in adult 02/17/2022 Excessive daytime sleepiness 02/17/2022 Snoring 02/17/2022 Hepatitis C antibody test positive 09/21/2016 Herpes infection 09/21/2016 History of drug abuse 09/21/2016 Encounters Date Type Department Care Team Description 12/06/2024 Telephone [facility] [address] [address] Loraine Williamson, SAS SQL DEVELOPER, OSTEOLOGIST Results 10/30/2024 1:50 PM CDT Lab [facility] [place] [facility] [place] [facility] [address] Lab, [facility] (Adult); Excessive daytime sleepiness Discharge Disposition: Discharged to home or Selfcare 10/30/2024 1:00 PM CDT Office Visit [facility] [place] [facility] [place] [facility] [phone] Loraine Williamson APRN, CNP Vasovagal syncope (Primary Dx); IIH (idiopathic intracranial hypertension); Moderate persistent asthma without complication; Tachycardia; Oral thrush Discharge Disposition: Discharged to home or Selfcare 10/30/2024 Travel 10/19/2024 Results Follow-Up [facility] [place] [facility] [place] [address] Loraine Williamson APRN, CNP HOLTER MONITOR RECORDING & ANALYSIS-48 HOUR, CMP (COMPREHENSIVE METABOLIC PANEL), LIPID PANEL, Additional followed-up results: 4 10/06/2024 1:30 PM CDT - 10/06/2024 11:59 PM CDT Hospital Encounter [facility] [address] [place] [address] Loraine Williamson APRN, CNP Discharge Disposition: Discharged to home or Selfcare 10/06/2024 Travel 10/06/2024 [facility] [address] [place] [phone] Loraine Williamson APRN, CNP Prior Authorization (Symbicort 80/4.5MCG) 10/02/2024 10:45 AM CDT Office Visit [facility] [place] [address] [place] [phone] Loraine Williamson APRN, CNP IIH (idiopathic intracranial hypertension) (Primary Dx); Moderate persistent asthma without complication; Tachycardia; [facility] (Adult); Excessive daytime sleepiness; YONATHAN (obstructive sleep apnea); Dizziness Discharge Disposition: Discharged to home or Selfcare 10/02/2024 MyChart RX Renewal [facility] [address] [place] [address] Loraine Williamson APRN, CNP Medication Renewal Declined 10/02/2024 Travel from Last 3 Months Immunizations Immunization Administration Dates Next Due Covid-19, Mrna, Lnp-s, Pf, 1 00 Mcg Or 50 Mcg Dose (MODERNA) 04/29/2021 TDAP Vaccine 03/20/2020,09/04/2016 Family History Medical History Relation Name Comments Rheumatoid Arthritis Father No Known Problems Half-Sister 1 No Known Problems Half-Sister 2 No Known Problems Half-Sister 3 Cancer Maternal Grandmother Pancrea tic Multiple Sclerosis Mother Osteoporosis Mother Parkinsonism Paternal Grandmother Qhwz-Osszfvbif-Xrjnw Syndrome Paternal Grandmother ADD / ADHD Son [...] Tobacco: Never Tobacco Cessation:Ready to Q uit: No; Counseling Given: No Comments:Has one here and there. Last time bought a pack was 2020. Dose use vape Alcohol Use Standard Drinks/Week Comments Not Currently 0 (1 standard drink = 0.6 oz pur e alcohol) [facility] Utilities Answer Date Recorded In the past 12 months has [employer], gas, oil, or water [employer] threatened to shut off services in your [...] often do you attend chur ch or jehovah's witness services? Patient declined 07/07/2023 Do you belong to any clubs o r organizations such as evangelical groups, unions, fraternal or athletic groups, or [...] Total Score - Questions 1-9 0 06/2024 [facility] - [...] place to sleep or slept in a retirement (including now)? No 07/07/2023 Education Answer Date Recorded What is the highest level of school you have completed or the highest degree you have received? Some college, no degree 02/03/2022 Sexually Active Control Partners Comments Yes Male Comments No Sex and Gender Information Value Date Recorded Sex Assigned at Female 07/09/2023 11:32 AM RFP WRITER Legal Sex Female 11:13 PM CDT Gender Identity Female 07/09/2023 11:32 AM RFP WRITER Sexual Orientation Not on file Last Filed Vital Signs Vital Sign Reading Time Taken Comments Blood Pressure 126/66 10/30/2024 12:59 PM CDT Pulse 106 10/30/2024 12:59 PM CDT Temperature 36.6 C (97.9 F) 10/30/2024 12:59 PM CDT Respiratory Rate 18 10/30/2024 12:59 PM CDT Oxygen Saturation 97% 10/30/2024 12:59 PM CDT Inhaled Oxygen Concentration - - Weight 77.6 kg (171 lb) 10/30/2024 12:59 PM CDT Height 154.9 cm (5' 1) 10/30/2024 12:59 PM CDT Body Mass Index 32.31 10/30/2024 12:59 PM CDT Plan of Treatment Upcoming Encounters Date Type Department Care Team (Late st Contact Info) Description 12/25/2024 3:00 PM CDT [facility] [address] [place] [address] Tania Patino, SAS SQL DEVELOPER, OSTEOLOGIST [address] [address] 12/28/2024 5:00 PM CDT [facility] [address] [place] [phone] Loraine Williamson APRN, OSTEOLOGIST [address] [place] [address] Discharge Disposition: Discharged to home or Selfcare 01/03/2025 1:30 PM CDT Office Visit [facility] Cardiology [facility] [address] [place] [phone] Godwin Zarate MD [address] [address] 01/30/2025 11:00 AM CDT Office Visit [facility] [place] [address] [place] [phone] Loraine Williamson APRN, OSTEOLOGIST [address] [place] [address] Health Maintenance Due Date Last Done Comments Hepatitis C Virus (HCV) Screening 1990 Hepatitis B Immunization (1 of 3 - 19+ 3-dose series) 2009 Pneumococcal Immunization Combined (1 of 2 - PCV) 2009 Human Papillomavirus (HPV) Immunization (1 - 3-dose SCDM series) 2017 Pap Smear 09/05/2019 09/04/2016 Cervical Cancer Screening (CCS) 2020 HPV/Cotest 2020 SARS-COV-2 Immunization (2 - season) 2024 04/29/2021 Influenza Immunization (#1) 2025 Td Immunization Every 10 Yea rs (Adults With 1 Tdap) 03/20/2030 03/20/2020, 09/04/2016 Respiratory Syncytial Virus (RSV) Immunization (Adult) (1 - 1-dose 75+ series) 2065 DTaP/Tdap/Td Immunization Discontinued 2019, 09/04/2016 Meningococcal Immunization (ACWY) Aged Out No longer eligible based on patient's age to complete this topic Rotavirus Immunization Aged Out No lo nger eligible based on patient's age to complete this topic Procedures Procedure Name Priority Date/Time Associated Diagnosis Comments OPTOMETRY CONSULT 11/13/2024 12: 00 AM CDT THYROID SCREEN WITH REFLEX Routine 10/30/2024 1:57 PM CDT [facility] care (Adult) CBC WITH AUTO DIFFERENTIAL Routine 10/30/2024 1:57 PM CDT [facility] (Adult) FOLIC ACID (FOLATE) Routine 10/30/2024 1 :57 PM CDT Excessive daytime sleepiness VITAMIN B12 Routine 10/30/2024 1:57 PM CDT Excessive daytime sleepiness HEMOGLOBIN A1C W/ ESTIMATED GLUCOSE Routine 10/30/2024 1:57 PM CDT [facility] (Adult) THYROID SCREEN WITH REFLEX Routine 10/30/2024 1:57 PM CDT [facility] care (Adult) LIPID PANEL Routine 10/30/2024 1:57 PM CDT [facility] care (Adult) CMP (COMPREHENSIVE METABOLIC PANEL) Routine 10/30/2024 1:57 PM CDT [facility] care (Adult) COMPLETE BLOOD COUNT (CBC) WITH DIFF Routine 10/30/2024 1:57 PM CDT Preventative health care (Adult) HOLTER MONITOR RECORDING 48 HOUR Routine 10/06/2024 1:44 PM CDT Dizziness from Last 3 Months Results * OPTOMETRY CONSULT (11/13/2024 12:00 AM CDT) 11/13/2024 us Provider Scan GENERIC SCAN ORDERS CONSULT Shelby l Result SCAN * THYROID SCREEN WITH REFLEX (10/30/2024 1:57 PM CDT) TSH 1.227 0.300 - 5.000 mIU/L 10/30/2024 5:48 PM CDT [facility] Blood Venipuncture / Unknown 10/30/2024 1:57 PM CDT 10/30/2024 1:57 PM CDT Loraine Williamson APRN, OSTEOLOGIST CHEMISTRY ORDER LIZA Final Result Performing Organization Address [facility] Co de Phone Number [facility] [address] [place] [address] * HEMOGLOBIN A1C W/ ESTIMATED GLUCOSE (10/30/2024 1:57 PM CDT) HGB-A1C 4.9 4.0 - 6.0 % 10/30/2024 3:17 PM CDT [facility] Est Average Glucose 93.9 mg/dL 10/30/2024 3:17 PM CDT [facility] Blood Venipuncture / Unknown 10/30/2024 1:57 PM CDT 10/30/2024 1:57 PM CDT Narrative [facility] - 10/30/2024 3:17 PM CDT HEMOGLOBIN A1C: DIABETIC PATIENTS: WELL-CONTROLLED: 6.2 - 7.0 INTERMEDIATE WELL-CONTROLLED: 7.0 - 9.0 POORLY-CONTROLLED: >9.0 Specimens containing greater than 5% of Hemoglobin F may result in lower than expected % HbA1C results. us Loraine Williamson APRN, OSTEOLOGIST CHEMISTRY ORDER LIZA Final Result Performing Organization Address City/[facility]/ZIP Co de Phone Number [facility] [address] [place] [address] * (ABNORMAL) CBC WITH AUTO DIFFERENTIAL (10/30/2024 1:57 PM CDT) [facility] WBC 11.21 4.00 - 12.00 10(3)/mcL 10/30/2024 3:42 PM CDT [facility] RBC 4.52 3.80 - 5.30 10(6)/mcL 10/30/2024 3:42 PM CDT [facility] HEMOGLOBIN (HGB) 14.3 12.0 - 15.8 g/dL 10/30/2024 3:42 PM CDT [facility] HEMATOCRIT (HCT) 41.4 36.0 - 47.0 % 10/30/2024 3:42 PM CDT [facility] MCV 91.6 82.0 - 96.0 fL 10/30/2024 3:42 PM CDT [facility] MCH 31.6 26.0 - 34.0 pg 10/30/2024 3:42 PM CDT [facility] MCHC 34.5 31.0 - 36.0 g/dL 10/30/2024 3:42 PM CDT [facility] PLATELET COUNT 326 140 - 440 10(3)/mcL 10/30/2024 3:42 PM CDT [facility] RDW 12.1 11.8 - 15.5 % 10/30/2024 3:42 PM CDT [facility] MPV 10.0 9.7 - 12.4 fL 10/30/2024 3:42 PM CDT [facility] NEUTROPHILS 66.7 47.0 - 73.0 % 10/30/2024 3:42 PM CDT [facility] LYMPHOCYTES 24.2 18.0 - 42.0 % 10/30/2024 3:42 PM CDT [facility] MONOCYTES 5.4 4.0 - 12.0 % 10/30/2024 3:42 PM CDT [facility] EOSINOPHILS 2.4 0.0 - 5.0 % 10/30/2024 3:42 PM CDT [facility] BASOPHILS 0.9 0.0 - 1.0 % 10/30/2024 3:42 PM CDT [facility] IMMATURE GRANULOCYTE 0.4 0.0 - 0.4 % 10/30/2024 3:42 PM CDT [facility] Comment:Immature Granulocyte s includes Metamyelocytes, Myelocytes, and Promyelocytes. ABSOLUTE NEUTROPHILS 7.49 1.60 - 7.70 10(3)/mcL 10/30/2024 3:42 PM CDT [facility] ABSOLUTE LYMPHOCYTES 2.71 1.30 - 3.20 10(3)/mcL 10/30/2024 3:42 PM CDT [facility] ABSOLUTE MONOCYTES 0.60 0.20 - 1.00 10(3)/mcL 10/30/2024 3:42 PM CDT [facility] ABSOLUTE EOSINOPHIL 0.27 0.00 - 0.40 10(3)/mcL 10/30/2024 3:42 PM CDT [facility] ABSOLUTE BASOPHILS 0.10 0.00 - 0.10 10(3)/mcL 10/30/2024 3:42 PM CDT [facility] ABSOLUTE IMMATURE GRANULOCYTE 0.04(H) 0.00 - 0.03 10 (3) mcL. 10/30/2024 3:42 PM CDT [facility] NRBC PER 100 WBC 0 10/31/19 25 3:42 PM CDT [facility] Blood Venipuncture / Unknown 10/30/2024 1:57 PM CDT 10/30/2024 1:57 PM CDT us Loraine Williamson APRN, JONAS HEMATOLOGY ORDE ALIREZA Final Result [facility] [address] [place] [address] * VITAMIN B12 (10/30/2024 1:57 PM CDT) Pathologist [facility] VITAMIN B12 483 213 - 816 pg/mL 10/30/2024 3:56 PM CDT [facility] Blood Venipuncture / Unknown 10/30/2024 1:57 PM CDT 10/30/2024 1:57 PM CDT us Loraine Williamson APRN, OSTEOLOGIST CHEMISTRY ORDER LIZA Final Result [facility] [address] [place] [address] * (ABNORMAL) LIPID PANEL (10/30/2024 1:57 PM CDT) Pathologist [facility] CHOLESTEROL 149 <200 mg/dL 10/30/2024 3:24 PM CDT [facility] TRIGLYCERIDES 80 <150 mg/dL 10/30/2024 3:24 PM CDT [facility] HDL CHOLESTEROL 38(L) >40 mg/dL 3:24 PM CDT [facility] LDL 95 <130 mg/dL 10/30/2024 3:24 PM CDT [facility] VLDL 16 10 - 50 mg/dL 10/30/2024 3:24 PM CDT [facility] CHOL/HDL RATIO 3.9 0.0 - 4.4 10/30/2024 3:24 PM CDT [facility] NON-HDL CHOLESTEROL 111 <130 mg/dL 10/30/2024 3:24 PM CDT [facility] IS THE PATIENT REQUIRED TO BE FASTING? Yes 10/30/2024 3:24 PM CDT [facility] HAS THE PATIENT BEEN FASTING? Yes 10/30/2024 3:24 PM CDT [facility] Blood Venipuncture / Unknown 10/30/2024 1:57 PM CDT 10/30/2024 1:57 PM CDT Loraine Williamson APRN, JONAS CHEMISTRY ORDER LIZA Final Result [facility] [address] [place] [address] * FOLIC ACID (FOLATE) (10/30/2024 1:57 PM CDT) [facility] FOLATE 14.5 7.0 - 31.4 ng/mL 10/30/2024 3:56 PM CDT [facility] IS THE PATIENT REQUIRED TO BE FASTING? No 10/30/2024 3:56 PM CDT [facility] Blood Venipuncture / Unknown 10/30/2024 1:57 PM CDT 10/30/2024 1:57 PM CDT Loraine Williamson APRN, JONAS CHEMISTRY ORDER LIZA Final Result Performing Organization Address City/[facility] Co de Phone Number [facility] [address] [place] [address] * (ABNORMAL) CMP (COMPREHENSIVE METABOLIC PANEL) (10/30/2024 1:57 PM CDT) [facility] SODIUM 138 136 - 145 mmol/L 10/30/2024 3:24 PM CDT [facility] POTASSIUM 4.1 3.5 - 5.1 mmol/L 10/30/2024 3:24 PM CDT [facility] CHLORIDE 109(H) 98 - 107 mmol/L 10/30/2024 3:24 PM CDT [facility] CO2, VENOUS 23 22 - 30 mmol/L 10/30/2024 3:24 PM CDT [facility] ANION GAP 10.1 <18.0 mmol/L 10/30/2024 3:24 PM CDT [facility] GLUCOSE 83 70 - 99 mg/dL 10/30/2024 3:24 PM CDT [facility] BUN 9 5 - 18 mg/dL 10/30/2024 3:24 PM CDT [facility] CREATININE, BLOOD 0.66 0.60 - 1.00 mg/dL 10/30/2024 3:24 PM T [facility] BUN/CREATININE RATIO 14 12 - 20 ratio 10/30/2024 3:24 PM T [facility] TOTAL PROTEIN 7.4 6.0 - 8.0 g/dL 10/30/2024 3:24 PM CDT [facility] ALBUMIN 4.4 3.5 - 5.0 g/dL 10/30/2024 3:24 PM CDT [facility] A/G RATIO 1.5 1.0 - 2.2 10/30/2024 3:24 PM CDT [facility] CALCIUM 8.9 8.7 - 10.5 mg/dL 10/30/2024 3:24 PM T [facility] T BILI 0.7 0.2 - 1.2 mg/dL 10/30/2024 3:24 PM CDT [facility] SGOT (AST) 21 <43 U/L 10/30/2024 3:[address] [facility] SGPT (ALT) 12 <56 U/L 10/30/2024 3:[address] [facility] ALKALINE PHOSPHATASE 53 40 - 150 U/L 10/30/2024 3:[address] [facility] IS THE PATIENT REQUIRED TO BE FASTING? No 10/30/2024 3:[address] [facility] HAS THE PATIENT BEEN FASTING? Yes 10/30/2024 3:24 PM CDT [facility] GFR, ESTIMATED >60 >=60 10/30/2024 3:[address] [facility] Comment: Creatinine Clearance is the preferred criteria for selecting drug dose adjustments in renally impaired patients. The GFR is provided as additional pertinent clinical information. GFR is reported in mL/min/1.73 sq m. Calculation based on the Chronic Kidney Disease Epidemiology Collaboration (CKD- EPI) equation refit without adjustment for race. GFR, EST. >60 >=60 025 3:24 PM CDT [facility] GFR, EST. NONAFRICAN >60 >=60 10/30/2024 3:24 PM CDT [facility] Blood Venipuncture / Unknown 10/30/2024 1:57 PM CDT 10/30/2024 1:57 PM CDT Loraine Williamson SAS SQL DEVELOPERJONAS CHEMISTRY ORDER LIZA Final Result [facility] [address] [place] [address] * HOLTER MONITOR RECORDING & ANALYSIS-48 HOUR (10/06/2024 1:44 PM CDT) Anatomical Region Laterality Modality CARDIO N/A Electrocardiogra phy Narrative 10/19/2024 1:53 PM CDT HOLTER MONITOR REPORT: Patient name: Yanci Charles Patient : 1990 Patient Age: 33 y.o. Indication: Dizziness Requesting provider: Loraine Williamson, Study Duration: Prescribed period 3 days , Interpretable data 2 days 32 mins Summary: Minimum HR: 60 BPM Average HR: 96 BPM Maximum HR 157 BPM 1. Atrial ectopy / premature atrial complexes (PAC) - 3 supraventricular ectopic beats occurred (<1 % of complexes) mainly as isolated ectopy. 2. Ventricular ectopy / premature ventricular complexes (PVC) - 2 ventricular ectopic beats occurred (<1 % of complexes) mainly as isolated ectopy. 3. No significant bradycardia or pauses occurred. 4. Atrial fibrillation/flutter was not detected Manually Triggered events: There were no manually triggered events. Other tracings mainly demonstrated sinus rhythm. Conclusion: No sustained arrhythmias. Procedure Note Jesus Soto MD - 10/19/2024 HOLTER MONITOR REPORT: Patient name: Yanci Charles Patient : 1990 Patient Age: 33 y.o. Indication: Dizziness Requesting provider: Loraine Williamson, Study Duration: Prescribed period 3 days , Interpretable data 2 days 32 mins Summary: Minimum HR: 60 BPM Average HR: 96 BPM Maximum HR 157 BPM 1. Atrial ectopy / premature atrial complexes (PAC) - 3supraventricular ectopic beats occurred (<1 % of complexes) mainly asisolated ectopy. 2. Ventricular ectopy / premature ventricular complexes (PVC) - 2ventricular ectopic beats occurred (<1 % of complexes) mainly as isolatedectopy. 3. No significant bradycardia or pauses occurred. 4. Atrial fibrillation/flutter was not detected Manually Triggered events: There were no manually triggered events. Other tracings mainly demonstrated sinus rhythm. Conclusion: No sustained arrhythmias. us Loraine Williamson APRN, CNP IMG ECG ORDERAB LES Final Result from Last 3 Months Insurance MEDICAID [employer] Care Teams Crtt Relationship Specialty Start Date End Date Loraine Williamson APRN, CNP [address] [place] [address] PCP - General Advanced Practice Nurse 03/20/21 Loraine Williamson APRN, CNP [address] [place] [address] Nurse Practitioner Advanced Practice Nurse 02/26/21 Tania Patino APRN, JONAS [address] [facility] [address] [place] [address] Nurse Practitioner Advanced Practice Nurse 02/17/22 Jer Vines MD [address] [place] [address] Consulting Physician Neurology 05/25/22 Willie Saenz MD [address] [facility] [address] [place] [address] Consulting Physician Colon and Rectal Surgery 07/12/23 Rena Ding MD [address] [facility] [address] [place] [address] Consulting Physician Orthopaedic Surgery 07/03/24
--- OUTSIDE RECORDS SUMMARY | 2024-12-18 12:22 | XMS_ITS | Encounter Summary ---
Author Organization [facility] Address [address] [place] [address] Phone Care Team Providers Care Stock Turner Name Role Phone Loraine Williamson APRN, CNP Unavailable Loraine Williamson APRN, JONAS Primary Care P rovider Tania Patino APRN, CUTTER ALUMINUM SHEET Unavailable [phone] Jer Vines MD Unavailable [phone] Willie Saenz MD Unavailable Rena Ding MD Unavailable Reason for Visit * Reason Comments Medication Refill Encounter Details Date Type Department Care Team (Late st Contact Info) Description 02/05/2023 Refill [facility] - Primary Care - [place] [address] [place] [address] Loraine Williamson APRN, CUTTER ALUMINUM SHEET [address] [place] [address] Medication Refill Social History Tobacco [...] Sex Assigned at Female 07/09/2023 11:32 AM FOCUSED FACTORY MANAGER Legal Sex Female 11:13 PM CDT Gender Identity Female 07/09/2023 11:32 AM FOCUSED FACTORY MANAGER Sexual Orientation Not on file documented [...] Description 12/25/2024 3:00 PM CDT Office Visit [facility] - Pulmonology & Sleep Medicine [facility]3] #2 [place] [address] Tania Patino APRN, CUTTER ALUMINUM SHEET #[address] [address] 12/28/2024 5:00 PM CDT [facility] 1 [place] [address] Loraine Williamson APRN, CUTTER ALUMINUM SHEET [address] [place] [address] Discharge Disposition: Discharged to home or Selfcare 01/03/2025 1:30 PM CDT Office Visit [facility] Medical [facility] - Cardiology [facility]3] #2 [place] [address] Godwin Zarate MD [address] [address] 01/30/2025 11:00 AM CDT [facility] Primary Care - [place] [address] [place] [address] Loraine Williamson APRN, JONAS [address] [place] [address] documented as of this encounter Visit Diagnoses Not on filedocumented in this encounter Additional Health Concerns Infection Onset Date Last Indicated Resolved Time COVID - 19 04/07/2024 04/07/2024 04/07/2024 11:5 0 AM FOCUSED FACTORY MANAGER Respiratory Rule-Out 06/25/2024 06/25/2024 025 12:40 PM FOCUSED FACTORY MANAGER COVID - 19 06/25/2024 06/25/2024 06/25/2024 12:4 5 PM FOCUSED FACTORY MANAGER Influenza 06/25/2024 06/25/2024 07/02/2024 12:1 6 AM FOCUSED FACTORY MANAGER documented as of this encounter Care Teams Stock Turner Relationship Specialty Start Date End Date Loraine Williamson APRN, JONAS [address] [place] [address] PCP - General Advanced Practice Nurse 03/20/21 Loraine Williamson APRN, CUTTER ALUMINUM SHEET [address] [place] [address] Nurse Practitioner Advanced Practice Nurse 02/26/21 Tania Patino APRN, CUTTER ALUMINUM SHEET #[facility] [address] Nurse Practitioner Advanced Practice Nurse 02/17/22 Jer Vines MD #2 [place] [address] Consulting Physician Neurology 05/25/22 Willie Saenz MD #[address] [facility] [address] [address] Consulting Physician Colon and Rectal Surgery 07/12/23 Rena Ding MD #[address] [facility] [address] [address] Consulting Physician Orthopaedic Surgery 07/03/24 documented as of this encounter
--- OUTSIDE RECORDS SUMMARY | 2024-12-18 12:22 | XMS_ITS | Encounter Summary ---
Author Organization [facility] Address [address] [place] [address] Phone Care Team Providers Care Business Liaison Manager Name Role Phone Loraine Williamson APRN, CNP Unavailable Loraine Williamson APRN, JONAS Primary Care P rovider Tania Patino APRN, HIDES SOAKER Unavailable [phone] Jer Vines MD Unavailable [phone] Willie Saenz MD Unavailable Rena Ding MD Unavailable Reason for Visit * Reason Comments Medication Refill Encounter Details Date Type Department Care Team (Late st Contact Info) Description 05/04/2024 Refill [facility] - Primary Care - [place] [address] [place] [address] Loraine Williamson APRN, HIDES SOAKER [address] [place] [address] Medication Refill Social History Tobacco Use Types Packs/Day Years Used Date Smoking Tobacco: Some Days Cigarettes Started: 2001 Smokeless Tobacco: Never Comments:Has one here and th ere. Last time bought a pack was 2020. Dose use vape Alcohol Use Standard Drinks/Week Comments Not Currently 0 (1 standard drink = 0.6 oz pur e alcohol) [facility] Utilities Answer Date Recorded In the [...] often do you attend chur ch or baptist services? Patient declined 07/07/2023 Do you belong to any clubs o r organizations such as adventist groups, unions, fraternal or athletic groups, or [...] medical care, and heating? Patient declined 07/07/2023 [facility] - Occupational [...] place to sleep or slept in a usp (including now)? No 07/07/2023 Education Answer Date Recorded What is the highest level of school you have completed or the highest degree you have received? Some college, no degree 02/03/2022 Sexually Active Control Partners Comments Yes Male Comments No Sex and Gender Information Value Date Recorded Sex Assigned at Female 07/09/2023 11:32 AM RUBBER GOODS TESTER Legal Sex Female 11:13 PM CDT Gender Identity Female 07/09/2023 11:32 AM RUBBER GOODS TESTER Sexual Orientation Not on file documented as of this encounter Miscellaneous Notes * Telephone Encounter - Margarita Nicole RN - 05/04/2024 9:45 AM CST Duplicate request. ER GOODS TESTER documented in this encounter Plan of Treatment Upcoming Encounters Date Type Department Care Team (Late st Contact Info) Description 12/25/2024 3:00 PM CDT Office Visit [facility] - Pulmonology & Sleep Medicine - [place] [address] [place] [address] Tania [place] APRN, HIDES SOAKER #2 [facility] [address] [place] [address] 12/28/2024 5:00 PM CDT [facility] 1 [place] [address] Loraine Williamson APRN, JONAS [address] [place] [address] Discharge Disposition: Discharged to home or Selfcare 01/03/2025 1:30 PM CDT Office Visit [facility] Card[facility] - [place] #2 [place] [address] oGdwin Zarate MD 2 [facility] [address] [place] [address] 01/30/2025 11:00 AM CDT Office Visit [facility] - Primary Care - [place] [address] [place] [address] Loraine Williamson APRN, JONAS [address] [place] [address] documented as of this encounter Visit Diagnoses Not on filedocumented in this encounter Additional Health Concerns Infection Onset Date Last Indicated Resolved Time Respiratory Rule-Out 06/25/2024 06/25/2024 025 12:40 PM RUBBER GOODS TESTER COVID - 19 06/25/2024 06/25/2024 06/25/2024 12:4 5 PM RUBBER GOODS TESTER Influenza 06/25/2024 06/25/2024 07/02/2024 12:1 6 AM RUBBER GOODS TESTER documented as of this encounter Care Teams Business Liaison Manager Relationship Specialty Start Date End Date Loraine Williamson APRN, HIDES SOAKER [address] [place] [address] PCP - General Advanced Practice Nurse 03/20/21 Loraine Williamson APRN, HIDES SOAKER [address] [place] [address] Nurse Practitioner Advanced Practice Nurse 02/26/21 Tania Patino APRN, HIDES SOAKER #[address] [address] Nurse Practitioner Advanced Practice Nurse 02/17/22 Jer Vines MD #2 [place] [address] Consulting Physician Neurology 05/25/22 Willie Saenz MD #[address] [address] Consulting Physician Colon and Rectal Surgery 07/12/23 Rena Ding MD #[address] [address] Consulting Physician Orthopaedic Surgery 07/03/24 documented as of this encounter
--- OUTSIDE RECORDS SUMMARY | 2024-12-18 12:22 | XMS_ITS | Encounter Summary ---
Author Organization [facility] Address [address] [place] [address] Phone Care Team Providers Care Construction Engineering Manager Name Role Phone Loraine Williamson APRN, CNP Unavailable Loraine Williamson APRN, JONAS Primary Care P rovider Tania Patino APRN, TEACHER SPECIALIST Unavailable [phone] Jer Vines MD Unavailable [phone] Willie Saenz MD Unavailable Rena Ding MD Unavailable Reason for Visit * Reason Comments Medication Refill Encounter Details Date Type Department Care Team (Late st Contact Info) Description 02/21/2022 Refill [facility] - Primary Care - [place] [address] [place] [address] Loraine Williamson APRN, TEACHER SPECIALIST [address] [place] [address] Medication Refill Social History Tobacco [...] Sex Assigned at Female 07/09/2023 11:32 AM REPLENISHMENT ANALYST Legal Sex Female 11:13 PM CDT Gender Identity Female 07/09/2023 11:32 AM REPLENISHMENT ANALYST Sexual Orientation Not on file COVID-19 Exposure [...] Description 12/25/2024 3:00 PM CDT Office Visit [facility] - Pulmonology & Sleep Medicine [facility] #2 [place] [address] Tania Patino APRN, TEACHER SPECIALIST #[address] [address] 12/28/2024 5:00 PM CDT [facility] 1 [place] [address] Loraine Williamson APRN, TEACHER SPECIALIST [address] [place] [address] Discharge Disposition: Discharged to home or Selfcare 01/03/2025 1:30 PM CDT Office Visit [facility] - Cardiology [facility] #2 [place] [address] Godwin Zarate MD 2 [facility], [place] [address] 01/30/2025 11:00 AM CDT Office Visit [facility] - Primary Care - [place] [address] [place] [address] Loraine Williamson APRN, TEACHER SPECIALIST [address] [place] [address] documented as of this encounter Visit Diagnoses Diagnosis Moderate persistent asthma without complication Unspecified asthma documented in this encounter Additional Health Concerns Infection Onset Date Last Indicated Resolved Time COVID - 19 04/15/2022 04/15/2022 04/25/2022 12:1 6 AM REPLENISHMENT ANALYST Respiratory Rule-Out 04/15/2022 04/15/2022 022 10:53 AM REPLENISHMENT ANALYST COVID - 19 05/10/2022 05/10/2022 05/20/2022 12:1 6 AM REPLENISHMENT ANALYST COVID - 19 04/07/2024 04/07/2024 04/07/2024 11:5 0 AM REPLENISHMENT ANALYST Respiratory Rule-Out 06/25/2024 06/25/2024 025 12:40 PM REPLENISHMENT ANALYST COVID - 19 06/25/2024 06/25/2024 06/25/2024 12:4 5 PM REPLENISHMENT ANALYST Influenza 06/25/2024 06/25/2024 07/02/2024 12:1 6 AM REPLENISHMENT ANALYST documented as of this encounter Care Teams Construction Engineering Manager Relationship Specialty Start Date End Date Loraine Williamson APRN, TEACHER SPECIALIST [address] [place] [address] PCP - General Advanced Practice Nurse 03/20/21 Loraine Williamson APRN, TEACHER SPECIALIST [address] [place] [address] Nurse Practitioner Advanced Practice Nurse 02/26/21 Tania Patino APRN, JONAS #2 [facility] [address] [place] [address] Nurse Practitioner Advanced Practice Nurse 02/17/22 Jer Vines MD #2 [place] [address] Consulting Physician Neurology 05/25/22 Willie Saenz MD #[address] [address] Consulting Physician Colon and Rectal Surgery 07/12/23 Rena Ding MD #[address] [address] Consulting Physician Orthopaedic Surgery 07/03/24 documented as of this encounter
--- OUTSIDE RECORDS SUMMARY | 2024-12-18 12:23 | XMS_ITS | Encounter Summary ---
Author Organization [facility] Address [address] [place] [address] Phone Care Team Providers Care Fruit Picker Machine Operator Name Role Phone Loraine Williamson APRN, CNP Unavailable Loraine Williamson APRN, JONAS Primary Care P rovider Tania Patino APRN, ADMINISTRATIVE SUPPORT ASSOC Unavailable [phone] Jer Vines MD Unavailable [phone] Willie Saenz MD Unavailable Rena Dign MD Unavailable Reason for Visit * Reason Comments Medication Refill Encounter Details Date Type Department Care Team (Late st Contact Info) Description 06/06/2023 Refill [facility] - Primary Care - [place] [address] [place] [address] Loraine Williamson APRN, ADMINISTRATIVE SUPPORT ASSOC [address] [place] [address] Medication Refill Social History Tobacco [...] Sex Assigned at Female 07/09/2023 11:32 AM ARCHITECTURE MANAGER Legal Sex Female 11:13 PM CDT Gender Identity Female 07/09/2023 11:32 AM ARCHITECTURE MANAGER Sexual Orientation Not on file documented as of this encounter Miscellaneous Notes * Telephone Encounter - John Thomas RN - 06/07/2023 9:32 AM CST Duplicate Request ITECTURE MANAGER documented in this encounter Plan of Treatment Upcoming Encounters Date Type Department Care Team (Late st Contact Info) Description 12/25/2024 3:00 PM CDT [facility] #2 [place] [address] Tania Patino, GROUNDMAN, ADMINISTRATIVE SUPPORT ASSOC #[address] [address] 12/28/2024 5:00 PM CDT [facility] 1 [place] [address] Loraine Williamson, GROUNDMAN, ADMINISTRATIVE SUPPORT ASSOC [address] [place] [address] Discharge Disposition: Discharged to home or Selfcare 01/03/2025 1:30 PM CDT Office Visit [facility] - Cardiology [facility] #2 [place] [address] Godwin Zarate MD [address] [address] 01/30/2025 11:00 AM CDT Office Visit [facility] - Primary Care - [place] [address] [place] [address] Loraine Williamson APRN, JONAS [address] [place] [address] documented as of this encounter Visit Diagnoses Not on filedocumented in this encounter Additional Health Concerns Infection Onset Date Last Indicated Resolved Time COVID - 19 04/07/2024 04/07/2024 04/07/2024 11:5 0 AM ARCHITECTURE MANAGER Respiratory Rule-Out 06/25/2024 06/25/2024 025 12:40 PM ARCHITECTURE MANAGER COVID - 19 06/25/2024 06/25/2024 06/25/2024 12:4 5 PM ARCHITECTURE MANAGER Influenza 06/25/2024 06/25/2024 07/02/2024 12:1 6 AM ARCHITECTURE MANAGER documented as of this encounter Care Teams Fruit Picker Machine Operator Relationship Specialty Start Date End Date Loraine Williamson APRN, JONAS [address] [place] [address] PCP - General Advanced Practice Nurse 03/20/21 Loraine Williamson APRN, JONAS [address] [place] [address] Nurse Practitioner Advanced Practice Nurse 02/26/21 Tania Patino APRN, ADMINISTRATIVE SUPPORT ASSOC #[address] [address] Nurse Practitioner Advanced Practice Nurse 02/17/22 Jer Vines MD #2 [place] [address] Consulting Physician Neurology 1/23/23 Willie Saenz MD #[address] [address] Consulting Physician Colon and Rectal Surgery 07/12/23 Rena Ding MD #[address] [address] Consulting Physician Orthopaedic Surgery 07/03/24 documented as of this encounter
--- OUTSIDE RECORDS SUMMARY | 2024-12-18 12:23 | XMS_ITS | Patient Health Record ---
Author Organization [facility] Address [address] [place] [address] Care Team Providers Care Ophthalmic Technician Apprentice Name Role Phone Adilia Aguilar Primary Care Provider [phone] Allergies Allergen (clinical drug ingredient) Drug/Non Drug Allergy documented on EMR Reaction Allergy Type Onset Date Status amoxicillin / clavulanate Augmentin anaphylaxis Drug Allergy Active cefadroxil Cefadroxil anaphylaxis Drug Allergy Act flako Reason For Referral No Information Medications Medication SIG (Take, Route, Frequency, Duration) Notes Start Date End Date Status Abilify 10 MG 1 tablet Orally Once a day; Duration: 30 day(s) 05/05/2022 Active All Day Allergy 10 MG 1 tablet Orally On ce a day Active Biotin 10 MG 1 tablet Orally Once a day Active Vraylar 1.5 MG 1 capsule Orally Onc e a day; Duration: 30 day(s) Active Propranolol HCl 10 MG [...] W/U Status Risk Notes Problem Tobacco user (894253966) Nicotine dependence, unspecified, uncomplicated (F17.200) Active confirmed Problem Mood disorder (81391276) Mood disorder (F39) Active confirmed Plan Of Treatment No Information Insurance Providers Payer Name Payer Address Payer Phone Subscriber Number Group Number Insured Name Patient Relationship to Insured Coverage Start Date Coverage End Date [facility] Claims Department [address] [place] [address] [phone] [id number] Yanci Charles Self - patient is the insured [facility] [address] [place] [address] [phone] [id number] Yanci Charles Self - patient is the insured 2 Medical (General) History Medical History History ICD Code sleep apnea Surgical History Surgery Date(Month/Year) tubal ligation 06/2019 tonsillectomy
--- OUTSIDE RECORDS SUMMARY | 2024-12-18 12:30 | XMS_ITS | Clinical Summary ---
Author Organization [facility] Address [address] [place] [address] Care Team Providers Care Utility Sales Representative Name Role Phone Loraine Williamson NP Primary [...] on file Legal Sex Female 1:38 AM TEXTILES AND CLOTHING TEACHER Gender Identity Not on file Sexual Orientation [...] <65 (1 of 2 - PCV) 2009 HPV Vaccines (1 - 3-dose SCDM series) 2017 Covid-19 Vaccine (2 - 2023- season) 2024 Influenza Vaccine (#1) 2025 DTaP/Tdap/Td Vaccine (3 - Td or Tdap) 03/20/2030, 09/04/[address] [place] [address] [place] [address] [facility] Care Teams Utility Sales Representative Relationship Specialty Start Date End Date Loraine Williamson NP [address] [place] [address] PCP - General Emergency Medicine 06/19/22
== END 2024-12-18 12:18 | disposition home or self-care (01) ==
DX: J06.9 Acute upper respiratory infection, unspecified (principal); F17.290 Nicotine dependence, other tobacco product, uncomplicated; Z20.822 Contact with and (suspected) exposure to COVID-19
CPT/HCPCS: 87081; 87426; 87804; 87880; 99213; G0463